=== PATIENT | male | born 1925 | race Caucasian/White ===

== ENCOUNTER 2017-01-17 20:40 | Inpatient (IN) | payer MEDICARE ==
--- NOTE | 2017-01-17 21:59 | RAD ---
indication: Laceration to posterior scalp after a fall COMPARISON: Most recent CT of the brain is dated May 09, [address] scan of the brain and and maxillofacial bones was performed without intravenous contrast enhancement. Contiguous axial sections were obtained from the lower cervical spine through the cranial vertex. BRAIN: The ventricles, cisterns and sulci exhibit age-appropriate symmetrical involutional changes similar in appearance to the previous brain CT. There is periventricular and subcortical white matter hypoattenuation consistent with chronic microvascular disease. No significant focal abnormality or mass effect is seen. The kennedy-white differentiation is adequately maintained. There is coarse atherosclerotic calcification of the vertebral arteries and bilateral petrous carotid arteries. There is no evidence for intracranial hemorrhage. No significant bony abnormality is present. The mastoid air cells are appropriately aerated. The visualized paranasal sinuses are clear. FACIAL BONES: Bones: There is no displaced fracture or dislocation. The orbital rim is intact. The zygomatic arch is intact. The pterygoid plates are intact Orbits: The globes are round. The optic nerves are symmetric. The extraocular musculature is normal. There is no post septal or intraconal inflammatory change. There is no retrobulbar hematoma. Paranasal Sinuses: The paranasal sinuses are clear. IMPRESSION: 1. No calvarial fracture or acute intracranial hemorrhage. 2. No facial bone fractures.
[2017-01-17 22:11] LABS: Hematocrit 43 % (42-52); Hemoglobin 14.3 g/dl (14.0-18.0); Mean Corpuscular HGB Conc 34 g/dl (31-36); Mean Corpuscular Hemoglobin 30 pg (27-31); Mean Corpuscular Volume 90 fL (80-94); Mean Platelet Volume 7 um3 (7.4-10.4); Red Blood Count 4.71 10^6/ul (4.0-5.4); Red Cell Distribution Width 13 % (10.5-15); White Blood Count 11.7 10^3/ul (3.5-10.8)
[2017-01-17 22:24] LABS: Albumin 3.7 g/dL (3.2-5.2); Calcium 8.9 mg/dL (8.6-10.3); EGFR Non-African American 74.6 (>60); Globulin 2.5 g/dL (2-4); Total Bilirubin 0.4 mg/dL (0.2-1.0); Total Protein 6.2 g/dL (6.4-8.9)
[2017-01-17 22:25] LABS: Potassium 3.3 mmol/L (3.5-5.0)
[2017-01-17 22:26] LABS: Troponin I 0.02 ng/mL (<0.04)
--- NOTE | 2017-01-17 23:28 | ED ---
Clarissa Ordonez SooYoung, scribed for Seth Alas MD on 01/17/17 at 2114 . 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 Pt has a bleeding cut to posterior head, and visible bruising and erythema to face across nose bridge. Family notes this is his third fall this week. Pt has recently begun ambulating with a walker. Family states pt had a recent dx: B12 deficiency. - History Of Current Complaint Chief Complaint: EDHeadInjury Stated Complaint: FALL Time Seen by Provider: 01/17/17 21:08 Hx Obtained From: Patient, Family/Lab Instructor Mechanism Of Injury: Fall From A Standing Position Onset/Duration: Started Hours Ago, Still Present Onset of Pain: Immediate Severity Currently: Moderate Severity Initially: Moderate Pain Intensity: 6 Pain Scale Used: 0-10 Numeric Location of Head Injury: Occipital Associated Signs And Symptoms: Redness, Bruising - Allergies/Home Medications Allergies/Adverse Reactions: Allergies Allergy/AdvReac Type Severity Reaction Status Date / Time No Known Allergies Allergy Verified 02/24/13 10:30 Home Medications: Home Medications Aspirin 81 MG TAB 81 mg PO DAILY 01/18/17 [History Confirmed 01/18/17] Celexa 20 mg PO DAILY 01/18/17 [History Confirmed 01/18/17] Keppra 500 500 mg PO BID 01/18/17 [History Confirmed 01/18/17] Losartan TAB* 25 mg PO DAILY 01/18/17 [History Confirmed 01/18/17] PMH/Surg Hx/FS Hx/Imm Hx Previously Healthy: No Endocrine/Hematology History: Denies: Hx Anticoagulant Therapy, Hx Blood Disorders, Hx Blood Transfusions, Hx Bone Marrow Disease, Hx Diabetes, Hx Systemic Lupus Erythematosus, Hx Sickle Cell Disease, Hx Thyroid Disease, Hx Anemia, Hx Unexplained Bleeding, Other Endocrine/Hematological Disorders Cardiovascular History: Reports: Hx Auto Implanted Cardiovert Defib, Hx Hypertension, Hx Pacemaker/ICD, Hx Valvular Heart Disease Denies: Hx Aneurysm, Hx Cardiac Arrest, Hx Cardiomegaly, Hx Congenital Heart Disease, Hx Congestive Heart Failure, Hx Coronary Artery Disease, Hx Deep Vein Thrombosis, Hx Hypercholesterolemia, Hx Hypotension, Hx Peripheral Vascular Disease, Hx Rheumatic Fever, Hx Syncope, Other Cardiovascular Problems/Disorders Respiratory History: Denies: Hx Asthma, Hx Chronic Bronchitis, Hx Chronic Obstructive Pulmonary Disease (COPD), Hx Cystic Fibrosis, Hx Lung Cancer, Hx Pleural Effusion, Hx Pneumonia, Hx Pulmonary Edema, Hx Pulmonary Embolism, Hx Seasonal Allergies, Hx Sleep Apnea, Other Respiratory Problems/Disorders GI History: Denies: Hx Cirrhosis, Hx Crohn's Disease, Hx Diverticulosis, Hx Gall Bladder Disease, Hx Gastroesophageal Reflux Disease, Hx Gastrointestinal Bleed, Hx Hiatal Hernia, Hx Irritable Bowel, Hx Jaundice, Hx Obstructive Bowel, Hx Ileostomy, Hx Pyloric Stenosis, Hx Ulcer, Other GI Disorders History: Denies: Hx Acute Renal Failure, Hx Benign Prostatic Hyperplasia, Hx Chronic Renal Failure, Hx Dialysis, Hx Kidney Infection, Hx Kidney Stones, Other Problems/Disorders Musculoskeletal History: Denies: Hx Arthritis, Hx Back Problems, Hx Bursitis, Hx Congenital Bone Abnormalities, Hx Fibromyalgia, Hx Gout, Hx Orthopedic Injury, Hx Osteoporosis, Hx Scoliosis, Hx Tendonitis, Other Musculoskeletal History Sensory History: Reports: Hx Cataracts Denies: Hx Contacts or Glasses, Hx Eye Injury, Hx Eye Prosthesis, Hx Glaucoma , Hx Macular Degeneration, Hx Vision Problem, Hx Deafness, Hx Hearing Aid, Hx Hearing Problem, Other Sensory Impairments Opthamlomology History: Reports: Hx Cataracts Denies: Hx Contacts or Glasses, Hx Eye Injury, Hx Eye Prosthesis, Hx Glaucoma , Hx Macular Degeneration, Hx Vision Problem, Other Sensory Impairments Neurological History: Reports: Hx Seizures Denies: Hx Dementia, Hx Developmental Delay, Hx Headaches, Hx Migraine, Hx Nerve Disease, Hx Spinal Cord Injury, Hx Transient Ischemic Attacks (TIA), Other Neuro Impairments/Disorders Psychiatric History: Denies: Hx Anxiety, Hx Attention Deficit Hyperactivity Disorder, Hx Eating Disorder, Hx Depression, Hx Panic Disorder, Hx Post Traumatic Stress Disorder, Hx Inpatient Treatment, Hx Community Mental Health Tx, Hx Schizophrenia, Hx Bipolar Disorder, Hx Suicide Attempt, Hx of Violent Episodes Against Others, Hx Substance Abuse, Other Psychiatric Issues/Disorders - Cancer History Hx Chemotherapy: No Hx Radiation Therapy: No - Surgical History Hx Anesthesia Reactions: No Infectious Disease History: No Infectious Disease History: Reports: Hx Shingles Denies: Hx Clostridium Difficile, Hx Hepatitis, Hx Human Immunodeficiency Virus (HIV), Hx Tuberculosis, Traveled Outside the [place] in Last 30 Days - Social History Alcohol Use: None Alcohol Amount: 1 beer daily Substance Use Type: Reports: None Smoking Status (MU): Former Smoker Review of Systems Positive: Bruising, Other - pos: erythema to face; lac to posterior of head All Other Systems Reviewed And Are Negative: Yes Physical Exam Triage Information Reviewed: Yes Vital Signs On Initial Exam: Initial Vitals Temp Pulse Resp BP Pulse Ox 97.7 F 70 16 189/93 92 01/17/17 20:41 01/17/17 20:41 01/17/17 20:41 01/17/17 20:41 01/17/17 20:41 Vital Signs Reviewed: Yes Appearance: Positive: Pain Distress - mild discomfort, Thin Skin: Positive: Warm Head/Face: Positive: Other - lac to bridge of nose occipital scalp Eyes: Positive: EOMI, MARISOL ENT: Positive: Hearing grossly normal Neck: Positive: Supple Respiratory/Lung Sounds: Positive: Clear to Auscultation, Breath Sounds Present Cardiovascular: Positive: RRR Abdomen Description: Positive: Nontender, Soft Bowel Sounds: Positive: Present Musculoskeletal: Positive: Strength/ROM Intact Psychiatric: Positive: Affect/Mood Appropriate Diagnostics - Vital Signs Vital Signs Temp Pulse Resp BP Pulse Ox 01/17/17 20:51 67 22 93 01/17/17 20:49 189/93 01/17/17 20:41 97.7 F 70 16 189/93 92 - Laboratory Lab Results: Lab Results 01/17/17 01/17/17 01/17/17 Range/Units 21:56 21:56 21:56 WBC 11.7 H (3.5-10.8) 10^3/ul RBC 4.71 (4.0-5.4) 10^6/ul Hgb 14.3 (14.0-18.0) g/dl Hct 43 (42-52) % MCV 90 (80-94) fL MCH 30 (27-31) pg MCHC 34 (31-36) g/dl RDW 13 (10.5-15) % Plt Count 221 (150-450) 10^3/ul MPV 7 L (7.4-10.4) um3 Neut % (Auto) 76.5 (38-83) % Lymph % (Auto) 12.3 L (25-47) % [place] % (Auto) 10.0 H (1-9) % Eos % (Auto) 0.6 (0-6) % Baso % (Auto) 0.6 (0-2) % Absolute Neuts (auto) 9.0 H (1.5-7.7) 10^3/ul Absolute Lymphs (auto) 1.4 (1.0-4.8) 10^3/ul Absolute Monos (auto) 1.2 H (0-0.8) 10^3/ul Absolute Eos (auto) 0.1 (0-0.6) 10^3/ul Absolute Basos (auto) 0.1 (0-0.2) 10^3/ul Absolute Nucleated RBC 0 10^3/ul Nucleated RBC % 0 INR (Anticoag Therapy) 0.96 (0.89-1.11) Sodium 130 L (133-145) mmol/L Potassium 3.3 L (3.5-5.0) mmol/L Chloride 97 L (101-111) mmol/L Carbon Dioxide 26 (22-32) mmol/L Anion Gap 7 (2-11) mmol/L BUN 19 (6-24) mg/dL Creatinine 0.95 (0.67-1.17) mg/dL Est GFR ( Amer) 96.0 (>60) Est GFR (Non-Af Amer) 74.6 (>60) BUN/Creatinine Ratio 20.0 (8-20) Glucose 105 H (70-100) mg/dL Lactic Acid (0.5-2.0) mmol/L Calcium 8.9 (8.6-10.3) mg/dL Magnesium 2.0 (1.9-2.7) mg/dL Total Bilirubin 0.40 (0.2-1.0) mg/dL AST 12 L (13-39) U/L ALT 8 (7-52) U/L Alkaline Phosphatase 92 (34-104) U/L Troponin I 0.02 (<0.04) ng/mL Total Protein 6.2 L (6.4-8.9) g/dL Albumin 3.7 (3.2-5.2) g/dL Globulin 2.5 (2-4) g/dL Albumin/Globulin Ratio 1.5 (1-3) 01/17/ Range/Units 21:56 WBC (3.5-10.8) 10^3/ul RBC (4.0-5.4) 10^6/ul Hgb (14.0-18.0) g/dl Hct (42-52) % MCV (80-94) fL MCH (27-31) pg MCHC (31-36) g/dl RDW (10.5-15) % Plt Count (150-450) 10^3/ul MPV (7.4-10.4) um3 Neut % (Auto) (38-83) % Lymph % (Auto) (25-47) % [place] % (Auto) (1-9) % Eos % (Auto) (0-6) % Baso % (Auto) (0-2) % Absolute Neuts (auto) (1.5-7.7) 10^3/ul Absolute Lymphs (auto) (1.0-4.8) 10^3/ul Absolute Monos (auto) (0-0.8) 10^3/ul Absolute Eos (auto) (0-0.6) 10^3/ul Absolute Basos (auto) (0-0.2) 10^3/ul Absolute Nucleated RBC 10^3/ul Nucleated RBC % INR (Anticoag Therapy) (0.89-1.11) Sodium (133-145) mmol/L Potassium (3.5-5.0) mmol/L Chloride (101-111) mmol/L Carbon Dioxide (22-32) mmol/L Anion Gap (2-11) mmol/L BUN (6-24) mg/dL Creatinine (0.67-1.17) mg/dL Est GFR ( Amer) (>60) Est GFR (Non-Af Amer) (>60) BUN/Creatinine Ratio (8-20) Glucose (70-100) mg/dL Lactic Acid 1.1 (0.5-2.0) mmol/L Calcium (8.6-10.3) mg/dL Magnesium (1.9-2.7) mg/dL Total Bilirubin (0.2-1.0) mg/dL AST (13-39) U/L ALT (7-52) U/L Alkaline Phosphatase (34-104) U/L Troponin I (<0.04) ng/mL Total Protein (6.4-8.9) g/dL Albumin (3.2-5.2) g/dL Globulin (2-4) g/dL Albumin/Globulin Ratio (1-3) Result Diagrams: 01/17/17 21:56 01/17/17 21:56 Lab Statement: Any lab studies that have been ordered have been reviewed, and results considered in the medical decision making process. - CT Maxillofacial CT Interpretation: No Acute Changes - IMPRESSION: 1. No calvarial fracture or acute intracranial hemorrhage. 2. No facial bone fractures. CT Interpretation Completed By: Radiologist BRAIN CT CT Interpretation: No Acute Changes - IMPRESSION: 1. No calvarial fracture or acute intracranial hemorrhage. 2. No facial bone fractures. CT Interpretation Completed By: Radiologist - EKG 1 EKG Interpretation: Paced rhythm Re-Evaluation - Re-Evaluation 1 Re-Evaluation Time: 23:49 Change: Unchanged Comment: Pt having dizziness upon ambulation. Will discuss admitting with hospitalist. 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 Pt has a bleeding cut to posterior head, and visible bruising and erythema to face across nose bridge. This is his third fall this week. Trop is 0.02. Maxillofacial CT is nml. Brain CT is nml. EKG shows pace rhythm. Lac repair performed by FILIBERTO Lizarraga, see her procedure note. - Diagnoses Provider Diagnoses: Head injury, Dizziness - Physician Notifications Discussed Care Of Patient With: Dr. Tirado, hospitalist Time Discussed With Above Provider: 23:49 Instructed by Provider To: Admit As Inpatient Discharge - Discharge Plan Condition: Fair Disposition: ADMITTED TO [facility] The documentation as recorded by the Clarissa alexander SooYoung accurately reflects the service I personally performed and the decisions made by me, Seth Alas MD.
--- NOTE | 2017-01-17 23:37 | PN ---
Progress Note - Progress Note Note: Wounds were cleaned and irrigated with normal saline. 6 lisa were placed in right posterior scalp laceration approximately 3-3.5cm in length, linear. Skin avulsion on bridge of nose was dressed with xeroform and telfa. Superficial laceration, linear, under right eye in periorbital space was glued with skin adhesive. All were completed without complication. Do not get wet for 24-48 hours. Remove in 5 days.
--- NOTE | 2017-01-18 00:17 | HP ---
H&P (Free Text) History and Physical: PCP: BRANDON Eisenberg MD Neurology: Jerardo Concepcion MD Date/Time of Evaluation: 01/17/2017 9151 CC: head injury 2nd fall HPI: Mr Jarrett is an 89YO male HX petit mal seizures started on citalopram ~3 weeks ago. ~2 weeks ago he experienced a mechanical fall and family purchased a walker. He fell a 2nd time, but was not using the walker. Since he has fallen twice more, most recently tonight. This fall he did hit his head and thinks he lost consciousness, but his & daughter are present and state he did not lose consciousness. He denies prodromal symptoms, specifically chest pain, SOB, palpitations, changes in vision/speech, focal W/N/T, or other issues. The family is confident these recent falls are not related to seizures, but not all have been witnessed. He did have a levetiracetam level last week which was therapeutic at 32. PMedHx HTN bioprosthetic AVR seizure disorder (petit mal) GERD BPH B12 deficiency w/ mild peripheral neuropathy empyema age 5 s/p decortication Ambulatory Orders Nursing to reconcile. Hydrochlorothiazide TAB* [Hydrodiuril TAB*] 12.5 mg PO DAILY 02/24/13 Lansoprazole [Prevacid] 15 mg PO DAILY 02/24/13 Metoprolol Tartrate TAB* [Lopressor TAB*] 25 mg PO DAILY 02/24/13 Ramipril CAP* [Altace CAP*] 15 mg PO DAILY 02/24/13 Tamsulosin CAP* [Flomax CAP*] 0.4 mg PO BEDTIME 05/08/14 Allergies No Known Allergies Allergy (Verified 02/24/13 10:30) PSurgHx cataract extraction AV pacer placement empyema s/p decortication age 5 bioprosthetic AVR cholecystectomy appendectomy hernia repair SocHx: former smoker quit >50years ago, minimal alcohol, no recreational drugs; lives at home with his , 2 steps; family independently purchased a walker ~ 10days ago; full code status FamHx: positive for HTN, HLD, CAD ROS: as above, otherwise reviewed and all were negative Constitutional: NAD, normally developed, well-nourished elderly white male vitals: Vital Signs Temp 36.5 C 01/17/17 20:41 Pulse 68 01/18/17 00:00 Resp 25 01/18/17 00:00 BP 198/96 01/17/17 23:56 Pulse Ox 93 01/18/17 00:00 Intake & Output 01/17/17 01/17/17 01/18/17 11:59 23:59 11:59 Weight 63.503 kg HEENM: facial ecchymosis; sclera/conjunctiva: non-icteric/mildly injected OU; blephara: ecchymotic "raccoon eyes"; hearing: clinically mild to moderately decreased; nose/nasal: ecchymosis, clean bandage in place; oropharynx: clear, mucosa tacky Neck: soft tissue: non-tender; thyroid: normal Pulmonary: clear to auscultation bilaterally, good aeration, no accessory muscle use CV: RR/RR, normal S1S2, no carotid bruit, no jugular venous distention, 2+ B DP/ PT, no edema Abdominal: soft, non-distended, non-tender, no rebound/guarding/rigidity, normoactive bowel sounds, no hepatosplenomegaly or masses, no costovertebral angle tenderness Musculoskeletal: general: grossly intact; gait: unstable w/ 2 person assist & walker Integumental: as above, otherwise normal appearance and texture of exposed skin Neurologic B feet: intact crude touch with extinction on the R, intact proprioception B & pinprick B, absent vibratory sense B Psychiatric orientation: AA&O to PPS, but mildly confused affect: calm mood: acquiescent eye contact: fair to poor content: partially reliable responses: mildly slowed insight: poor Testing: Lab Results 01/17/17 01/17/17 01/17/17 Range/Units 21:56 21:56 21:56 WBC 11.7 H (3.5-10.8) 10^3/ul RBC 4.71 (4.0-5.4) 10^6/ul Hgb 14.3 (14.0-18.0) g/dl Hct 43 (42-52) % MCV 90 (80-94) fL MCH 30 (27-31) pg MCHC 34 (31-36) g/dl RDW 13 (10.5-15) % Plt Count 221 (150-450) 10^3/ul MPV 7 L (7.4-10.4) um3 Neut % (Auto) 76.5 (38-83) % Lymph % (Auto) 12.3 L (25-47) % [place] % (Auto) 10.0 H (1-9) % Eos % (Auto) 0.6 (0-6) % Baso % (Auto) 0.6 (0-2) % Absolute Neuts (auto) 9.0 H (1.5-7.7) 10^3/ul Absolute Lymphs (auto) 1.4 (1.0-4.8) 10^3/ul Absolute Monos (auto) 1.2 H (0-0.8) 10^3/ul Absolute Eos (auto) 0.1 (0-0.6) 10^3/ul Absolute Basos (auto) 0.1 (0-0.2) 10^3/ul Absolute Nucleated RBC 0 10^3/ul Nucleated RBC % 0 INR (Anticoag Therapy) 0.96 (0.89-1.11) Sodium 130 L (133-145) mmol/L Potassium 3.3 L (3.5-5.0) mmol/L Chloride 97 L (101-111) mmol/L Carbon Dioxide 26 (22-32) mmol/L Anion Gap 7 (2-11) mmol/L BUN 19 (6-24) mg/dL Creatinine 0.95 (0.67-1.17) mg/dL Est GFR ( Amer) 96.0 (>60) Est GFR (Non-Af Amer) 74.6 (>60) BUN/Creatinine Ratio 20.0 (8-20) Glucose 105 H (70-100) mg/dL Lactic Acid (0.5-2.0) mmol/L Calcium 8.9 (8.6-10.3) mg/dL Magnesium 2.0 (1.9-2.7) mg/dL Total Bilirubin 0.40 (0.2-1.0) mg/dL AST 12 L (13-39) U/L ALT 8 (7-52) U/L Alkaline Phosphatase 92 (34-104) U/L Troponin I 0.02 (<0.04) ng/mL Total Protein 6.2 L (6.4-8.9) g/dL Albumin 3.7 (3.2-5.2) g/dL Globulin 2.5 (2-4) g/dL Albumin/Globulin Ratio 1.5 (1-3) 05// Range/Units 21:56 WBC (3.5-10.8) 10^3/ul RBC (4.0-5.4) 10^6/ul Hgb (14.0-18.0) g/dl Hct (42-52) % MCV (80-94) fL MCH (27-31) pg MCHC (31-36) g/dl RDW (10.5-15) % Plt Count (150-450) 10^3/ul MPV (7.4-10.4) um3 Neut % (Auto) (38-83) % Lymph % (Auto) (25-47) % [place] % (Auto) (1-9) % Eos % (Auto) (0-6) % Baso % (Auto) (0-2) % Absolute Neuts (auto) (1.5-7.7) 10^3/ul Absolute Lymphs (auto) (1.0-4.8) 10^3/ul Absolute Monos (auto) (0-0.8) 10^3/ul Absolute Eos (auto) (0-0.6) 10^3/ul Absolute Basos (auto) (0-0.2) 10^3/ul Absolute Nucleated RBC 10^3/ul Nucleated RBC % INR (Anticoag Therapy) (0.89-1.11) Sodium (133-145) mmol/L Potassium (3.5-5.0) mmol/L Chloride (101-111) mmol/L Carbon Dioxide (22-32) mmol/L Anion Gap (2-11) mmol/L BUN (6-24) mg/dL Creatinine (0.67-1.17) mg/dL Est GFR ( Amer) (>60) Est GFR (Non-Af Amer) (>60) BUN/Creatinine Ratio (8-20) Glucose (70-100) mg/dL Lactic Acid 1.1 (0.5-2.0) mmol/L Calcium (8.6-10.3) mg/dL Magnesium (1.9-2.7) mg/dL Total Bilirubin (0.2-1.0) mg/dL AST (13-39) U/L ALT (7-52) U/L Alkaline Phosphatase (34-104) U/L Troponin I (<0.04) ng/mL Total Protein (6.4-8.9) g/dL Albumin (3.2-5.2) g/dL Globulin (2-4) g/dL Albumin/Globulin Ratio (1-3) ECG, personally reviewed: atrially sensed ventricularly paced rhythm rate 64 CT brain & maxillofacial WO, personally reviewed: IMPRESSION: 1. No calvarial fracture or acute intracranial hemorrhage. 2. No facial bone fractures. 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 : pain control : check UA, nursing to straight cath if needed : hold citalopram as it lowers the seizure threshold (falls began after initiation) & contributes to dizziness : hold HCTZ : supportive care hypoKalemia : replace & recheck Secondary HTN : continue losartan, metoprolol : hold HCTZ seizure disorder, petit mal : continue levetiracetam bioprosthetic AVR : no acute issues : update ECHO to confirm adequate function GERD : continue lansoprazole B12 deficiency w/ mild peripheral neuropathy : outpatient f/u to initiate B12 replacement : neuropathy not severe enough to significant contribute to falls BPH : continue tamsulosin Admission Rational: DVTp: SCDs, no anticoagulation w/ recent closed head injury Code Status: full HCP:
[2017-01-18] MEDS ORDERED: Ondansetron INJ* 2 MG/ML VIAL IV PRN (01:25)
[2017-01-18] MEDS: Potassium Chlor TAB* 20 MEQ TAB.ER PO SCH ×2 (01:51→06:02)
[2017-01-18 02:27] LABS: Urine Bacteria Absent (Absent); Urine Bilirubin Negative (Negative); Urine Glucose Negative (Negative); Urine Nitrite Negative (Negative)
[2017-01-18] MEDS: Ibuprofen TAB* 400 MG PO PRN (02:45)
[2017-01-18] MEDS: NS 0.9% 1000 ML* 1,000 ML IV SCH (03:38)
[2017-01-18] MEDS: Acetaminophen TAB* 325 MG PO PRN (04:59)
[2017-01-18] MEDS ORDERED: Omeprazole CAP* 20 MG PO SCH (06:00)
[2017-01-18] MEDS: Omeprazole CAP* 20 MG PO SCH (06:01)
[2017-01-18 06:56] LABS: Hematocrit 40 % (42-52); Hemoglobin 13.8 g/dl (14.0-18.0); Mean Corpuscular HGB Conc 34 g/dl (31-36); Mean Corpuscular Hemoglobin 31 pg (27-31); Mean Corpuscular Volume 89 fL (80-94); Mean Platelet Volume 7 um3 (7.4-10.4); Red Blood Count 4.52 10^6/ul (4.0-5.4); Red Cell Distribution Width 13 % (10.5-15); White Blood Count 10.9 10^3/ul (3.5-10.8)
[2017-01-18 07:09] LABS: BUN/Creatinine Ratio 18.8 (8-20); Calcium 8.7 mg/dL (8.6-10.3); EGFR African American 94.8 (>60); EGFR Non-African American 73.8 (>60); Potassium 3.5 mmol/L (3.5-5.0)
[2017-01-18] MEDS: levETIRAcetam TAB* 500 MG PO SCH ×2 (08:52→20:51)
[2017-01-18] MEDS: Docusate CAP* 100 MG PO SCH ×2 (08:52→20:51)
[2017-01-18] MEDS: Aspirin EC Low Dose* 81 MG TAB.EC PO SCH (08:52)
[2017-01-18] MEDS: Metoprolol Tartrate TAB* 25 MG PO SCH (08:52)
[2017-01-18] MEDS ORDERED: Losartan TAB* 25 MG PO SCH (09:00)
--- NOTE | 2017-01-18 18:10 | PN ---
Subjective Date of Service: 01/18/17 Interval History: Patient had fall 2 weeks ago, Friday, 1 day after starting Celexa. Has been walking 10-20 min 2x/day in Aug-November in [place] w/o significant balance issues. In last 2 weeks has fallen 3 times, first in shower, hit head on shower door. 2nd fall was in kitchen, third was yesterday, getting up from bed to walker. He denies vertigo, feels suddenly imbalanced when upright. Does have h/o seizure, described as abscence seizures by family. On [facility], sees Dr. Concepcion Family concerned about different BP in both arms. Also concerned about concussion from 1st fall. Family History: Unchanged from Admission Social History: Unchanged from Admission Past Medical History: Unchanged from Admission Objective Active Medications: Acetaminophen (Tylenol Tab*) 650 mg PO Q6H PRN PRN Reason: FEVER/PAIN Last Admin: 01/18/17 04:59 Dose: 650 mg Albuterol (Ventolin 2.5 Mg/3 Ml Neb.Carmen*) 2.5 mg INH Q2H PRN PRN Reason: SOB/WHEEZING Aspirin (Aspirin Ec Low Dose*) 81 mg PO DAILY [facility] Last Admin: 01/18/17 08:52 Dose: 81 mg Docusate Sodium (Colace Cap*) 200 mg PO BID [facility] Last Admin: 01/18/17 08:52 Dose: 200 mg Sodium Chloride (Ns 0.9% 1000 Ml*) 1,000 mls @ 75 mls/hr IV PER RATE [facility] Last Admin: 01/18/17 03:38 Dose: 75 mls/hr Ibuprofen (Motrin Tab*) 400 mg PO Q8H PRN PRN Reason: FEVER/PAIN Last Admin: 01/18/17 02:45 Dose: 400 mg Levetiracetam (Keppra Tab*) 500 mg PO BID [facility] Last Admin: 01/18/17 08:52 Dose: 500 mg Losartan Potassium (Cozaar Tab*) 25 mg PO DAILY [facility] Last Admin: 01/18/17 08:52 Dose: 25 mg Metoprolol Tartrate (Lopressor Tab*) 25 mg PO DAILY [facility] Last Admin: 01/18/17 08:52 Dose: 25 mg Omeprazole (Prilosec Cap*) 20 mg PO DAILY@0600 [facility] PRN Reason: Protocol Last Admin: 01/18/17 06:01 Dose: 20 mg Ondansetron HCl (Zofran Inj*) 4 mg IV Q6H PRN PRN Reason: NAUSEA Tamsulosin HCl (Flomax Cap*) 0.4 mg PO BEDTIME [facility] Vital Signs 01/18/17 01/18/17 01/18/17 07:47 08:00 11:25 Temperature 36.6 C 36.4 C Pulse Rate 61 63 Respiratory 16 16 16 Rate Blood Pressure 152/92 146/85 (mmHg) O2 Sat by Pulse 96 97 Oximetry 01/18/17 15:50 Temperature 36.1 C Pulse Rate 60 Respiratory Rate Blood Pressure 184/98 (mmHg) O2 Sat by Pulse 96 Oximetry Oxygen Devices in Use Now: None Appearance: elderly, alert, bandage on nose Eyes: No Scleral Icterus Ears/Nose/Mouth/Throat: - - bandage Neck: No Thyroid Enlargement, Masses Respiratory: Clear to Auscultation Cardiovascular: NL Sounds; No Murmurs; No JVD Abdominal: NL Sounds; No Tenderness; No Distention Lymphatic: No Cervical Adenopathy Extremities: No Edema Skin: - - ecchymosis in periorbital area bilat Neurological: Alert and Oriented x 3, - - DTR 1+/symmetric UE, LE, no tremor or cogwheeling, no pronator drift. L leg clumsy in heel/ennis maneuver Lines/Tubes/Other Access: Clean, Dry and Intact Peripheral IV Result Diagrams: 01/18/17 06:23 01/18/17 06:23 Additional Lab and Data: Lab Results 01/17/17 01/17/17 01/17/17 Range/Units 21:56 21:56 21:56 WBC 11.7 H (3.5-10.8) 10^3/ul RBC 4.71 (4.0-5.4) 10^6/ul Hgb 14.3 (14.0-18.0) g/dl Hct 43 (42-52) % MCV 90 (80-94) fL MCH 30 (27-31) pg MCHC 34 (31-36) g/dl RDW 13 (10.5-15) % Plt Count 221 (150-450) 10^3/ul MPV 7 L (7.4-10.4) um3 Neut % (Auto) 76.5 (38-83) % Lymph % (Auto) 12.3 L (25-47) % [place] % (Auto) 10.0 H (1-9) % Eos % (Auto) 0.6 (0-6) % Baso % (Auto) 0.6 (0-2) % Absolute Neuts (auto) 9.0 H (1.5-7.7) 10^3/ul Absolute Lymphs (auto) 1.4 (1.0-4.8) 10^3/ul Absolute Monos (auto) 1.2 H (0-0.8) 10^3/ul Absolute Eos (auto) 0.1 (0-0.6) 10^3/ul Absolute Basos (auto) 0.1 (0-0.2) 10^3/ul Absolute Nucleated RBC 0 10^3/ul Nucleated RBC % 0 INR (Anticoag Therapy) 0.96 (0.89-1.11) Sodium 130 L (133-145) mmol/L Potassium 3.3 L (3.5-5.0) mmol/L Chloride 97 L (101-111) mmol/L Carbon Dioxide 26 (22-32) mmol/L Anion Gap 7 (2-11) mmol/L BUN 19 (6-24) mg/dL Creatinine 0.95 (0.67-1.17) mg/dL Est GFR ( Amer) 96.0 (>60) Est GFR (Non-Af Amer) 74.6 (>60) BUN/Creatinine Ratio 20.0 (8-20) Glucose 105 H (70-100) mg/dL Lactic Acid (0.5-2.0) mmol/L Calcium 8.9 (8.6-10.3) mg/dL Magnesium 2.0 (1.9-2.7) mg/dL Total Bilirubin 0.40 (0.2-1.0) mg/dL AST 12 L (13-39) U/L ALT 8 (7-52) U/L Alkaline Phosphatase 92 (34-104) U/L Troponin I 0.02 (<0.04) ng/mL Total Protein 6.2 L (6.4-8.9) g/dL Albumin 3.7 (3.2-5.2) g/dL Globulin 2.5 (2-4) g/dL Albumin/Globulin Ratio 1.5 (1-3) 05/26/17 Range/Units 21:56 WBC (3.5-10.8) 10^3/ul RBC (4.0-5.4) 10^6/ul Hgb (14.0-18.0) g/dl Hct (42-52) % MCV (80-94) fL MCH (27-31) pg MCHC (31-36) g/dl RDW (10.5-15) % Plt Count (150-450) 10^3/ul MPV (7.4-10.4) um3 Neut % (Auto) (38-83) % Lymph % (Auto) (25-47) % [place] % (Auto) (1-9) % Eos % (Auto) (0-6) % Baso % (Auto) (0-2) % Absolute Neuts (auto) (1.5-7.7) 10^3/ul Absolute Lymphs (auto) (1.0-4.8) 10^3/ul Absolute Monos (auto) (0-0.8) 10^3/ul Absolute Eos (auto) (0-0.6) 10^3/ul Absolute Basos (auto) (0-0.2) 10^3/ul Absolute Nucleated RBC 10^3/ul Nucleated RBC % INR (Anticoag Therapy) (0.89-1.11) Sodium (133-145) mmol/L Potassium (3.5-5.0) mmol/L Chloride (101-111) mmol/L Carbon Dioxide (22-32) mmol/L Anion Gap (2-11) mmol/L BUN (6-24) mg/dL Creatinine (0.67-1.17) mg/dL Est GFR ( Amer) (>60) Est GFR (Non-Af Amer) (>60) BUN/Creatinine Ratio (8-20) Glucose (70-100) mg/dL Lactic Acid 1.1 (0.5-2.0) mmol/L Calcium (8.6-10.3) mg/dL Magnesium (1.9-2.7) mg/dL Total Bilirubin (0.2-1.0) mg/dL AST (13-39) U/L ALT (7-52) U/L Alkaline Phosphatase (34-104) U/L Troponin I (<0.04) ng/mL Total Protein (6.4-8.9) g/dL Albumin (3.2-5.2) g/dL Globulin (2-4) g/dL Albumin/Globulin Ratio (1-3) Assess/Plan/Problems-Billing Assessment: 89 year old man w/ recurrent falls in last 2 weeks, possibly due to SSRI, hyponatremia, UTI, cerebellar stroke. - Patient Problems (1) Ataxia Current Visit: Yes Status: Acute Priority: High Code(s): R27.0 - ATAXIA, UNSPECIFIED SNOMED Code(s): 04411817 Comment: -Differential as above discussed with patient and family -Differential also includes parkinsons disease, spinal stenosis -Will pursue MRI brain r/o cerebellar infarct. -Consider neurology consult. PT tiago appreciated. (2) UTI (urinary tract infection) Current Visit: Yes Status: Acute Priority: Medium Comment: -UA consistent with UTI, only symptom would be recurrent falls. -starting on Ceftin PO (3) Subclavian arterial stenosis Current Visit: Yes Status: Acute Priority: Medium Code(s): I77.1 - STRICTURE OF ARTERY SNOMED Code(s): 636538769 Comment: -suspect subclavian stenosis based on differential BP in both arms -CTA chest/neck great vessels discussed -repeat BP 186/95 LT arm, 174/94 RT arm. Will not pursue CT at this time. (4) Vitamin B12 deficiency Current Visit: Yes Status: Acute Priority: Medium Code(s): E53.8 - DEFICIENCY OF OTHER SPECIFIED B GROUP VITAMINS SNOMED Code(s): 291942853 Comment: -newly diagnosed 1 week ago, not treated yet -B12 IM initiated today -may have peripheral neuropathy contributing to imbalance (5) Hyponatremia Current Visit: No Status: Acute Priority: Medium Onset Date: 05/08/14 Code(s): E87.1 - HYPO-OSMOLALITY AND HYPONATREMIA SNOMED Code(s): 86343842 Comment: -hyponatremia is mild, may be due to SSRI, or HCTZ. -Holding above, receiving IVF, reasses in AM (6) Hypertension Current Visit: Yes Status: Acute Priority: Medium Code(s): I10 - ESSENTIAL (PRIMARY) HYPERTENSION SNOMED Code(s): 80955320 Comment: -BP running high, will increase losartan -ARBs can also cause hyponatremia, may need to be held. Status and Disposition: Requires inpatient admission for further investigation of ataxia
[2017-01-18] MEDS ORDERED: Cyanocobalamin INJ * 1,000 MCG/ML VIAL 1 ML VIAL IM SCH (19:00)
[2017-01-18] MEDS: Losartan TAB* 25 MG PO SCH (20:51)
[2017-01-18] MEDS: Tamsulosin CAP* 0.4 MG PO SCH (20:51)
[2017-01-18] MEDS: ceFUROXime TAB(*) 250 MG PO SCH (20:51)
[2017-01-19 05:26] LABS: Hematocrit 42 % (42-52); Mean Corpuscular HGB Conc 33 g/dl (31-36); Mean Corpuscular Hemoglobin 30 pg (27-31); Mean Corpuscular Volume 90 fL (80-94); Mean Platelet Volume 7 um3 (7.4-10.4); Red Blood Count 4.66 10^6/ul (4.0-5.4); Red Cell Distribution Width 13 % (10.5-15); White Blood Count 11.4 10^3/ul (3.5-10.8)
[2017-01-19] MEDS: Omeprazole CAP* 20 MG PO SCH (05:26)
[2017-01-19 05:43] LABS: BUN/Creatinine Ratio 17.3 (8-20); Calcium 8.6 mg/dL (8.6-10.3); EGFR African American 126.1 (>60); EGFR Non-African American 98.1 (>60); Potassium 3.5 mmol/L (3.5-5.0)
[2017-01-19] MEDS: levETIRAcetam TAB* 500 MG PO SCH ×2 (08:47→20:57)
[2017-01-19] MEDS: Losartan TAB* 25 MG PO SCH ×2 (08:47→20:57)
[2017-01-19] MEDS: ceFUROXime TAB(*) 250 MG PO SCH ×2 (08:47→20:57)
[2017-01-19] MEDS: Docusate CAP* 100 MG PO SCH (08:48)
[2017-01-19] MEDS: Metoprolol Tartrate TAB* 25 MG PO SCH (08:48)
[2017-01-19] MEDS: Aspirin EC Low Dose* 81 MG TAB.EC PO SCH (08:48)
[2017-01-19] MEDS: NS 0.9% 1000 ML* 1,000 ML IV SCH (09:52)
--- NOTE | 2017-01-19 11:16 | PN ---
Subjective Date of Service: 01/19/17 Interval History: Pt reportedly had a very busy morning with being up to the chair twice, walking in the [place] and to and from the bathroom a couple times. When I go to see the patient he is sleeping but awakens to voice and light touch. He denies any pain at the time of my evaluation. He denies SOB. Family History: Unchanged from Admission Social History: Unchanged from Admission Past Medical History: Unchanged from Admission Objective Active Medications: Acetaminophen (Tylenol Tab*) 650 mg PO Q6H PRN PRN Reason: FEVER/PAIN Last Admin: 01/18/17 04:59 Dose: 650 mg Albuterol (Ventolin 2.5 Mg/3 Ml Neb.Carmen*) 2.5 mg INH Q2H PRN PRN Reason: SOB/WHEEZING Aspirin (Aspirin Ec Low Dose*) 81 mg PO DAILY [facility] Last Admin: 01/19/17 08:48 Dose: 81 mg Cefuroxime Axetil (Ceftin Tab(*)) 250 mg PO BID [facility] Stop: 01/23/17 20:59 Last Admin: 01/19/17 08:47 Dose: 250 mg Cyanocobalamin (Vitamin B12 Inj *) 1,000 mcg IM Q30D [facility] Last Admin: 01/18/17 20:45 Dose: 1,000 mcg Docusate Sodium (Colace Cap*) 200 mg PO BID [facility] Last Admin: 01/19/17 08:48 Dose: 200 mg Sodium Chloride (Ns 0.9% 1000 Ml*) 1,000 mls @ 75 mls/hr IV PER RATE [facility] Last Admin: 01/19/17 09:52 Dose: 75 mls/hr Ibuprofen (Motrin Tab*) 400 mg PO Q8H PRN PRN Reason: FEVER/PAIN Last Admin: 01/18/17 02:45 Dose: 400 mg Levetiracetam (Keppra Tab*) 500 mg PO BID [facility] Last Admin: 01/19/17 08:47 Dose: 500 mg Losartan Potassium (Cozaar Tab*) 25 mg PO BID [facility] Last Admin: 01/19/17 08:47 Dose: 25 mg Metoprolol Tartrate (Lopressor Tab*) 25 mg PO DAILY [facility] Last Admin: 01/19/17 08:48 Dose: 25 mg Omeprazole (Prilosec Cap*) 20 mg PO DAILY@0600 [facility] PRN Reason: Protocol Last Admin: 01/19/17 05:26 Dose: 20 mg Ondansetron HCl (Zofran Inj*) 4 mg IV Q6H PRN PRN Reason: NAUSEA Tamsulosin HCl (Flomax Cap*) 0.4 mg PO BEDTIME [facility] Last Admin: 01/18/17 20:51 Dose: 0.4 mg Vital Signs 01/18/17 01/18/17 01/18/17 11:25 15:50 19:25 Temperature 97.5 F 96.9 F Pulse Rate 63 60 Respiratory 16 Rate Blood Pressure 146/85 184/98 186/93 (mmHg) O2 Sat by Pulse 97 96 Oximetry 01/18/17 01/18/17 01/18/17 19:30 20:00 23:20 Temperature 97.4 F Pulse Rate 97 Respiratory 22 18 Rate Blood Pressure 174/94 201/100 (mmHg) O2 Sat by Pulse 93 Oximetry 01/18/17 01/19/17 01/19/17 23:56 03:15 07:40 Temperature 98.3 F Pulse Rate 75 35 Respiratory 16 16 Rate Blood Pressure 160/96 125/69 136/63 (mmHg) O2 Sat by Pulse 93 93 Oximetry 01/19/17 01/19/17 07:46 08:00 Temperature Pulse Rate 63 Respiratory 16 Rate Blood Pressure (mmHg) O2 Sat by Pulse Oximetry Oxygen Devices in Use Now: None Appearance: Elderly male lying in bed sleeping, awakens to voice, NAD Eyes: No Scleral Icterus Ears/Nose/Mouth/Throat: Mucous Membranes Moist Respiratory: Symmetrical Chest Expansion and Respiratory Effort, Clear to Auscultation Cardiovascular: NL Sounds; No Murmurs; No JVD, RRR, No Edema Abdominal: NL Sounds; No Tenderness; No Distention Extremities: No Clubbing, Cyanosis Skin: No Nodules or Sclerosis, - - cut across the bridge of the nose, scant crusted drainage noted on dressing Neurological: - - sleepy but does answer some questions Result Diagrams: 01/19/17 05:18 01/19/17 05:18 Additional Lab and Data: Lab Results 01/17/17 01/17/17 01/17/17 Range/Units 21:56 21:56 21:56 WBC 11.7 H (3.5-10.8) 10^3/ul RBC 4.71 (4.0-5.4) 10^6/ul Hgb 14.3 (14.0-18.0) g/dl Hct 43 (42-52) % MCV 90 (80-94) fL MCH 30 (27-31) pg MCHC 34 (31-36) g/dl RDW 13 (10.5-15) % Plt Count 221 (150-450) 10^3/ul MPV 7 L (7.4-10.4) um3 Neut % (Auto) 76.5 (38-83) % Lymph % (Auto) 12.3 L (25-47) % [place] % (Auto) 10.0 H (1-9) % Eos % (Auto) 0.6 (0-6) % Baso % (Auto) 0.6 (0-2) % Absolute Neuts (auto) 9.0 H (1.5-7.7) 10^3/ul Absolute Lymphs (auto) 1.4 (1.0-4.8) 10^3/ul Absolute Monos (auto) 1.2 H (0-0.8) 10^3/ul Absolute Eos (auto) 0.1 (0-0.6) 10^3/ul Absolute Basos (auto) 0.1 (0-0.2) 10^3/ul Absolute Nucleated RBC 0 10^3/ul Nucleated RBC % 0 INR (Anticoag Therapy) 0.96 (0.89-1.11) Sodium 130 L (133-145) mmol/L Potassium 3.3 L (3.5-5.0) mmol/L Chloride 97 L (101-111) mmol/L Carbon Dioxide 26 (22-32) mmol/L Anion Gap 7 (2-11) mmol/L BUN 19 (6-24) mg/dL Creatinine 0.95 (0.67-1.17) mg/dL Est GFR ( Amer) 96.0 (>60) Est GFR (Non-Af Amer) 74.6 (>60) BUN/Creatinine Ratio 20.0 (8-20) Glucose 105 H (70-100) mg/dL Lactic Acid (0.5-2.0) mmol/L Calcium 8.9 (8.6-10.3) mg/dL Magnesium 2.0 (1.9-2.7) mg/dL Total Bilirubin 0.40 (0.2-1.0) mg/dL AST 12 L (13-39) U/L ALT 8 (7-52) U/L Alkaline Phosphatase 92 (34-104) U/L Troponin I 0.02 (<0.04) ng/mL Total Protein 6.2 L (6.4-8.9) g/dL Albumin 3.7 (3.2-5.2) g/dL Globulin 2.5 (2-4) g/dL Albumin/Globulin Ratio 1.5 (1-3) 05/26/17 Range/Units 21:56 WBC (3.5-10.8) 10^3/ul RBC (4.0-5.4) 10^6/ul Hgb (14.0-18.0) g/dl Hct (42-52) % MCV (80-94) fL MCH (27-31) pg MCHC (31-36) g/dl RDW (10.5-15) % Plt Count (150-450) 10^3/ul MPV (7.4-10.4) um3 Neut % (Auto) (38-83) % Lymph % (Auto) (25-47) % [place] % (Auto) (1-9) % Eos % (Auto) (0-6) % Baso % (Auto) (0-2) % Absolute Neuts (auto) (1.5-7.7) 10^3/ul Absolute Lymphs (auto) (1.0-4.8) 10^3/ul Absolute Monos (auto) (0-0.8) 10^3/ul Absolute Eos (auto) (0-0.6) 10^3/ul Absolute Basos (auto) (0-0.2) 10^3/ul Absolute Nucleated RBC 10^3/ul Nucleated RBC % INR (Anticoag Therapy) (0.89-1.11) Sodium (133-145) mmol/L Potassium (3.5-5.0) mmol/L Chloride (101-111) mmol/L Carbon Dioxide (22-32) mmol/L Anion Gap (2-11) mmol/L BUN (6-24) mg/dL Creatinine (0.67-1.17) mg/dL Est GFR ( Amer) (>60) Est GFR (Non-Af Amer) (>60) BUN/Creatinine Ratio (8-20) Glucose (70-100) mg/dL Lactic Acid 1.1 (0.5-2.0) mmol/L Calcium (8.6-10.3) mg/dL Magnesium (1.9-2.7) mg/dL Total Bilirubin (0.2-1.0) mg/dL AST (13-39) U/L ALT (7-52) U/L Alkaline Phosphatase (34-104) U/L Troponin I (<0.04) ng/mL Total Protein (6.4-8.9) g/dL Albumin (3.2-5.2) g/dL Globulin (2-4) g/dL Albumin/Globulin Ratio (1-3) Assess/Plan/Problems-Billing Mr Jarrett is an 89 year old man with a h/o HTN, seizure disorder, B12 deficiency and bioprosthetic AVR who presented to the ER with c/o recurrent falls in last 2 weeks. - Patient Problems (1) Ataxia Current Visit: Yes Status: Acute Priority: High Code(s): R27.0 - ATAXIA, UNSPECIFIED SNOMED Code(s): 19180525 Comment: Etiology is not clear at this time. ? cerebellar CVA given sudden onset. He was diagnosed as being B12 deficient but I doubt that would present as suddent weakness/falls. Ventricles are not markedly enlarged but ? NPH. By report the patient is seeming better today than yesterday. He was started on cefuroxime yesterday for possible UTI despite the urine culture being negative. Will continue to follow his ability to ambulate safely. Follow up PT recommendations. May need STR. (2) UTI (urinary tract infection) Current Visit: Yes Status: Acute Comment: UA is abnormal though culture is negative. Given visible improvement in his symptoms after starting the Abx will continue a course. (3) Hypertension Current Visit: Yes Status: Acute Code(s): I10 - ESSENTIAL (PRIMARY) HYPERTENSION SNOMED Code(s): 42464786 Comment: BP improved today. Continue increased dose of losartan and home dose of metoprolol. HCTZ discontinued due to hyponatremia. (4) Vitamin B12 deficiency Current Visit: Yes Status: Acute Code(s): E53.8 - DEFICIENCY OF OTHER SPECIFIED B GROUP VITAMINS SNOMED Code(s): 425386961 Comment: Pt recieved IM B12 01/18/17. ? if B12 deficiency has contributed to his falling. (5) Seizure disorder Current Visit: Yes Status: Acute Code(s): G40.909 - EPILEPSY, UNSP, NOT INTRACTABLE, WITHOUT STATUS EPILEPTICUS SNOMED Code(s): 192954510 Comment: Luis Lr. (6) DVT prophylaxis Current Visit: Yes Status: Acute Code(s): JLD4047 - SNOMED Code(s): 064465025 Comment: start SQ heparin as repeat CT negative for bleed (7) DNR (do not resuscitate) Current Visit: Yes Status: Acute Status and Disposition: .
[2017-01-19] MEDS ORDERED: Docusate CAP* 100 MG PO PRN (11:24)
--- NOTE | 2017-01-19 12:19 | ECHO ---
Patient: MINNA HINES [facility] Rec#: [id number] : 1925 Date: 01/19/2017 Age: 89y Height: 172.72 cm / 68.0 in Weight: 79.38 kg / 175.0 lbs Sex: M BSA: 1.93 Room#: 405 Admit Date#: 01/18/2017 Type: Inpatient Referring: William Tirado MD Reading: Tristen Wilson MD [employer] Machine Operator: Ira Flynn [facility] Transthoracic Echocardiogram Indication: Aortic valve disorder HR: 60 Rhythm: Paced Findings History: HTN, s/p AVR with bioprosthetic valve,GERD,seizures, recent fall. Technical Comments: The study is technically difficult. Pt was only minimally cooperative. Completed at 1212. Left Ventricle: The left ventricular chamber size is decreased. Moderate concentric left ventricular hypertrophy is observed. Global left ventricular wall motion and contractility are within normal limits. There is normal left ventricular systolic function. The estimated ejection fraction is 55-60%. Abnormal left ventricular diastolic function is observed. The patient was unable to perform a Valsalva maneuver. Left Atrium: The left atrium is moderately dilated. Right Ventricle: The right ventricular cavity size is normal. The right ventricular global systolic function is normal. Right Atrium: The right atrium is not well visualized.but appears at least mildly dilated. Aortic Valve: There is a trace of aortic regurgitation. There is no evidence of aortic stenosis. The highest aortic valve velocity was obtained with the standard probe from the A5C view. A bio-prosthetic aortic valve is present. The bio-prosthetic aortic valve appears to be functioning normally. Mitral Valve: There is mitral annular calcification. There is no evidence of mitral regurgitation. Tricuspid Valve: The tricuspid valve leaflets are normal. There is trace tricuspid regurgitation. Unable to estimate the right ventricular systolic pressure. Pulmonic Valve: The pulmonic valve appears normal. There is trace to mild pulmonic regurgitation. There is no pulmonic stenosis. Pericardium: There is no significant pericardial effusion. Aorta: There is mild dilatation of the ascending aorta. There is no dilatation of the aortic arch. There is moderate dilatation of the aortic root. Pulmonary Artery: The main pulmonary artery appears normal. Venous: The venous system is not well visualized. Conclusions There is normal left ventricular systolic function. The estimated ejection fraction is 55-60%. Global left ventricular wall motion and contractility are within normal limits. The left ventricular chamber size is decreased. Moderate concentric left ventricular hypertrophy is observed. Abnormal left ventricular diastolic function is observed. The left atrium is moderately dilated. The right atrium is not well visualized but appears at least mildly dilated. The bio-prosthetic aortic valve appears to be functioning normally. There is moderate dilatation of the aortic root. There is mild dilatation of the ascending aorta. Since the prior echocardiogram completed 02/25/13, there appears to be little change. Measurements Name Value Normal Range RVIDd (AP) 2D 3.4 cm (0.9 - 2.6) RVDdMajor (2D) 2.8 cm (2.2 - 4.4) IVSd (2D) 1.8 cm (0.6 - 1) LVPWd (2D) 1.6 cm (0.6 - 1) LVIDd (2D) 3.5 cm (3.6 - 5.4) LVIDs (2D) 2.9 cm - LV FS (2D) 18 % (25 - 45) Aortic Annulus 2.3 cm (1.4 - 2.6) Ao root diameter (2D) 4.3 cm (2.1 - 3.5) Ascending Ao 3.8 cm (2.1 - 3.4) Aortic arch 2.8 cm (1.8 - 3.4) LA dimension (AP) 2D 4.6 cm (2.3 - 3.8) Name Value Normal Range LA ESV SP 4CH (A/L) 50 ml - LA ESV SP 2CH (A/L) 45 ml - LA ESV BP (A/L) 49 ml - LA ESV BP (A/L) index 25.55 ml/m2 - LA ESV SP 4CH (MOD) 47 ml - LA ESV SP 2CH (MOD) 42 ml - Name Value Normal Range MV E-wave Vmax 0.6 m/sec - MV deceleration time 270 msec - MV A-wave Vmax 1.1 m/sec - MV E:A ratio 0.57 ratio - LV septal e' Vmax 0.03 m/sec - LV lateral e' Vmax 0.06 m/sec - LV E:e' septal ratio 20 ratio - LV E:e' lateral ratio 10 ratio - Name Value Normal Range AV Vmax 2 m/sec - AV VTI 31.3 cm - AV peak gradient 7.67 mmHg - AV mean gradient 5.21 mmHg - LVOT diameter 2.1 cm - LVOT Vmax 1.1 m/sec - LVOT VTI 20.2 cm - LVOT peak gradient 4.92 mmHg - LVOT mean gradient 2.31 mmHg - MARCUS (continuity Vmax) 1.8 cm2 - MARCUS (continuity VTI) 2.3 cm2 - AR PHT 599 msec - AR peak gradient 60 mmHg - Name Value Normal Range TR peak gradient 26 mmHg - RAP 8 mmHg - Name Value Normal Range PV Vmax 0.4 m/sec - PV peak gradient 0.71 mmHg -
[2017-01-19 13:44] LABS: Hematocrit 43 % (42-52); Hemoglobin 14.4 g/dl (14.0-18.0); Mean Corpuscular HGB Conc 34 g/dl (31-36); Mean Corpuscular Hemoglobin 30 pg (27-31); Mean Corpuscular Volume 90 fL (80-94); Mean Platelet Volume 7 um3 (7.4-10.4); Red Blood Count 4.73 10^6/ul (4.0-5.4); Red Cell Distribution Width 13 % (10.5-15); White Blood Count 11.6 10^3/ul (3.5-10.8)
[2017-01-19] MEDS: Heparin VIAL(*) 5000 UNITS/ML VIAL (FIVE THOUSAND) SUBCUT SCH ×2 (15:23→20:57)
[2017-01-19] MEDS: Tamsulosin CAP* 0.4 MG PO SCH (20:57)
[2017-01-20] MEDS: Heparin VIAL(*) 5000 UNITS/ML VIAL (FIVE THOUSAND) SUBCUT SCH ×3 (06:29→20:58)
[2017-01-20] MEDS: Omeprazole CAP* 20 MG PO SCH (06:29)
[2017-01-20] MEDS: Metoprolol Tartrate TAB* 25 MG PO SCH (08:30)
[2017-01-20] MEDS: Losartan TAB* 25 MG PO SCH ×2 (08:30→20:58)
[2017-01-20] MEDS: Aspirin EC Low Dose* 81 MG TAB.EC PO SCH (08:30)
[2017-01-20] MEDS: ceFUROXime TAB(*) 250 MG PO SCH ×2 (08:30→20:58)
[2017-01-20] MEDS: levETIRAcetam TAB* 500 MG PO SCH ×2 (08:30→20:57)
--- NOTE | 2017-01-20 10:28 | PN ---
Subjective Date of Service: 01/20/17 Interval History: Pt is feeling poorly. He states he feels like he is going to pass out despite lying in bed. He does not tell me if he is in pain. He says he has issues all over. Family History: Unchanged from Admission Social History: Unchanged from Admission Past Medical History: Unchanged from Admission Objective Active Medications: Acetaminophen (Tylenol Tab*) 650 mg PO Q6H PRN PRN Reason: FEVER/PAIN Last Admin: 01/18/17 04:59 Dose: 650 mg Albuterol (Ventolin 2.5 Mg/3 Ml Neb.Carmen*) 2.5 mg INH Q2H PRN PRN Reason: SOB/WHEEZING Aspirin (Aspirin Ec Low Dose*) 81 mg PO DAILY [facility] Last Admin: 01/20/17 08:30 Dose: 81 mg Cefuroxime Axetil (Ceftin Tab(*)) 250 mg PO BID [facility] Stop: 01/23/17 20:59 Last Admin: 01/20/17 08:30 Dose: 250 mg Cyanocobalamin (Vitamin B12 Inj *) 1,000 mcg IM Q30D [facility] Last Admin: 01/18/17 20:45 Dose: 1,000 mcg Docusate Sodium (Colace Cap*) 200 mg PO BID PRN PRN Reason: CONSTIPATION Heparin Sodium (Porcine) (Heparin Vial(*)) 5,000 units SUBCUT Q8HR [facility] Last Admin: 01/20/17 06:29 Dose: 5,000 units Ibuprofen (Motrin Tab*) 400 mg PO Q8H PRN PRN Reason: FEVER/PAIN Last Admin: 01/18/17 02:45 Dose: 400 mg Levetiracetam (Keppra Tab*) 500 mg PO BID [facility] Last Admin: 01/20/17 08:30 Dose: 500 mg Losartan Potassium (Cozaar Tab*) 25 mg PO BID [facility] Last Admin: 01/20/17 08:30 Dose: 25 mg Metoprolol Tartrate (Lopressor Tab*) 25 mg PO DAILY [facility] Last Admin: 01/20/17 08:30 Dose: 25 mg Omeprazole (Prilosec Cap*) 20 mg PO DAILY@0600 [facility] PRN Reason: Protocol Last Admin: 01/20/17 06:29 Dose: 20 mg Ondansetron HCl (Zofran Inj*) 4 mg IV Q6H PRN PRN Reason: NAUSEA Tamsulosin HCl (Flomax Cap*) 0.4 mg PO BEDTIME [facility] Last Admin: 01/19/17 20:57 Dose: 0.4 mg Vital Signs 01/19/17 01/19/17 01/19/17 15:25 21:06 23:29 Temperature 98.2 F 97.6 F Pulse Rate 61 67 Respiratory 15 16 16 Rate Blood Pressure 169/81 177/77 (mmHg) O2 Sat by Pulse 96 95 Oximetry 01/20/17 01/20/17 01/20/17 02:00 03:59 07:22 Temperature 97.5 F Pulse Rate 60 70 64 Respiratory 16 16 Rate Blood Pressure 173/90 148/87 (mmHg) O2 Sat by Pulse 96 95 95 Oximetry 01/20/17 07:47 Temperature Pulse Rate 64 Respiratory 16 Rate Blood Pressure (mmHg) O2 Sat by Pulse 95 Oximetry Oxygen Devices in Use Now: None Appearance: Elderly male lying in bed, awake, NAD Eyes: No Scleral Icterus Ears/Nose/Mouth/Throat: Mucous Membranes Moist Respiratory: Symmetrical Chest Expansion and Respiratory Effort, Clear to Auscultation Cardiovascular: NL Sounds; No Murmurs; No JVD, RRR Abdominal: NL Sounds; No Tenderness; No Distention Extremities: No Clubbing, Cyanosis Skin: No Nodules or Sclerosis, - - + bilateraly black eyes, laceration across bridge of nose Neurological: - - alert, seeming somewhat confused Result Diagrams: 01/19/17 13:25 01/19/17 05:18 Additional Lab and Data: Lab Results 01/17/17 01/17/17 01/17/17 Range/Units 21:56 21:56 21:56 WBC 11.7 H (3.5-10.8) 10^3/ul RBC 4.71 (4.0-5.4) 10^6/ul Hgb 14.3 (14.0-18.0) g/dl Hct 43 (42-52) % MCV 90 (80-94) fL MCH 30 (27-31) pg MCHC 34 (31-36) g/dl RDW 13 (10.5-15) % Plt Count 221 (150-450) 10^3/ul MPV 7 L (7.4-10.4) um3 Neut % (Auto) 76.5 (38-83) % Lymph % (Auto) 12.3 L (25-47) % [place] % (Auto) 10.0 H (1-9) % Eos % (Auto) 0.6 (0-6) % Baso % (Auto) 0.6 (0-2) % Absolute Neuts (auto) 9.0 H (1.5-7.7) 10^3/ul Absolute Lymphs (auto) 1.4 (1.0-4.8) 10^3/ul Absolute Monos (auto) 1.2 H (0-0.8) 10^3/ul Absolute Eos (auto) 0.1 (0-0.6) 10^3/ul Absolute Basos (auto) 0.1 (0-0.2) 10^3/ul Absolute Nucleated RBC 0 10^3/ul Nucleated RBC % 0 INR (Anticoag Therapy) 0.96 (0.89-1.11) Sodium 130 L (133-145) mmol/L Potassium 3.3 L (3.5-5.0) mmol/L Chloride 97 L (101-111) mmol/L Carbon Dioxide 26 (22-32) mmol/L Anion Gap 7 (2-11) mmol/L BUN 19 (6-24) mg/dL Creatinine 0.95 (0.67-1.17) mg/dL Est GFR ( Amer) 96.0 (>60) Est GFR (Non-Af Amer) 74.6 (>60) BUN/Creatinine Ratio 20.0 (8-20) Glucose 105 H (70-100) mg/dL Lactic Acid (0.5-2.0) mmol/L Calcium 8.9 (8.6-10.3) mg/dL Magnesium 2.0 (1.9-2.7) mg/dL Total Bilirubin 0.40 (0.2-1.0) mg/dL AST 12 L (13-39) U/L ALT 8 (7-52) U/L Alkaline Phosphatase 92 (34-104) U/L Troponin I 0.02 (<0.04) ng/mL Total Protein 6.2 L (6.4-8.9) g/dL Albumin 3.7 (3.2-5.2) g/dL Globulin 2.5 (2-4) g/dL Albumin/Globulin Ratio 1.5 (1-3) 05/26/17 Range/Units 21:56 WBC (3.5-10.8) 10^3/ul RBC (4.0-5.4) 10^6/ul Hgb (14.0-18.0) g/dl Hct (42-52) % MCV (80-94) fL MCH (27-31) pg MCHC (31-36) g/dl RDW (10.5-15) % Plt Count (150-450) 10^3/ul MPV (7.4-10.4) um3 Neut % (Auto) (38-83) % Lymph % (Auto) (25-47) % [place] % (Auto) (1-9) % Eos % (Auto) (0-6) % Baso % (Auto) (0-2) % Absolute Neuts (auto) (1.5-7.7) 10^3/ul Absolute Lymphs (auto) (1.0-4.8) 10^3/ul Absolute Monos (auto) (0-0.8) 10^3/ul Absolute Eos (auto) (0-0.6) 10^3/ul Absolute Basos (auto) (0-0.2) 10^3/ul Absolute Nucleated RBC 10^3/ul Nucleated RBC % INR (Anticoag Therapy) (0.89-1.11) Sodium (133-145) mmol/L Potassium (3.5-5.0) mmol/L Chloride (101-111) mmol/L Carbon Dioxide (22-32) mmol/L Anion Gap (2-11) mmol/L BUN (6-24) mg/dL Creatinine (0.67-1.17) mg/dL Est GFR ( Amer) (>60) Est GFR (Non-Af Amer) (>60) BUN/Creatinine Ratio (8-20) Glucose (70-100) mg/dL Lactic Acid 1.1 (0.5-2.0) mmol/L Calcium (8.6-10.3) mg/dL Magnesium (1.9-2.7) mg/dL Total Bilirubin (0.2-1.0) mg/dL AST (13-39) U/L ALT (7-52) U/L Alkaline Phosphatase (34-104) U/L Troponin I (<0.04) ng/mL Total Protein (6.4-8.9) g/dL Albumin (3.2-5.2) g/dL Globulin (2-4) g/dL Albumin/Globulin Ratio (1-3) Assess/Plan/Problems-Billing Mr Jarrett is an 89 year old man with a h/o HTN, seizure disorder, B12 deficiency and bioprosthetic AVR who presented to the ER with c/o recurrent falls in last 2 weeks. - Patient Problems (1) Ataxia Current Visit: Yes Status: Acute Priority: High Code(s): R27.0 - ATAXIA, UNSPECIFIED SNOMED Code(s): 68031748 Comment: The patient has a pacemaker. His generator appears to be MRI compatible. But will need to determine if the pacer leads are compatible. If not compatible he can not get an MRI. Given the holiday MRI is not here today so will try to figure this out tomorrow. Today he is c/o feeling lightheaded. Will check orthostatic VS. Continue treating for UTI though his WBC count has not improved at all. Continue PT-yesterday he was reportedly doing better but he will likely need STR. (2) UTI (urinary tract infection) Current Visit: Yes Status: Acute Comment: UA is abnormal though culture is negative. Given visible improvement in his symptoms after starting the Abx will continue a full course of therapy. (3) Hypertension Current Visit: Yes Status: Acute Code(s): I10 - ESSENTIAL (PRIMARY) HYPERTENSION SNOMED Code(s): 34919441 Comment: BP has fluctuated quite a bit. Continue current regimen and monitor the BP. I do not want to lower his pressure to far in the setting of him c/o lightheadedness. (4) Vitamin B12 deficiency Current Visit: Yes Status: Acute Code(s): E53.8 - DEFICIENCY OF OTHER SPECIFIED B GROUP VITAMINS SNOMED Code(s): 251951500 Comment: Pt recieved IM B12 01/18/17. ? if B12 deficiency has contributed to his falling. (5) Seizure disorder Current Visit: Yes Status: Acute Code(s): G40.909 - EPILEPSY, UNSP, NOT INTRACTABLE, WITHOUT STATUS EPILEPTICUS SNOMED Code(s): 225972441 Comment: Luis Lr. (6) DVT prophylaxis Current Visit: Yes Status: Acute Code(s): MJJ1708 - SNOMED Code(s): 792972622 Comment: SQ heparin (7) DNR (do not resuscitate) Current Visit: Yes Status: Acute Status and Disposition: .
--- NOTE | 2017-01-20 15:35 | CONS ---
NEUROLOGY CONSULTATION: DATE OF CONSULT: 01/20/17 REFERRING PHYSICIAN: Dr. Shields. PRIMARY CARE PROVIDER: Dr. Eisenberg. LOCATION: He is an inpatient, room 405. CHIEF COMPLAINT: Repetitive falls. HISTORY OF PRESENT ILLNESS: Brendon Jarrett is an 89-year-old man who was admitted on 01/17/17 with repetitive falls. He had been declining in terms of gait for at least several weeks and probably longer. I read Dr. Ira Concepcion' s followup note from last fall and he was down to taking walks in the driveway. He had been pretty vigorous in his younger years. Because of decreased walking, repetitive falls, his family got a walker. Tried to get out of bed just prior to admission and fell over the walker and smashed his face as well as the back of his head requiring lisa. According to his son, Hilary Nevarez is present, he has been walking less and less and sleeping more and more. He will lie down 10 times a day. They get him up to walk for about 8 minutes at a time several times a day, but he has been walking less and less. I am not sure of the details, but he had a B12 level and TSH checked several weeks ago and the B12 level was low. I presume this is because of progressive cognitive decline. He was started on citalopram about 3 weeks ago, also I presume because of loss of interest in doing things and more time in bed. His appetite has been poor according to his son. When I asked that if he is depressed, the patient replies "I am 89." He tends to looks straight ahead and does not otherwise interact much. As part of this evaluation this admission, he has had some laboratory studies notable for probable urinary tract infection with 1+ blood, 2+ leukocyte esterase, 2+ white blood cells, 3+ red blood cells. Urine culture was no growth , however. He had a CT of the brain, which I reviewed and which reveals subcortical hypodensities consistent with chronic ischemic disease, but no acute changes or evidence of major infarction. Other laboratory data is notable for his vitamin B12 level of 157 on 01/04/17 and modest hyponatremia at this admission with sodium of 130 when he came in on 01/17/17, still 130 as of yesterday morning. The rest of his electrolytes were unremarkable and TSH was normal as well. PAST MEDICAL HISTORY: Notable for a seizure disorder going back several years. He was on Dilantin for a while and then Keppra. There was an attempt to taper off the Keppra I believe a couple of years ago, but then he had a recurrent seizure and so remains on it. He has a history of a pacemaker. He has a bioprosthetic aortic valve, gastroesophageal reflux. MEDICATIONS: At time of admission consist of: 1. Ramipril 15 mg p.o. daily. 2. Flomax 0.4 mg p.o. at bedtime. 3. Metoprolol 25 mg p.o. daily. 4. Prevacid 15 mg p.o. daily. 5. Hydrochlorothiazide 12.5 mg p.o. daily. 6. He was on Celexa, but that was stopped, I believe right prior to admission. SOCIAL HISTORY: He has quit smoking many decades ago, does not drink alcohol. Lives at home with his . He has had a poor appetite and he has probably been loosing weight, although we they have not weighed him. REVIEW OF SYMPTOMS: He denies chest pain or shortness of breath. He denies headache or double vision. He denies numbness or pain in his legs. No neck pain either. PHYSICAL EXAMINATION: He is a thin elderly gentleman lying in his bed looking mainly straight ahead. He has raccoon eyes from his recent head trauma and still has sutures in place in the occiput midline. He has been afebrile throughout his hospital stay, blood pressure fluctuates, but most recently 137/ 84. Heart rate is in 60s and sounds regular. He has a grade 2/6 early systolic murmur second right interspace. Neck is supple. There are no cervical bruits. Lungs are clear anterolaterally. Neurologically, pupils are small and reacting from 2.5 to 2 mm. Fundi reveals several wiring and sharp disks bilaterally. Eye movements are full without nystagmus and visual wiley are full to confrontation. There is no ptosis. Facial musculature is symmetric. Facial sensation to light touch is symmetric. Hearing is a little bit depressed bilaterally. Palate and tongue appear normal and speech is clear. There is no dysarthria. Motor exam reveals some paratonia, but actually pretty good strength proximally and distally in upper and lower extremities. Sensory exam is notable for loss of vibration and proprioception in the feet. Reflexes are hypoactive, but present to the knees, absent at the ankles. Plantar responses are flexor bilaterally. I did not attempt to ambulate him. He is alert and a poor historian. He fills in historical details, but does not clearly have good recollection of recent history. He has a flat affect. He is pleasant and cooperative; however. Language is fluent. He is oriented to person and place, but not time. DIAGNOSTIC STUDIES/LAB DATA: Laboratory data was reviewed as above. 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 In addition, he may have had a urinary tract infection that has been addressed. He also appears depressed to me and his primary care provider apparently raises the possibility as well as he was treated with Celexa. Recommend getting a CT angiogram of his head and neck to look for evidence of vertebral basilar insufficiency. I should note he had a study couple of years ago and that was negative at that point in time. If he is going to have an MRI scan to look for an acute cerebrovascular and that is fine, but I do not think it is that urgent as his history does not really suggest a cerebrovascular event to me. I would recommend consideration of a psychiatry consultation as well. He may be depressed, he may benefit from pharmacotherapy, but I think it would be a good idea to have a Psychiatry weigh in on that. I will discuss my impression with Dr. Shields. CC: Dr. Concepcion* [id number]/[facility] #: [id number] VISHAL
[2017-01-20] MEDS: Ibuprofen TAB* 400 MG PO PRN (20:57)
[2017-01-20] MEDS: Tamsulosin CAP* 0.4 MG PO SCH (20:58)
[2017-01-21] MEDS: Omeprazole CAP* 20 MG PO SCH (05:43)
[2017-01-21] MEDS: Heparin VIAL(*) 5000 UNITS/ML VIAL (FIVE THOUSAND) SUBCUT SCH ×3 (05:43→23:49)
[2017-01-21] MEDS: ceFUROXime TAB(*) 250 MG PO SCH ×2 (09:01→23:49)
[2017-01-21] MEDS: Metoprolol Tartrate TAB* 25 MG PO SCH (09:01)
[2017-01-21] MEDS: levETIRAcetam TAB* 500 MG PO SCH ×2 (09:01→23:49)
[2017-01-21] MEDS: Aspirin EC Low Dose* 81 MG TAB.EC PO SCH (09:01)
--- NOTE | 2017-01-21 09:21 | PN ---
Subjective Date of Service: 01/21/17 Interval History: CC: falls Pt is feeling well. He denies any pain. He denies SOB or CP. He denies any dizziness/lightheadedness. He states he has been having normal BMs. He states he does not remember how he did going from bed to chair this AM. When asked if he needs anything else he states "yes, five minutes" and points to his food. Family History: Unchanged from Admission Social History: Unchanged from Admission Past Medical History: Unchanged from Admission Objective Active Medications: Acetaminophen (Tylenol Tab*) 650 mg PO Q6H PRN PRN Reason: FEVER/PAIN Last Admin: 01/18/17 04:59 Dose: 650 mg Albuterol (Ventolin 2.5 Mg/3 Ml Neb.Carmen*) 2.5 mg INH Q2H PRN PRN Reason: SOB/WHEEZING Aspirin (Aspirin Ec Low Dose*) 81 mg PO DAILY [facility] Last Admin: 01/21/17 09:01 Dose: 81 mg Cefuroxime Axetil (Ceftin Tab(*)) 250 mg PO BID [facility] Stop: 01/23/17 20:59 Last Admin: 01/21/17 09:01 Dose: 250 mg Cyanocobalamin (Vitamin B12 Inj *) 1,000 mcg IM Q30D [facility] Last Admin: 01/18/17 20:45 Dose: 1,000 mcg Docusate Sodium (Colace Cap*) 200 mg PO BID PRN PRN Reason: CONSTIPATION Heparin Sodium (Porcine) (Heparin Vial(*)) 5,000 units SUBCUT Q8HR [facility] Last Admin: 01/21/17 05:43 Dose: 5,000 units Ibuprofen (Motrin Tab*) 400 mg PO Q8H PRN PRN Reason: FEVER/PAIN Last Admin: 01/20/17 20:57 Dose: 400 mg Levetiracetam (Keppra Tab*) 500 mg PO BID [facility] Last Admin: 01/21/17 09:01 Dose: 500 mg Losartan Potassium (Cozaar Tab*) 25 mg PO BEDTIME [facility] Losartan Potassium (Cozaar Tab*) 50 mg PO DAILY [facility] Metoprolol Tartrate (Lopressor Tab*) 25 mg PO DAILY [facility] Last Admin: 01/21/17 09:01 Dose: 25 mg Omeprazole (Prilosec Cap*) 20 mg PO DAILY@0600 [facility] PRN Reason: Protocol Last Admin: 01/21/17 05:43 Dose: 20 mg Ondansetron HCl (Zofran Inj*) 4 mg IV Q6H PRN PRN Reason: NAUSEA Tamsulosin HCl (Flomax Cap*) 0.4 mg PO BEDTIME [facility] Last Admin: 01/20/17 20:58 Dose: 0.4 mg Vital Signs 01/20/17 01/20/17 01/20/17 09:39 14:09 14:11 Temperature 97.5 F Pulse Rate 66 72 87 Respiratory 18 Rate Blood Pressure 137/84 153/107 140/108 (mmHg) O2 Sat by Pulse 96 95 95 Oximetry 01/20/17 01/20/17 01/21/17 20:00 23:28 03:11 Temperature 98.3 F Pulse Rate 63 74 Respiratory 20 16 16 Rate Blood Pressure 158/114 (mmHg) O2 Sat by Pulse 97 92 Oximetry 01/21/17 01/21/17 07:20 09:07 Temperature 96.3 F Pulse Rate 77 77 Respiratory 15 16 Rate Blood Pressure 138/94 (mmHg) O2 Sat by Pulse 94 93 Oximetry Oxygen Devices in Use Now: None Appearance: Elderly male sitting up in a chair in the [place] eating, NAD Eyes: No Scleral Icterus Ears/Nose/Mouth/Throat: Mucous Membranes Moist Respiratory: Symmetrical Chest Expansion and Respiratory Effort, Clear to Auscultation Cardiovascular: NL Sounds; No Murmurs; No JVD, - - irregular though paced on EKG Abdominal: NL Sounds; No Tenderness; No Distention Extremities: No Clubbing, Cyanosis Skin: No Rash or Ulcers, No Nodules or Sclerosis, - - + bruising around both eyes Neurological: - - alert, oriented to place, more conversant today Result Diagrams: 01/19/17 13:25 01/19/17 05:18 Additional Lab and Data: Lab Results 01/17/17 01/17/17 01/17/17 Range/Units 21:56 21:56 21:56 WBC 11.7 H (3.5-10.8) 10^3/ul RBC 4.71 (4.0-5.4) 10^6/ul Hgb 14.3 (14.0-18.0) g/dl Hct 43 (42-52) % MCV 90 (80-94) fL MCH 30 (27-31) pg MCHC 34 (31-36) g/dl RDW 13 (10.5-15) % Plt Count 221 (150-450) 10^3/ul MPV 7 L (7.4-10.4) um3 Neut % (Auto) 76.5 (38-83) % Lymph % (Auto) 12.3 L (25-47) % [place] % (Auto) 10.0 H (1-9) % Eos % (Auto) 0.6 (0-6) % Baso % (Auto) 0.6 (0-2) % Absolute Neuts (auto) 9.0 H (1.5-7.7) 10^3/ul Absolute Lymphs (auto) 1.4 (1.0-4.8) 10^3/ul Absolute Monos (auto) 1.2 H (0-0.8) 10^3/ul Absolute Eos (auto) 0.1 (0-0.6) 10^3/ul Absolute Basos (auto) 0.1 (0-0.2) 10^3/ul Absolute Nucleated RBC 0 10^3/ul Nucleated RBC % 0 INR (Anticoag Therapy) 0.96 (0.89-1.11) Sodium 130 L (133-145) mmol/L Potassium 3.3 L (3.5-5.0) mmol/L Chloride 97 L (101-111) mmol/L Carbon Dioxide 26 (22-32) mmol/L Anion Gap 7 (2-11) mmol/L BUN 19 (6-24) mg/dL Creatinine 0.95 (0.67-1.17) mg/dL Est GFR ( Amer) 96.0 (>60) Est GFR (Non-Af Amer) 74.6 (>60) BUN/Creatinine Ratio 20.0 (8-20) Glucose 105 H (70-100) mg/dL Lactic Acid (0.5-2.0) mmol/L Calcium 8.9 (8.6-10.3) mg/dL Magnesium 2.0 (1.9-2.7) mg/dL Total Bilirubin 0.40 (0.2-1.0) mg/dL AST 12 L (13-39) U/L ALT 8 (7-52) U/L Alkaline Phosphatase 92 (34-104) U/L Troponin I 0.02 (<0.04) ng/mL Total Protein 6.2 L (6.4-8.9) g/dL Albumin 3.7 (3.2-5.2) g/dL Globulin 2.5 (2-4) g/dL Albumin/Globulin Ratio 1.5 (1-3) // Range/Units 21:56 WBC (3.5-10.8) 10^3/ul RBC (4.0-5.4) 10^6/ul Hgb (14.0-18.0) g/dl Hct (42-52) % MCV (80-94) fL MCH (27-31) pg MCHC (31-36) g/dl RDW (10.5-15) % Plt Count (150-450) 10^3/ul MPV (7.4-10.4) um3 Neut % (Auto) (38-83) % Lymph % (Auto) (25-47) % [place] % (Auto) (1-9) % Eos % (Auto) (0-6) % Baso % (Auto) (0-2) % Absolute Neuts (auto) (1.5-7.7) 10^3/ul Absolute Lymphs (auto) (1.0-4.8) 10^3/ul Absolute Monos (auto) (0-0.8) 10^3/ul Absolute Eos (auto) (0-0.6) 10^3/ul Absolute Basos (auto) (0-0.2) 10^3/ul Absolute Nucleated RBC 10^3/ul Nucleated RBC % INR (Anticoag Therapy) (0.89-1.11) Sodium (133-145) mmol/L Potassium (3.5-5.0) mmol/L Chloride (101-111) mmol/L Carbon Dioxide (22-32) mmol/L Anion Gap (2-11) mmol/L BUN (6-24) mg/dL Creatinine (0.67-1.17) mg/dL Est GFR ( Amer) (>60) Est GFR (Non-Af Amer) (>60) BUN/Creatinine Ratio (8-20) Glucose (70-100) mg/dL Lactic Acid 1.1 (0.5-2.0) mmol/L Calcium (8.6-10.3) mg/dL Magnesium (1.9-2.7) mg/dL Total Bilirubin (0.2-1.0) mg/dL AST (13-39) U/L ALT (7-52) U/L Alkaline Phosphatase (34-104) U/L Troponin I (<0.04) ng/mL Total Protein (6.4-8.9) g/dL Albumin (3.2-5.2) g/dL Globulin (2-4) g/dL Albumin/Globulin Ratio (1-3) Assess/Plan/Problems-Billing Mr Jarrett is an 89 year old man with a h/o HTN, seizure disorder, B12 deficiency and bioprosthetic AVR who presented to the ER with c/o recurrent falls in last 2 weeks. - Patient Problems (1) Ataxia Current Visit: Yes Status: Acute Priority: High Code(s): R27.0 - ATAXIA, UNSPECIFIED SNOMED Code(s): 03439777 Comment: The patient was seen by Dr. Melgar yesterday who felt that likely his issues are secondary to chronic gradual decline from vascular cognitive impairment and vascular gait instability with superimposed B12 deficiency and possible UTI. It was recommended to get a CTA of the head/neck to eval for vertebral basilar insufficency. MRI I do not think can be obtained in the hospital due to the process required to find out if his pacer/leads are MRI compatible and additionally it appears his leads were placed in 1999 so I doubt they are MRI compatible. He appears brighter today. Will have PT reassess. I believe he should have STR to help work on strength, balance and endurance. (2) UTI (urinary tract infection) Current Visit: Yes Status: Acute Comment: Continue ceftin to complete 5 days of therapy. (3) Hypertension Current Visit: Yes Status: Acute Code(s): I10 - ESSENTIAL (PRIMARY) HYPERTENSION SNOMED Code(s): 73524652 Comment: BP remains elevated today. His lightheadedness is gone. Will increase AM losartan to 50mg and keep PM dose 25mg. Monitor the BP. (4) Vitamin B12 deficiency Current Visit: Yes Status: Acute Code(s): E53.8 - DEFICIENCY OF OTHER SPECIFIED B GROUP VITAMINS SNOMED Code(s): 046275065 Comment: Pt recieved IM B12 01/18/17. ? if B12 deficiency has contributed to his falling. (5) Seizure disorder Current Visit: Yes Status: Acute Code(s): G40.909 - EPILEPSY, UNSP, NOT INTRACTABLE, WITHOUT STATUS EPILEPTICUS SNOMED Code(s): 496070170 Comment: Luis Lr. (6) DVT prophylaxis Current Visit: Yes Status: Acute Code(s): FPY2147 - SNOMED Code(s): 057737895 Comment: SQ heparin (7) DNR (do not resuscitate) Current Visit: Yes Status: Acute Status and Disposition: .
[2017-01-21] MEDS: Losartan TAB* 25 MG PO SCH ×2 (09:53→23:49)
--- NOTE | 2017-01-21 10:35 | PN ---
Progress Note - Progress Note Note: I just got a return call from MRI and the patient's pacer leads are not MRI compatible.
[2017-01-21] MEDS ORDERED: Iohexol 350* (CONTRAST) 500 ML MDV IV ONE (13:37)
--- NOTE | 2017-01-21 14:06 | RAD ---
HISTORY: Vertebrobasilar insufficiency COMPARISONS: February 24, 2013 TECHNIQUE: Multiple contiguous axial CT scans were obtained of the head and neck After the administration of nonionic intravenous contrast timed to the systemic arterial phase of contrast enhancement. Coronal and sagittal multiplanar reformations are submitted for review. Multiple 3-D maximum intensity projection reconstructions are also submitted for review. FINDINGS: CTA NECK: AORTIC ARCH: There is calcific atherosclerotic disease of the aortic arch, without ostial or proximal stenosis of the cephalic great vessels. There is a bovine configuration to the aortic arch with the left common carotid artery originating from the brachiocephalic trunk. The vessels are tortuous. RIGHT VERTEBRAL ARTERY: The right vertebral artery terminates in the right posterior inferior cerebellar artery LEFT VERTEBRAL ARTERY: The left vertebral artery is patent along its course, without stenosis. DOMINANCE: The left vertebral artery is dominant. RIGHT COMMON CAROTID ARTERY: The right common carotid artery is patent. The right carotid bifurcation occurs at C5 RIGHT INTERNAL CAROTID ARTERY: There is minimal atheromatous disease of the right carotid bifurcation, without right internal carotid artery stenosis by NASCET criteria. The right internal carotid artery is tortuous. RIGHT EXTERNAL CAROTID ARTERY: The right external carotid artery is unremarkable. LEFT COMMON CAROTID ARTERY: The left common carotid artery is patent. The left carotid bifurcation occurs at C4 LEFT INTERNAL CAROTID ARTERY: There is atheromatous disease of the left carotid bifurcation, without left internal carotid artery stenosis by NASCET criteria. Left internal carotid artery structures LEFT EXTERNAL CAROTID ARTERY: The left external carotid artery is unremarkable. VENOUS CIRCULATION: The venous system is unremarkable. SALIVARY GLANDS: The parotid glands, submandibular glands, sublingual glands are normal. NASAL CAVITY/NASOPHARYNX: The nasal cavity and nasopharynx are normal. ORAL CAVITY/OROPHARYNX: The oral cavity is obscured by streak artifact from dental amalgam. The visualized oral cavity and oropharynx are unremarkable. LARYNGEAL APPARATUS/HYPOPHARYNX: The laryngeal apparatus and hypopharynx are normal. UPPER AIRWAY/UPPER ESOPHAGUS: The visualized upper airway and esophagus are normal. LUNG APICES: The lung apices are clear. THYROID GLAND: The thyroid gland is normal. LYMPH NODES: There is no lymphadenopathy by size criteria. BONES AND SOFT TISSUES: No bone or soft tissue abnormalities are noted. CTA HEAD: INTRACRANIAL CIRCULATION: There is no aneurysm, vascular malformation, occlusion, or stenosis of the visualized intracranial circulation. The anterior communicating artery complex is clear. The posterior communicating arteries are diminutive, if present. As noted above, the right vertebral artery terminates in the right posterior inferior cerebellar artery VENOUS CIRCULATION: The venous system is unremarkable. PERFUSION: There is no obvious parenchymal perfusion deficit. HEMORRHAGE/INFARCT: There is no hemorrhage or acute infarct. MASSES/SHIFT: There is no mass or shift. EXTRA-AXIAL SPACES: There are no extra-axial fluid collections. SULCI AND VENTRICLES: The sulci and ventricles are normal in size and position for the patient's stated age. CEREBRUM: There are no focal parenchymal abnormalities. BRAINSTEM: There are no focal parenchymal abnormalities. CEREBELLUM: There are no focal parenchymal abnormalities. PARANASAL SINUSES: The paranasal sinuses are clear. ORBITS: The orbits are unremarkable. BONES AND SOFT TISSUE: No bone or soft tissue abnormalities are noted. OTHER: There is no abnormal enhancement. IMPRESSION: 1. ATHEROSCLEROSIS. 2. NO INTERNAL CAROTID ARTERY STENOSIS BY NASCET CRITERIA. 3. NO ANEURYSM, VASCULAR MALFORMATION, OCCLUSION, OR STENOSIS OF THE VISUALIZED INTRACRANIAL CIRCULATION. THE RIGHT VERTEBRAL ARTERY TERMINATES IN THE RIGHT POSTERIOR INFERIOR CEREBELLAR ARTERY CPT II Codes: 3100F
[2017-01-21] MEDS: Tamsulosin CAP* 0.4 MG PO SCH (23:49)
[2017-01-21] MEDS: Acetaminophen TAB* 325 MG PO PRN (23:49)
[2017-01-22] MEDS: Heparin VIAL(*) 5000 UNITS/ML VIAL (FIVE THOUSAND) SUBCUT SCH ×3 (05:27→21:43)
[2017-01-22] MEDS: Omeprazole CAP* 20 MG PO SCH (05:28)
[2017-01-22 06:10] LABS: Hematocrit 41 % (42-52); Hemoglobin 14.3 g/dl (14.0-18.0); Mean Corpuscular HGB Conc 35 g/dl (31-36); Mean Corpuscular Hemoglobin 31 pg (27-31); Mean Corpuscular Volume 89 fL (80-94); Mean Platelet Volume 7 um3 (7.4-10.4); Red Cell Distribution Width 13 % (10.5-15); White Blood Count 9.9 10^3/ul (3.5-10.8)
[2017-01-22 06:23] LABS: BUN/Creatinine Ratio 22.6 (8-20); EGFR African American 110.6 (>60); Potassium 3.4 mmol/L (3.5-5.0)
[2017-01-22] MEDS: Albuterol 2.5 MG/3 ML NEB.SOL* (0.083%) INH PRN (08:19)
[2017-01-22] MEDS: Losartan TAB* 25 MG PO SCH ×2 (08:25→21:33)
[2017-01-22] MEDS: Ibuprofen TAB* 400 MG PO PRN ×2 (08:25→20:30)
[2017-01-22] MEDS: ceFUROXime TAB(*) 250 MG PO SCH ×2 (08:25→21:32)
[2017-01-22] MEDS: Metoprolol Tartrate TAB* 25 MG PO SCH (08:28)
[2017-01-22] MEDS: Aspirin EC Low Dose* 81 MG TAB.EC PO SCH (08:28)
[2017-01-22] MEDS: levETIRAcetam TAB* 500 MG PO SCH ×2 (08:28→21:33)
[2017-01-22] MEDS ORDERED: Potassium Chloride LIQUID* 20 MEQ PACKET PO ONE (10:46)
--- NOTE | 2017-01-22 14:21 | PN ---
Subjective Date of Service: 01/22/17 Interval History: CC: falls When asked how the patient feels he states "89." He denies any pain at this time. He denies SOB that was present earlier this AM. No dizziness at this time. His son is in the room and states that he will frequently have complaints of dizziness or SOB. Family History: Unchanged from Admission Social History: Unchanged from Admission Past Medical History: Unchanged from Admission Objective Active Medications: Acetaminophen (Tylenol Tab*) 650 mg PO Q6H PRN PRN Reason: FEVER/PAIN Last Admin: 01/21/17 23:49 Dose: 650 mg Albuterol (Ventolin 2.5 Mg/3 Ml Neb.Carmen*) 2.5 mg INH Q2H PRN PRN Reason: SOB/WHEEZING Last Admin: 01/22/17 08:19 Dose: 2.5 mg Aspirin (Aspirin Ec Low Dose*) 81 mg PO DAILY [facility] Last Admin: 01/22/17 08:28 Dose: 81 mg Cefuroxime Axetil (Ceftin Tab(*)) 250 mg PO BID [facility] Stop: 01/23/17 20:59 Last Admin: 01/22/17 08:25 Dose: 250 mg Cyanocobalamin (Vitamin B12 Inj *) 1,000 mcg IM Q30D [facility] Last Admin: 01/18/17 20:45 Dose: 1,000 mcg Docusate Sodium (Colace Cap*) 200 mg PO BID PRN PRN Reason: CONSTIPATION Heparin Sodium (Porcine) (Heparin Vial(*)) 5,000 units SUBCUT Q8HR [facility] Last Admin: 01/22/17 13:18 Dose: 5,000 units Ibuprofen (Motrin Tab*) 400 mg PO Q8H PRN PRN Reason: FEVER/PAIN Last Admin: 01/22/17 08:25 Dose: 400 mg Levetiracetam (Keppra Tab*) 500 mg PO BID [facility] Last Admin: 01/22/17 08:28 Dose: 500 mg Losartan Potassium (Cozaar Tab*) 25 mg PO BEDTIME [facility] Last Admin: 01/21/17 23:49 Dose: 25 mg Losartan Potassium (Cozaar Tab*) 50 mg PO DAILY [facility] Last Admin: 01/22/17 08:25 Dose: 50 mg Metoprolol Tartrate (Lopressor Tab*) 25 mg PO DAILY [facility] Last Admin: 01/22/17 08:28 Dose: 25 mg Omeprazole (Prilosec Cap*) 20 mg PO DAILY@0600 [facility] PRN Reason: Protocol Last Admin: 01/22/17 05:28 Dose: 20 mg Ondansetron HCl (Zofran Inj*) 4 mg IV Q6H PRN PRN Reason: NAUSEA Tamsulosin HCl (Flomax Cap*) 0.4 mg PO BEDTIME [facility] Last Admin: 01/21/17 23:49 Dose: 0.4 mg Vital Signs 01/21/17 01/21/17 01/21/17 15:53 19:32 23:50 Temperature 97.4 F 97.4 F Pulse Rate 94 98 Respiratory 24 28 24 Rate Blood Pressure 143/85 138/97 (mmHg) O2 Sat by Pulse 96 93 Oximetry 01/21/17 01/22/17 01/22/17 23:52 01:41 07:36 Temperature 97.5 F 97.4 F Pulse Rate 66 180 Respiratory 24 17 18 Rate Blood Pressure 189/82 139/72 (mmHg) O2 Sat by Pulse 94 92 Oximetry 01/22/17 01/22/17 01/22/17 07:47 08:00 08:16 Temperature Pulse Rate 80 72 Respiratory 32 32 Rate Blood Pressure (mmHg) O2 Sat by Pulse 94 Oximetry Oxygen Devices in Use Now: None Appearance: Elderly male sitting up in a chair eating lunch, NAD Eyes: No Scleral Icterus Ears/Nose/Mouth/Throat: Mucous Membranes Moist Respiratory: Symmetrical Chest Expansion and Respiratory Effort, Clear to Auscultation Cardiovascular: NL Sounds; No Murmurs; No JVD, RRR, No Edema Abdominal: NL Sounds; No Tenderness; No Distention Extremities: No Clubbing, Cyanosis Skin: No Nodules or Sclerosis, - - less bruising around eyes Neurological: - - A&O to situation and place Result Diagrams: 01/22/17 05:49 01/22/17 05:49 Additional Lab and Data: Lab Results 01/17/17 01/17/17 01/17/17 Range/Units 21:56 21:56 21:56 WBC 11.7 H (3.5-10.8) 10^3/ul RBC 4.71 (4.0-5.4) 10^6/ul Hgb 14.3 (14.0-18.0) g/dl Hct 43 (42-52) % MCV 90 (80-94) fL MCH 30 (27-31) pg MCHC 34 (31-36) g/dl RDW 13 (10.5-15) % Plt Count 221 (150-450) 10^3/ul MPV 7 L (7.4-10.4) um3 Neut % (Auto) 76.5 (38-83) % Lymph % (Auto) 12.3 L (25-47) % Hale % (Auto) 10.0 H (1-9) % Eos % (Auto) 0.6 (0-6) % Baso % (Auto) 0.6 (0-2) % Absolute Neuts (auto) 9.0 H (1.5-7.7) 10^3/ul Absolute Lymphs (auto) 1.4 (1.0-4.8) 10^3/ul Absolute Monos (auto) 1.2 H (0-0.8) 10^3/ul Absolute Eos (auto) 0.1 (0-0.6) 10^3/ul Absolute Basos (auto) 0.1 (0-0.2) 10^3/ul Absolute Nucleated RBC 0 10^3/ul Nucleated RBC % 0 INR (Anticoag Therapy) 0.96 (0.89-1.11) Sodium 130 L (133-145) mmol/L Potassium 3.3 L (3.5-5.0) mmol/L Chloride 97 L (101-111) mmol/L Carbon Dioxide 26 (22-32) mmol/L Anion Gap 7 (2-11) mmol/L BUN 19 (6-24) mg/dL Creatinine 0.95 (0.67-1.17) mg/dL Est GFR ( Amer) 96.0 (>60) Est GFR (Non-Af Amer) 74.6 (>60) BUN/Creatinine Ratio 20.0 (8-20) Glucose 105 H (70-100) mg/dL Lactic Acid (0.5-2.0) mmol/L Calcium 8.9 (8.6-10.3) mg/dL Magnesium 2.0 (1.9-2.7) mg/dL Total Bilirubin 0.40 (0.2-1.0) mg/dL AST 12 L (13-39) U/L ALT 8 (7-52) U/L Alkaline Phosphatase 92 (34-104) U/L Troponin I 0.02 (<0.04) ng/mL Total Protein 6.2 L (6.4-8.9) g/dL Albumin 3.7 (3.2-5.2) g/dL Globulin 2.5 (2-4) g/dL Albumin/Globulin Ratio 1.5 (1-3) 05//17 Range/Units 21:56 WBC (3.5-10.8) 10^3/ul RBC (4.0-5.4) 10^6/ul Hgb (14.0-18.0) g/dl Hct (42-52) % MCV (80-94) fL MCH (27-31) pg MCHC (31-36) g/dl RDW (10.5-15) % Plt Count (150-450) 10^3/ul MPV (7.4-10.4) um3 Neut % (Auto) (38-83) % Lymph % (Auto) (25-47) % Hale % (Auto) (1-9) % Eos % (Auto) (0-6) % Baso % (Auto) (0-2) % Absolute Neuts (auto) (1.5-7.7) 10^3/ul Absolute Lymphs (auto) (1.0-4.8) 10^3/ul Absolute Monos (auto) (0-0.8) 10^3/ul Absolute Eos (auto) (0-0.6) 10^3/ul Absolute Basos (auto) (0-0.2) 10^3/ul Absolute Nucleated RBC 10^3/ul Nucleated RBC % INR (Anticoag Therapy) (0.89-1.11) Sodium (133-145) mmol/L Potassium (3.5-5.0) mmol/L Chloride (101-111) mmol/L Carbon Dioxide (22-32) mmol/L Anion Gap (2-11) mmol/L BUN (6-24) mg/dL Creatinine (0.67-1.17) mg/dL Est GFR ( Amer) (>60) Est GFR (Non-Af Amer) (>60) BUN/Creatinine Ratio (8-20) Glucose (70-100) mg/dL Lactic Acid 1.1 (0.5-2.0) mmol/L Calcium (8.6-10.3) mg/dL Magnesium (1.9-2.7) mg/dL Total Bilirubin (0.2-1.0) mg/dL AST (13-39) U/L ALT (7-52) U/L Alkaline Phosphatase (34-104) U/L Troponin I (<0.04) ng/mL Total Protein (6.4-8.9) g/dL Albumin (3.2-5.2) g/dL Globulin (2-4) g/dL Albumin/Globulin Ratio (1-3) Assess/Plan/Problems-Billing Mr Jarrett is an 89 year old man with a h/o HTN, seizure disorder, B12 deficiency and bioprosthetic AVR who presented to the ER with c/o recurrent falls in last 2 weeks. - Patient Problems (1) Ataxia Current Visit: Yes Status: Acute Code(s): R27.0 - ATAXIA, UNSPECIFIED SNOMED Code(s): 87717591 Comment: The patient has been walking better with PT over the last couple days but still needs to likley go to [facility]. Continue B12 injections monthly. Complete treatment for possible UTI as cause of more sudden decompensation a couple weeks ago. RU is looking at the patient for admission. (2) UTI (urinary tract infection) Current Visit: Yes Status: Acute Comment: Continue ceftin to complete 5 days of therapy. Done 01/23/17 at 2100. (3) Hypertension Current Visit: Yes Status: Acute Code(s): I10 - ESSENTIAL (PRIMARY) HYPERTENSION SNOMED Code(s): 54751269 Comment: BP in general is better today. Continue to monitor. (4) Vitamin B12 deficiency Current Visit: Yes Status: Acute Code(s): E53.8 - DEFICIENCY OF OTHER SPECIFIED B GROUP VITAMINS SNOMED Code(s): 920673946 Comment: Pt recieved IM B12 01/18/17. (5) Seizure disorder Current Visit: Yes Status: Acute Code(s): G40.909 - EPILEPSY, UNSP, NOT INTRACTABLE, WITHOUT STATUS EPILEPTICUS SNOMED Code(s): 505597603 Comment: Luis Lr. (6) DVT prophylaxis Current Visit: Yes Status: Acute Code(s): GRB4217 - SNOMED Code(s): 549787991 Comment: SQ heparin (7) DNR (do not resuscitate) Current Visit: Yes Status: Acute Status and Disposition: .
[2017-01-22] MEDS: Tamsulosin CAP* 0.4 MG PO SCH (21:33)
[2017-01-22] MEDS: Mirtazapine TAB* 15 MG PO SCH (21:33)
[2017-01-23] MEDS ORDERED: hydrALAZINE IV* 20 MG/ML VIAL IV PRN (03:24)
[2017-01-23] MEDS: Albuterol 2.5 MG/3 ML NEB.SOL* (0.083%) INH PRN (04:55)
[2017-01-23] MEDS: Omeprazole CAP* 20 MG PO SCH (05:56)
[2017-01-23] MEDS: Heparin VIAL(*) 5000 UNITS/ML VIAL (FIVE THOUSAND) SUBCUT SCH ×3 (06:00→20:15)
[2017-01-23] MEDS: Ibuprofen TAB* 400 MG PO PRN (06:29)
[2017-01-23] MEDS ORDERED: Acetaminophen ADULT LIQ* 650 MG/20.3 ML UDC PO PRN (09:07)
--- NOTE | 2017-01-23 09:37 | PN ---
Subjective Date of Service: 01/23/17 Interval History: Pt is feeling lousy. He states he has an odd sensation in his throat. He states when he swallows it hurts and there is a funny taste. Last night the patient was saying that he wanted to and that he wanted to poison brought to him. This am when I asked if he needed anything he asked me to bring him poison. Family History: Unchanged from Admission Social History: Unchanged from Admission Past Medical History: Unchanged from Admission Objective Active Medications: Acetaminophen (Tylenol Adult Liq*) 650 mg PO Q6H PRN PRN Reason: FEVER/PAIN Albuterol (Ventolin 2.5 Mg/3 Ml Neb.Carmen*) 2.5 mg INH Q2H PRN PRN Reason: SOB/WHEEZING Last Admin: 01/23/17 04:55 Dose: 2.5 mg Aspirin (Aspirin Ec Low Dose*) 81 mg PO DAILY [facility] Last Admin: 01/22/17 08:28 Dose: 81 mg Cefuroxime Axetil (Ceftin Tab(*)) 250 mg PO BID [facility] Stop: 01/23/17 20:59 Last Admin: 01/22/17 21:32 Dose: 250 mg Cyanocobalamin (Vitamin B12 Inj *) 1,000 mcg IM Q30D [facility] Last Admin: 01/18/17 20:45 Dose: 1,000 mcg Docusate Sodium (Colace Cap*) 200 mg PO BID PRN PRN Reason: CONSTIPATION Heparin Sodium (Porcine) (Heparin Vial(*)) 5,000 units SUBCUT Q8HR [facility] Last Admin: 01/23/17 06:00 Dose: 5,000 units Hydralazine HCl (Apresoline Iv*) 10 mg IV Q4H PRN PRN Reason: Systolic >170 Last Admin: 01/23/17 03:49 Dose: 10 mg Ibuprofen (Motrin Tab*) 400 mg PO Q8H PRN PRN Reason: FEVER/PAIN Last Admin: 01/23/17 06:29 Dose: 400 mg Levetiracetam (Keppra Liq*) 500 mg PO BID [facility] Losartan Potassium (Cozaar Tab*) 25 mg PO BEDTIME [facility] Last Admin: 01/22/17 21:33 Dose: 25 mg Losartan Potassium (Cozaar Tab*) 50 mg PO DAILY [facility] Last Admin: 01/22/17 08:25 Dose: 50 mg Metoprolol Tartrate (Lopressor Tab*) 25 mg PO DAILY [facility] Last Admin: 01/22/17 08:28 Dose: 25 mg Mirtazapine (Remeron Tab*) 7.5 mg PO BEDTIME [facility] Last Admin: 01/22/17 21:33 Dose: 7.5 mg Omeprazole (Prilosec Cap*) 20 mg PO DAILY@0600 [facility] PRN Reason: Protocol Last Admin: 01/23/17 05:56 Dose: 20 mg Ondansetron HCl (Zofran Inj*) 4 mg IV Q6H PRN PRN Reason: NAUSEA Tamsulosin HCl (Flomax Cap*) 0.4 mg PO BEDTIME [facility] Last Admin: 01/22/17 21:33 Dose: 0.4 mg Vital Signs 01/22/17 01/22/17 01/22/17 15:30 19:33 23:38 Temperature 97.5 F 97.5 F 97.4 F Pulse Rate 73 79 77 Respiratory 17 17 20 Rate Blood Pressure 134/77 145/75 155/64 (mmHg) O2 Sat by Pulse 97 96 97 Oximetry 01/23/17 01/23/17 01/23/17 02:17 03:22 04:24 Temperature 97.8 F Pulse Rate 72 36 Respiratory 20 20 18 Rate Blood Pressure 187/79 (mmHg) O2 Sat by Pulse 94 97 Oximetry 01/23/17 01/23/17 04:56 07:43 Temperature 97.3 F Pulse Rate 70 63 Respiratory 20 16 Rate Blood Pressure 148/54 (mmHg) O2 Sat by Pulse 96 94 Oximetry Oxygen Devices in Use Now: None Appearance: Elderly male sitting up in bed, sleeping, awakens to voice, but remains sleepy, NAD Eyes: No Scleral Icterus Ears/Nose/Mouth/Throat: Mucous Membranes Moist Respiratory: Symmetrical Chest Expansion and Respiratory Effort, Clear to Auscultation Cardiovascular: NL Sounds; No Murmurs; No JVD, RRR, No Edema Abdominal: NL Sounds; No Tenderness; No Distention Extremities: No Clubbing, Cyanosis Skin: No Rash or Ulcers, No Nodules or Sclerosis Neurological: - - sleepy, stating he wants to Result Diagrams: 01/22/17 05:49 01/22/17 05:49 Additional Lab and Data: Lab Results 01/17/17 01/17/1717 Range/Units 21:56 21:56 21:56 WBC 11.7 H (3.5-10.8) 10^3/ul RBC 4.71 (4.0-5.4) 10^6/ul Hgb 14.3 (14.0-18.0) g/dl Hct 43 (42-52) % MCV 90 (80-94) fL MCH 30 (27-31) pg MCHC 34 (31-36) g/dl RDW 13 (10.5-15) % Plt Count 221 (150-450) 10^3/ul MPV 7 L (7.4-10.4) um3 Neut % (Auto) 76.5 (38-83) % Lymph % (Auto) 12.3 L (25-47) % [place] % (Auto) 10.0 H (1-9) % Eos % (Auto) 0.6 (0-6) % Baso % (Auto) 0.6 (0-2) % Absolute Neuts (auto) 9.0 H (1.5-7.7) 10^3/ul Absolute Lymphs (auto) 1.4 (1.0-4.8) 10^3/ul Absolute Monos (auto) 1.2 H (0-0.8) 10^3/ul Absolute Eos (auto) 0.1 (0-0.6) 10^3/ul Absolute Basos (auto) 0.1 (0-0.2) 10^3/ul Absolute Nucleated RBC 0 10^3/ul Nucleated RBC % 0 INR (Anticoag Therapy) 0.96 (0.89-1.11) Sodium 130 L (133-145) mmol/L Potassium 3.3 L (3.5-5.0) mmol/L Chloride 97 L (101-111) mmol/L Carbon Dioxide 26 (22-32) mmol/L Anion Gap 7 (2-11) mmol/L BUN 19 (6-24) mg/dL Creatinine 0.95 (0.67-1.17) mg/dL Est GFR ( Amer) 96.0 (>60) Est GFR (Non-Af Amer) 74.6 (>60) BUN/Creatinine Ratio 20.0 (8-20) Glucose 105 H (70-100) mg/dL Lactic Acid (0.5-2.0) mmol/L Calcium 8.9 (8.6-10.3) mg/dL Magnesium 2.0 (1.9-2.7) mg/dL Total Bilirubin 0.40 (0.2-1.0) mg/dL AST 12 L (13-39) U/L ALT 8 (7-52) U/L Alkaline Phosphatase 92 (34-104) U/L Troponin I 0.02 (<0.04) ng/mL Total Protein 6.2 L (6.4-8.9) g/dL Albumin 3.7 (3.2-5.2) g/dL Globulin 2.5 (2-4) g/dL Albumin/Globulin Ratio 1.5 (1-3) // Range/Units 21:56 WBC (3.5-10.8) 10^3/ul RBC (4.0-5.4) 10^6/ul Hgb (14.0-18.0) g/dl Hct (42-52) % MCV (80-94) fL MCH (27-31) pg MCHC (31-36) g/dl RDW (10.5-15) % Plt Count (150-450) 10^3/ul MPV (7.4-10.4) um3 Neut % (Auto) (38-83) % Lymph % (Auto) (25-47) % [place] % (Auto) (1-9) % Eos % (Auto) (0-6) % Baso % (Auto) (0-2) % Absolute Neuts (auto) (1.5-7.7) 10^3/ul Absolute Lymphs (auto) (1.0-4.8) 10^3/ul Absolute Monos (auto) (0-0.8) 10^3/ul Absolute Eos (auto) (0-0.6) 10^3/ul Absolute Basos (auto) (0-0.2) 10^3/ul Absolute Nucleated RBC 10^3/ul Nucleated RBC % INR (Anticoag Therapy) (0.89-1.11) Sodium (133-145) mmol/L Potassium (3.5-5.0) mmol/L Chloride (101-111) mmol/L Carbon Dioxide (22-32) mmol/L Anion Gap (2-11) mmol/L BUN (6-24) mg/dL Creatinine (0.67-1.17) mg/dL Est GFR ( Amer) (>60) Est GFR (Non-Af Amer) (>60) BUN/Creatinine Ratio (8-20) Glucose (70-100) mg/dL Lactic Acid 1.1 (0.5-2.0) mmol/L Calcium (8.6-10.3) mg/dL Magnesium (1.9-2.7) mg/dL Total Bilirubin (0.2-1.0) mg/dL AST (13-39) U/L ALT (7-52) U/L Alkaline Phosphatase (34-104) U/L Troponin I (<0.04) ng/mL Total Protein (6.4-8.9) g/dL Albumin (3.2-5.2) g/dL Globulin (2-4) g/dL Albumin/Globulin Ratio (1-3) Assess/Plan/Problems-Billing Mr Jarrett is an 89 year old man with a h/o HTN, seizure disorder, B12 deficiency and bioprosthetic AVR who presented to the ER with c/o recurrent falls in last 2 weeks. - Patient Problems (1) Depression Current Visit: Yes Status: Acute Code(s): F32.9 - MAJOR DEPRESSIVE DISORDER , SINGLE EPISODE, UNSPECIFIED SNOMED Code(s): 79104373 Comment: The patient has appeared depressed from time to time in the hospital though his family states that he had been depressed at home. Starting last night the patient has stated he wants to . Additionally he was found trying to reach for atul-spray to drink. This AM he asked me to bring him poison. Yesterday I spoke with Dr. Orona about recommendations for antidepressants and he recommended remeron 7.5mg at bedtime which was started yesterday. Will ask that the patient be formally seen today. (2) Ataxia Current Visit: Yes Status: Acute Code(s): R27.0 - ATAXIA, UNSPECIFIED SNOMED Code(s): 12705950 Comment: Plan is for STR. PMRU is looking into the patient. Continue with PT while in the hospital. (3) UTI (urinary tract infection) Current Visit: Yes Status: Acute Comment: Continue ceftin to complete 5 days of therapy. Done 01/23/17 at 2100. (4) Hypertension Current Visit: Yes Status: Acute Code(s): I10 - ESSENTIAL (PRIMARY) HYPERTENSION SNOMED Code(s): 17370943 Comment: BP is under fair control. Continue current regimen. (5) Vitamin B12 deficiency Current Visit: Yes Status: Acute Code(s): E53.8 - DEFICIENCY OF OTHER SPECIFIED B GROUP VITAMINS SNOMED Code(s): 777267567 Comment: Pt recieved IM B12 01/18/17. (6) Seizure disorder Current Visit: Yes Status: Acute Code(s): G40.909 - EPILEPSY, UNSP, NOT INTRACTABLE, WITHOUT STATUS EPILEPTICUS SNOMED Code(s): 782178243 Comment: Luis Lr. (7) DVT prophylaxis Current Visit: Yes Status: Acute Code(s): JRS4351 - SNOMED Code(s): 146513105 Comment: SQ heparin (8) DNR (do not resuscitate) Current Visit: Yes Status: Acute Status and Disposition: .
[2017-01-23] MEDS: levETIRAcetam LIQ* 500 MG/5 ML UDC PO SCH ×2 (09:58→20:15)
[2017-01-23] MEDS: ceFUROXime TAB(*) 250 MG PO SCH (11:09)
[2017-01-23] MEDS: Losartan TAB* 25 MG PO SCH ×2 (13:00→20:15)
[2017-01-23] MEDS: Aspirin EC Low Dose* 81 MG TAB.EC PO SCH (13:00)
[2017-01-23] MEDS: Metoprolol Tartrate TAB* 25 MG PO SCH (13:00)
[2017-01-23] MEDS: Tamsulosin CAP* 0.4 MG PO SCH (20:15)
[2017-01-23] MEDS: Mirtazapine TAB* 15 MG PO SCH (20:16)
--- NOTE | 2017-01-23 22:10 | CONS ---
CONSULTATION REPORT: DATE OF CONSULT/DICTATION: 01/23/17 ATTENDING PHYSICIAN: Dr. Etelvina Shields. CONSULTING PHYSICIAN: Dr. Min Orona. REASON FOR CONSULT: Suicidal ideation with reported plan to take poison or overdose on medications. PSYCHIATRIC HISTORY: Psychiatry is asked to see this 89-year-old white male with a recent history of suspected depression who was admitted to the medical service on 01/18/17 following several recent falls. According to the patient's family, he has been increasingly unsteady and more lethargic, sleeping most of the day, and not being as physically active as he used to be. It was suspected by his outpatient provider that he might have depression and he was therefore started on a trial of low-dose citalopram approximately 3 weeks ago. There was perhaps some association between citalopram and worsening of the patient's unsteadiness and therefore, this medication was stopped. At any rate, he was admitted to the hospital following another fall and Psychiatry was asked to render an opinion about his medications. We recommended that the patient have a trial of mirtazapine 7.5 mg p.o. q.h.s. which he received a first dose of at 2100 hours last evening. At this point, however, the patient seems to have undergone a worsening of his mood even prior to receiving the dose of mirtazapine. He was allegedly making suicidal statements to the effect that he would either ask of poison or reach for a spray bottle of cleaning solution in an attempt to harm himself. It was also a concern of staff that it was discovered that he was trying to hide pills presumably to overdose himself. Psychiatry is aware that the patient has a history of seizure disorder and that he was seen for this reason by the Neurology consult service on 01/20/17. When I arrived at the patient's room, he is resting comfortably. The patient has no recollection of making suicidal statements or threats and he denies any thought of harming himself. He does appear to remember much of his behavior either the morning of consultation or the night prior, which is when he is alleged to have made these statements. His son, Brendon Jarrett Junior, is present and provides a great deal of this history. My understanding is that there is some uncertainty regarding where the patient will go following medical stabilization. There has been some talk of putting him in a subacute rehab versus sending him to our physical medicine unit versus perhaps initiating palliative care. On examination, the patient does endorse neurovegetative symptoms of depression such as hypersomnolence, anhedonia, lack of energy, lack of concentration, but he denies guilt or psychomotor retardation and he continues to deny suicidal thoughts despite being asked several times about this. He denies homicidality towards others. PAST PSYCHIATRIC HISTORY: The patient had no formal history of mental health treatment until approximately 3 weeks ago when his primary care provider placed him on citalopram. He has never had any history of suicidal behavior, never been psychiatrically hospitalized, and has no history of trauma, abuse, or neglect. SUBSTANCE ABUSE HISTORY: Noncontributory. He tends to drink 1 beer per day. He used to smoke back in his early 20s, but quit this a long time ago. MEDICAL HISTORY: Significant for: 1. Seizure disorder. 2. Aortic valve replacement. 3. Gastroesophageal reflux disease. 4. Benign prostatic hypertrophy. 5. Hypertension. MEDICATIONS: At the time of admission included: 1. HCTZ 12.5 mg daily. 2. Prevacid 15 mg daily. 3. Metoprolol 25 mg daily. 4. Altace 15 mg daily. 5. Flomax 0.4 mg at night. FAMILY HISTORY: There is no history of mental illness. SOCIAL HISTORY: The patient was born and raised in [place], [place]. He served in the [employer] at the tail end of World War II and was actually [place]. 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 He has a primary residence here in [place], but also a secondary residence in [place] and tends to travel back and forth depending on the weather. He remains to his , who is 85 years old. They have 3 children, 2 boys and 1 girl, all of whom live in the [place] area. He has a total of 4 grandchildren. The patient has always been physically active, running and jogging. More recently, he has been a walker, but more recently, he is unable to walk past his own driveway. He has never had any significant legal issues. MENTAL STATUS EXAMINATION: The patient is an aging white male who is notable for large contusion on the bridge of his nose and around his right eye which appears to be a result of having fallen. He is calm and cooperative, but sleepy and not very spontaneous. Speech is slow with soft tone and not a great deal of detail. Mood would appear to be depressed with a constricted affect. Thought process is linear. Thought content is significant for his desire to be discharged from the hospital. He denies suicidal or homicidal ideations. He denies auditory or visual hallucinations. Insight and judgment seem to be poor given his recent self-harming behaviors. Cognitively, he is somnolent, but oriented to place. DIAGNOSES: Schulter I: Major depressive disorder, single episode, severe without psychotic features. Schulter II: Deferred. ASSESSMENT: The patient is an 89-year-old white male with a recent history of depression who was admitted to the hospitalist service on 01/18/17 following several falls in the community who now presents with depressed mood and suicidal ideations. Upon examination, he is now denying suicidality; however, his son is present and does indicate that there has been a great deal of evidence that points to a depressive illness even prior to this admission. He appears to have had a negative response to citalopram recently and so, this was discontinued and he has already been placed on mirtazapine 7.5 mg p.o. q. nightly on the recommendation of the psychiatric consult service; however, he has only received 1 dose of this so far. My sense is that he is not an acute danger to himself; however, to be on the safe side, it would be important to keep him under supervision and he will certainly need close psychiatric followup while hospitalized. RECOMMENDATIONS: Psychiatry will return to evaluate the patient tomorrow and will evaluate his suicidality at that time as well. We will recommend that he is maintained on one-to-one observations to make sure he is not danger to himself for the time being. He has already started a trial of mirtazapine 7.5 mg p.o. q. nightly which is typically well tolerated in the elderly population. I am hoping that it will stimulate his appetite and improve his neurovegetative symptoms as well. I do not see rationale for psychiatric hospitalization at this time, but we can certainly reevaluate this moving forward as we see him again. Psychiatry will continue to follow the patient. Thank you for allowing us to participate in the care of this very interesting gentleman. [id number]/[facility] #: [id number] VISHAL
[2017-01-24] MEDS: Omeprazole CAP* 20 MG PO SCH (07:13)
[2017-01-24] MEDS: Heparin VIAL(*) 5000 UNITS/ML VIAL (FIVE THOUSAND) SUBCUT SCH (07:13)
[2017-01-24 07:40] VITALS: BP 151/64
--- NOTE | 2017-01-24 08:02 | PN ---
Subjective Date of Service: 01/24/17 Interval History: Pt is feeling well. The aide states that the patient had a good night and morning so far. He has not talked about or suicide this AM. He states he vaguely remembers saying he wanted individuals to bring him poison. He denies any pain. He denies SOB. Family History: Unchanged from Admission Social History: Unchanged from Admission Past Medical History: Unchanged from Admission Objective Active Medications: Acetaminophen (Tylenol Adult Liq*) 650 mg PO Q6H PRN PRN Reason: FEVER/PAIN Last Admin: 01/23/17 09:58 Dose: 650 mg Albuterol (Ventolin 2.5 Mg/3 Ml Neb.Carmen*) 2.5 mg INH Q2H PRN PRN Reason: SOB/WHEEZING Last Admin: 01/23/17 04:55 Dose: 2.5 mg Aspirin (Aspirin Ec Low Dose*) 81 mg PO DAILY [facility] Last Admin: 01/23/17 13:00 Dose: Not Given Cyanocobalamin (Vitamin B12 Inj *) 1,000 mcg IM Q30D [facility] Last Admin: 01/18/17 20:45 Dose: 1,000 mcg Docusate Sodium (Colace Cap*) 200 mg PO BID PRN PRN Reason: CONSTIPATION Heparin Sodium (Porcine) (Heparin Vial(*)) 5,000 units SUBCUT Q8HR [facility] Last Admin: 01/24/17 07:13 Dose: 5,000 units Hydralazine HCl (Apresoline Iv*) 10 mg IV Q4H PRN PRN Reason: Systolic >170 Last Admin: 01/23/17 03:49 Dose: 10 mg Ibuprofen (Motrin Tab*) 400 mg PO Q8H PRN PRN Reason: FEVER/PAIN Last Admin: 01/23/17 06:29 Dose: 400 mg Levetiracetam (Keppra Liq*) 500 mg PO BID [facility] Last Admin: 01/23/17 20:15 Dose: 500 mg Losartan Potassium (Cozaar Tab*) 25 mg PO BEDTIME [facility] Last Admin: 01/23/17 20:15 Dose: 25 mg Losartan Potassium (Cozaar Tab*) 50 mg PO DAILY [facility] Last Admin: 01/23/17 13:00 Dose: Not Given Metoprolol Tartrate (Lopressor Tab*) 25 mg PO DAILY [facility] Last Admin: 01/23/17 13:00 Dose: Not Given Mirtazapine (Remeron Tab*) 7.5 mg PO BEDTIME [facility] Last Admin: 01/23/17 20:16 Dose: 7.5 mg Omeprazole (Prilosec Cap*) 20 mg PO DAILY@0600 [facility] PRN Reason: Protocol Last Admin: 01/24/17 07:13 Dose: 20 mg Ondansetron HCl (Zofran Inj*) 4 mg IV Q6H PRN PRN Reason: NAUSEA Tamsulosin HCl (Flomax Cap*) 0.4 mg PO BEDTIME [facility] Last Admin: 01/23/17 20:15 Dose: 0.4 mg Vital Signs 01/23/17 01/23/17 01/23/17 08:00 11:34 15:10 Temperature Pulse Rate 68 66 Respiratory 16 15 14 Rate Blood Pressure 96/61 142/80 (mmHg) O2 Sat by Pulse 94 96 Oximetry 01/23/17 01/23/17 01/23/17 20:00 20:29 23:08 Temperature 97.6 F 97.5 F Pulse Rate 96 86 Respiratory 16 20 19 Rate Blood Pressure 145/87 130/79 (mmHg) O2 Sat by Pulse 98 97 Oximetry 01/23/17 01/24/17 01/24/17 23:09 02:20 04:37 Temperature 97.5 F Pulse Rate 86 86 85 Respiratory 19 20 16 Rate Blood Pressure 130/79 163/85 (mmHg) O2 Sat by Pulse 97 97 97 Oximetry 01/24/17 07:38 Temperature 97.5 F Pulse Rate 68 Respiratory 17 Rate Blood Pressure 151/64 (mmHg) O2 Sat by Pulse 96 Oximetry Oxygen Devices in Use Now: None Appearance: Elderly male sitting up in bed, NAD Eyes: No Scleral Icterus Ears/Nose/Mouth/Throat: Mucous Membranes Moist Respiratory: Symmetrical Chest Expansion and Respiratory Effort, Clear to Auscultation Cardiovascular: NL Sounds; No Murmurs; No JVD, RRR, No Edema Abdominal: NL Sounds; No Tenderness; No Distention Extremities: No Clubbing, Cyanosis Skin: No Rash or Ulcers, No Nodules or Sclerosis Neurological: - - oriented to place, situation Result Diagrams: 01/22/17 05:49 01/22/17 05:49 Additional Lab and Data: Lab Results 01/17/17 01/17/17 01/17/17 Range/Units 21:56 21:56 21:56 WBC 11.7 H (3.5-10.8) 10^3/ul RBC 4.71 (4.0-5.4) 10^6/ul Hgb 14.3 (14.0-18.0) g/dl Hct 43 (42-52) % MCV 90 (80-94) fL MCH 30 (27-31) pg MCHC 34 (31-36) g/dl RDW 13 (10.5-15) % Plt Count 221 (150-450) 10^3/ul MPV 7 L (7.4-10.4) um3 Neut % (Auto) 76.5 (38-83) % Lymph % (Auto) 12.3 L (25-47) % [place] % (Auto) 10.0 H (1-9) % Eos % (Auto) 0.6 (0-6) % Baso % (Auto) 0.6 (0-2) % Absolute Neuts (auto) 9.0 H (1.5-7.7) 10^3/ul Absolute Lymphs (auto) 1.4 (1.0-4.8) 10^3/ul Absolute Monos (auto) 1.2 H (0-0.8) 10^3/ul Absolute Eos (auto) 0.1 (0-0.6) 10^3/ul Absolute Basos (auto) 0.1 (0-0.2) 10^3/ul Absolute Nucleated RBC 0 10^3/ul Nucleated RBC % 0 INR (Anticoag Therapy) 0.96 (0.89-1.11) Sodium 130 L (133-145) mmol/L Potassium 3.3 L (3.5-5.0) mmol/L Chloride 97 L (101-111) mmol/L Carbon Dioxide 26 (22-32) mmol/L Anion Gap 7 (2-11) mmol/L BUN 19 (6-24) mg/dL Creatinine 0.95 (0.67-1.17) mg/dL Est GFR ( Amer) 96.0 (>60) Est GFR (Non-Af Amer) 74.6 (>60) BUN/Creatinine Ratio 20.0 (8-20) Glucose 105 H (70-100) mg/dL Lactic Acid (0.5-2.0) mmol/L Calcium 8.9 (8.6-10.3) mg/dL Magnesium 2.0 (1.9-2.7) mg/dL Total Bilirubin 0.40 (0.2-1.0) mg/dL AST 12 L (13-39) U/L ALT 8 (7-52) U/L Alkaline Phosphatase 92 (34-104) U/L Troponin I 0.02 (<0.04) ng/mL Total Protein 6.2 L (6.4-8.9) g/dL Albumin 3.7 (3.2-5.2) g/dL Globulin 2.5 (2-4) g/dL Albumin/Globulin Ratio 1.5 (1-3) // Range/Units 21:56 WBC (3.5-10.8) 10^3/ul RBC (4.0-5.4) 10^6/ul Hgb (14.0-18.0) g/dl Hct (42-52) % MCV (80-94) fL MCH (27-31) pg MCHC (31-36) g/dl RDW (10.5-15) % Plt Count (150-450) 10^3/ul MPV (7.4-10.4) um3 Neut % (Auto) (38-83) % Lymph % (Auto) (25-47) % [place] % (Auto) (1-9) % Eos % (Auto) (0-6) % Baso % (Auto) (0-2) % Absolute Neuts (auto) (1.5-7.7) 10^3/ul Absolute Lymphs (auto) (1.0-4.8) 10^3/ul Absolute Monos (auto) (0-0.8) 10^3/ul Absolute Eos (auto) (0-0.6) 10^3/ul Absolute Basos (auto) (0-0.2) 10^3/ul Absolute Nucleated RBC 10^3/ul Nucleated RBC % INR (Anticoag Therapy) (0.89-1.11) Sodium (133-145) mmol/L Potassium (3.5-5.0) mmol/L Chloride (101-111) mmol/L Carbon Dioxide (22-32) mmol/L Anion Gap (2-11) mmol/L BUN (6-24) mg/dL Creatinine (0.67-1.17) mg/dL Est GFR ( Amer) (>60) Est GFR (Non-Af Amer) (>60) BUN/Creatinine Ratio (8-20) Glucose (70-100) mg/dL Lactic Acid 1.1 (0.5-2.0) mmol/L Calcium (8.6-10.3) mg/dL Magnesium (1.9-2.7) mg/dL Total Bilirubin (0.2-1.0) mg/dL AST (13-39) U/L ALT (7-52) U/L Alkaline Phosphatase (34-104) U/L Troponin I (<0.04) ng/mL Total Protein (6.4-8.9) g/dL Albumin (3.2-5.2) g/dL Globulin (2-4) g/dL Albumin/Globulin Ratio (1-3) Assess/Plan/Problems-Billing Mr Jarrett is an 89 year old man with a h/o HTN, seizure disorder, B12 deficiency and bioprosthetic AVR who presented to the ER with c/o recurrent falls in last 2 weeks. - Patient Problems (1) Depression Current Visit: Yes Status: Acute Code(s): F32.9 - MAJOR DEPRESSIVE DISORDER , SINGLE EPISODE, UNSPECIFIED SNOMED Code(s): 79140432 Comment: Dr. Orona saw the patient yesterday and recommended continuing the remeron. Today the patient is feeling better than yesterday AM. He also does not appear as sleepy. Continue remeron at current dose. Dr. Orona will follow up today. He is likely ready to go rehab. (2) Ataxia Current Visit: Yes Status: Acute Code(s): R27.0 - ATAXIA, UNSPECIFIED SNOMED Code(s): 13781484 Comment: Plan is for STR. PMRU is looking into the patient. Continue with PT while in the hospital. (3) UTI (urinary tract infection) Current Visit: Yes Status: Acute Comment: Completed treatment. (4) Hypertension Current Visit: Yes Status: Acute Code(s): I10 - ESSENTIAL (PRIMARY) HYPERTENSION SNOMED Code(s): 13629411 Comment: BP is under fair control. Continue current regimen. (5) Vitamin B12 deficiency Current Visit: Yes Status: Acute Code(s): E53.8 - DEFICIENCY OF OTHER SPECIFIED B GROUP VITAMINS SNOMED Code(s): 796503822 Comment: Pt recieved IM B12 01/18/17. (6) Seizure disorder Current Visit: Yes Status: Acute Code(s): G40.909 - EPILEPSY, UNSP, NOT INTRACTABLE, WITHOUT STATUS EPILEPTICUS SNOMED Code(s): 476595325 Comment: Luis Lr. (7) DVT prophylaxis Current Visit: Yes Status: Acute Code(s): WMJ0607 - SNOMED Code(s): 171474475 Comment: SQ heparin (8) DNR (do not resuscitate) Current Visit: Yes Status: Acute Status and Disposition: .
[2017-01-24] MEDS: levETIRAcetam LIQ* 500 MG/5 ML UDC PO SCH (08:06)
[2017-01-24] MEDS: Metoprolol Tartrate TAB* 25 MG PO SCH (08:07)
[2017-01-24] MEDS: Losartan TAB* 25 MG PO SCH (08:07)
[2017-01-24] MEDS: Aspirin EC Low Dose* 81 MG TAB.EC PO SCH (08:09)
--- NOTE | 2017-01-24 12:33 | PN ---
Progress Note - Progress Note Note: Pt has been offered a bed in [facility] today. [place] removed from the posterior scalp laceration. He is ready for d/c to [facility].
--- NOTE | 2017-01-24 12:37 | CONSULT ---
Identification - Patient Identification Reason for Psychiatric Consultation: Suicidal Ideation -: Patient is a 89 year old, M admitted on 01/18/17. - MHU Identification Employment Status: Disabled Hx Psychiatric Hospitalization: No History - Objective HPI: Brendon is reassessed by psychiatry and several of his family members, including his , son and daughter, are present. The patient continues to deny SI and had a good night of sleep last night. He appears to be tolerating mirtazapine well and voices no acute complaints this morning. Apparently, he has been accepted for transfer to the PMR unit here at [facility] for acute rehab and is pending movement to that location. Lab Results: Laboratory Tests 01/18/17 01/18/17 01/19/17 06:23 06:23 05:18 WBC 10.9 H 11.4 H RBC 4.52 4.66 Hgb 13.8 L 14.0 Hct 40 L 42 MCV 89 90 MCH 31 30 MCHC 34 33 RDW 13 13 Plt Count 226 212 MPV 7 L 7 L Neut % (Auto) 80.1 Lymph % (Auto) 9.3 L [place] % (Auto) 10.2 H Eos % (Auto) 0.2 Baso % (Auto) 0.2 Absolute Neuts (auto) 9.1 H Absolute Lymphs (auto) 1.1 Absolute Monos (auto) 1.2 H Absolute Eos (auto) 0 Absolute Basos (auto) 0 Absolute Nucleated RBC 0 Nucleated RBC % 0 Sodium 128 L Potassium 3.5 Chloride 98 L Carbon Dioxide 26 Anion Gap 4 BUN 18 Creatinine 0.96 Est GFR ( Amer) 94.8 Est GFR (Non-Af Amer) 73.8 BUN/Creatinine Ratio 18.8 Glucose 113 H Calcium 8.7 01/19/17 01/19/17 01/22/17 05:18 13:25 05:49 WBC 11.6 H 9.9 RBC 4.73 4.60 Hgb 14.4 14.3 Hct 43 41 L MCV 90 89 MCH 30 31 MCHC 34 35 RDW 13 13 Plt Count 234 230 MPV 7 L 7 L Neut % (Auto) 75.8 Lymph % (Auto) 13.0 L [place] % (Auto) 10.2 H Eos % (Auto) 0.7 Baso % (Auto) 0.3 Absolute Neuts (auto) 8.8 H Absolute Lymphs (auto) 1.5 Absolute Monos (auto) 1.2 H Absolute Eos (auto) 0.1 Absolute Basos (auto) 0 Absolute Nucleated RBC 0 Nucleated RBC % 0 Sodium 130 L Potassium 3.5 Chloride 100 L Carbon Dioxide 22 Anion Gap 8 BUN 13 Creatinine 0.75 Est GFR ( Amer) 126.1 Est GFR (Non-Af Amer) 98.1 BUN/Creatinine Ratio 17.3 Glucose 118 H Calcium 8.6 01/22/17 05:49 WBC RBC Hgb Hct MCV MCH MCHC RDW Plt Count MPV Neut % (Auto) Lymph % (Auto) [place] % (Auto) Eos % (Auto) Baso % (Auto) Absolute Neuts (auto) Absolute Lymphs (auto) Absolute Monos (auto) Absolute Eos (auto) Absolute Basos (auto) Absolute Nucleated RBC Nucleated RBC % Sodium 128 L Potassium 3.4 L Chloride 98 L Carbon Dioxide 22 Anion Gap 8 BUN 19 Creatinine 0.84 Est GFR ( Amer) 110.6 Est GFR (Non-Af Amer) 86.0 BUN/Creatinine Ratio 22.6 H Glucose 101 H Calcium 9.0 Exam Appearance: Thin Framed Psychomotor Activities: Abnormal-Decreased Exhibits Abnormal Movement: No Attitude and Relatedness: Cooperative Eye Contact: Fair - Speech Quality: Unpressured Latencies: Normal Quantity: Terse Patient's Decription of Mood: "Okay" Observed Affect: Constricted Affect Consistent with: Euthymia Patient's Thought Process: Coherent, Circumstantial Thought Content: No Passive Wish, No Suicidal Planning, No Homicidal Ideation, No Paranoid Ideation Experiencing Hallucinations: No, Sensorium is Clear Type of Hallucinations: Visual: No, Auditory: No, Command: No Level of Consciousness: Alert Orientation: Yes Intact, Yes Orientated to Time, Yes Orientated to Place, Yes Orientated to Person Impulse Control: Tenuous Insight and Judgement: Fair Impression - Impression Clinical Impression: 89 y.o. , white male with a recent diagnosis of depression admitted to the Medical service secondary to several recent falls, possibly related to recent trial of low dose citalopram, who is being evaluated by psychiatry for SI and threats on the unit to "take poison." Inpatient DSM-IV Dx: MDD, single episode, moderate Merits Inpatient Hospitalization: No Problem List - MHU Problems Type of Problem: Mood Status of Problem: Active Plan - Treatment Plan Treatment Plan: The patient is psychiatrically cleared and can be taken off 1:1 observations. He is set to be transferred to the [address] [place] [address] and psychiatry is happy to re- evaluate him there is the need arises. He has been switched to a trial of mirtazapine 7.5mg PO qhs and appears to be tolerating this well. Thanks for the interesting referral and we wish Mr. Jarrett the best in his recovery. Continued Medication Management: Different Medication Medications: Current Medications Acetaminophen (Tylenol Adult Liq*) 650 mg PO Q6H PRN PRN Reason: FEVER/PAIN Last Admin: 01/23/17 09:58 Dose: 650 mg Albuterol (Ventolin 2.5 Mg/3 Ml Neb.Carmen*) 2.5 mg INH Q2H PRN PRN Reason: SOB/WHEEZING Last Admin: 01/23/17 04:55 Dose: 2.5 mg Aspirin (Aspirin Ec Low Dose*) 81 mg PO DAILY [facility] Last Admin: 01/24/17 08:09 Dose: 81 mg Cyanocobalamin (Vitamin B12 Inj *) 1,000 mcg IM Q30D [facility] Last Admin: 01/18/17 20:45 Dose: 1,000 mcg Docusate Sodium (Colace Cap*) 200 mg PO BID PRN PRN Reason: CONSTIPATION Heparin Sodium (Porcine) (Heparin Vial(*)) 5,000 units SUBCUT Q8HR [facility] Last Admin: 01/24/17 07:13 Dose: 5,000 units Hydralazine HCl (Apresoline Iv*) 10 mg IV Q4H PRN PRN Reason: Systolic >170 Last Admin: 01/23/17 03:49 Dose: 10 mg Ibuprofen (Motrin Tab*) 400 mg PO Q8H PRN PRN Reason: FEVER/PAIN Last Admin: 01/23/17 06:29 Dose: 400 mg Levetiracetam (Keppra Liq*) 500 mg PO BID [facility] Last Admin: 01/24/17 08:06 Dose: 500 mg Losartan Potassium (Cozaar Tab*) 25 mg PO BEDTIME [facility] Last Admin: 01/23/17 20:15 Dose: 25 mg Losartan Potassium (Cozaar Tab*) 50 mg PO DAILY [facility] Last Admin: 01/24/17 08:07 Dose: 50 mg Metoprolol Tartrate (Lopressor Tab*) 25 mg PO DAILY [facility] Last Admin: 01/24/17 08:07 Dose: 25 mg Mirtazapine (Remeron Tab*) 7.5 mg PO BEDTIME [facility] Last Admin: 01/23/17 20:16 Dose: 7.5 mg Omeprazole (Prilosec Cap*) 20 mg PO DAILY@0600 [facility] PRN Reason: Protocol Last Admin: 01/24/17 07:13 Dose: 20 mg Ondansetron HCl (Zofran Inj*) 4 mg IV Q6H PRN PRN Reason: NAUSEA Tamsulosin HCl (Flomax Cap*) 0.4 mg PO BEDTIME [facility] Last Admin: 01/23/17 20:15 Dose: 0.4 mg
--- NOTE | 2017-01-26 07:18 | DS ---
DISCHARGE SUMMARY: DATE OF ADMISSION: 01/17/17 DATE OF DISCHARGE: 01/24/17 PRIMARY CARE PROVIDER: Karthik May MD PRINCIPAL DIAGNOSES: 1. Increased falls secondary to progressive gait instability and progressive cognitive decline. 2. Suicidal ideation - resolved. SECONDARY DIAGNOSES: 1. Seizure disorder. 2. Benign prostatic hypertrophy. 3. Gastroesophageal reflux disease. 4. Hypertension. 5. Depression. DISCHARGE MEDICATIONS: 1. Aspirin 81 mg p.o. daily. 2. Keppra 500 mg p.o. b.i.d. 3. Prevacid 15 mg p.o. daily. 4. Flomax 0.4 mg p.o. q.h.s. 5. Metoprolol tartrate 25 mg p.o. daily. 6. Remeron 7.5 mg p.o. q.h.s. 7. Losartan 25 mg p.o. q.h.s. 8. Tylenol 650 mg p.o. q.6 hours p.r.n. pain. HOSPITAL COURSE: Mr. Jarrett is an 89-year-old male who has a history of cognitive impairment and gait instability, who was brought to the emergency room on 01/17/17 after sustaining yet another fall. The patient was started on Celexa approximately 3 weeks prior to admission and approximately 2 weeks prior to admission, the patient's family noted that he has had increased falls. A workup was undertaken to try to determine the cause of this. A transthoracic echocardiogram was obtained, which revealed an EF of 55% to 60% with global left ventricular wall motion and contractility being within normal limits. Diastolic dysfunction was noted. The plan was going to be to get an MRI; however, it was determined the patient's pacemaker leads were not MRI- compatible. The patient was seen in consultation by Dr. Melgar, who ultimately felt after speaking with multiple family members that the patient's increase in falls were likely related to progressive gait instability and cognitive impairment. The patient did undergo a CTA of the head and neck to evaluate for vertebrobasilar insufficiency, which does not appear to be the case. While awaiting disposition for rehab, the patient began to express suicidal ideations stating that he wanted to and that he wanted people to bring him poison. A Psychiatry consultation was requested. Dr. Orona saw the patient and recommended continuing Remeron, which was started the day prior. By the day of discharge, however, the patient only vaguely remembered making these statements. The patient was cleared from a mental health standpoint. Of note, the patient did have 6 lisa placed at the time of his ER visit due to a posterior scalp laceration. These were removed on the day of discharge. FOLLOWUP CONCERNS: The patient is being discharged to [facility] today, 01/24/17. ACTIVITY LEVEL: As tolerated. DIET: Regular. CONDITION ON DISCHARGE: Stable. TIME SPENT: Thiry-five minutes were spent discharging this patient. CC: Karthik May MD* [id number] #: [id number] MTDD
== END 2017-01-24 13:50 | DRG 92 ==
LOC: ED 20:40 → MED 01-18 01:52
PROVIDERS: ADMIT Hospitalist; ATTEND Hospitalist
PROC: 0HQ0XZZ Repair Scalp Skin, External Approach (ICD-10-PCS; principal; 2017-01-17)
PROC: 0HQ1XZZ Repair Face Skin, External Approach (ICD-10-PCS; 2017-01-17)
DX: R26.0 Ataxic gait (principal); F32.2 Major depressive disorder, single episode, severe without psychotic features; R45.851 Suicidal ideations; N39.0 Urinary tract infection, site not specified; E87.1 Hypo-osmolality and hyponatremia; I10 Essential (primary) hypertension; S01.21XA Laceration without foreign body of nose, initial encounter; S01.111A Laceration without foreign body of right eyelid and periocular area, initial encounter; R41.81 Age-related cognitive decline; G40.409 Other generalized epilepsy and epileptic syndromes, not intractable, without status epilepticus; N40.0 Benign prostatic hyperplasia without lower urinary tract symptoms; K21.9 Gastro-esophageal reflux disease without esophagitis; E53.8 Deficiency of other specified B group vitamins; I77.1 Stricture of artery; Z66 Do not resuscitate; E87.6 Hypokalemia; F32.9 Major depressive disorder, single episode, unspecified; S01.01XA Laceration without foreign body of scalp, initial encounter; G62.9 Polyneuropathy, unspecified; W06.XXXA Fall from bed, initial encounter; Z91.81 History of falling; Z95.3 Presence of xenogenic heart valve; Z95.810 Presence of automatic (implantable) cardiac defibrillator; Z87.891 Personal history of nicotine dependence; Z79.82 Long term (current) use of aspirin; Z98.49 Cataract extraction status, unspecified eye; Z82.49 Family history of ischemic heart disease and other diseases of the circulatory system
CPT/HCPCS: 36415; 70450; 70486; 70496; 70498; 80048; 80053; 81003; 81015; 83605; 83735; 84484; 85025; 85027; 85610; 87086; 93005; 93306; 94640; 94760; A9270-GY; J0360; J1644; J3420; Q9967

== ENCOUNTER 2017-01-24 12:28 | Inpatient (IN) | payer MEDICARE ==
[2017-01-24] MEDS ORDERED: Bisacodyl SUPP* 10 MG SUPP PR PRN (14:22)
[2017-01-24] MEDS ORDERED: Al Hydrox/Mg Hydrox/Simet LIQ* 30 ML UDC PO PRN (14:22)
[2017-01-24] MEDS ORDERED: Senna TAB PO PRN (14:22)
[2017-01-24] MEDS ORDERED: Albuterol (2.5 MG) 0.5 % CONC 2.5 MG/0.5 ML NEB.SOLN (ICU and ED only) INH PRN (14:32)
[2017-01-24] MEDS ORDERED: hydrALAZINE TAB* 10 MG PO PRN (14:38)
--- NOTE | 2017-01-24 15:38 | RAD ---
INDICATION: Hypoxia COMPARISON: May 08, 2014 TECHNIQUE: AP seated and lateral views were obtained. FINDINGS: Bones/Soft Tissues: There are no acute bony findings. There is sternotomy. There is left-sided cardiac pacemaker. Cardiomediastinal: The cardiomediastinal silhouette is normal. There is mild valvular surgery. There is mild interstitial congestion. Lungs: There are bibasilar infiltrates or atelectasis with small bilateral pleural effusions.. Pleura: There are no pleural effusions. Other: None IMPRESSION: MILD VASCULAR CONGESTION WITH BASILAR INFILTRATES OR ATELECTASIS AND SMALL BILATERAL PLEURAL EFFUSIONS.
[2017-01-24] MEDS: levETIRAcetam TAB* 500 MG PO SCH (20:39)
[2017-01-24] MEDS: CEFUROXIME 250 MG PO SCH (20:41)
[2017-01-24] MEDS: Tamsulosin CAP* 0.4 MG PO SCH (20:42)
[2017-01-24] MEDS: Losartan TAB* 25 MG PO SCH (20:42)
[2017-01-24] MEDS: Docusate CAP* 100 MG PO SCH (20:43)
[2017-01-24] MEDS: Mirtazapine TAB* 15 MG PO SCH (20:43)
--- NOTE | 2017-01-24 22:09 | HP ---
CC: Dr. May; Dr. Concepcion REHABILITATION ADMISSION REPORT: DATE OF ADMISSION: 01/24/17 PRIMARY CARE PROVIDER: Dr. May. NEUROLOGIST: Dr. Concepcion. REASON FOR ADMISSION: Ataxia with vitamin B12 peripheral neuropathy. HISTORY OF PRESENT ILLNESS: This is an 89-year-old man with a history of seizure disorder, followed by Dr. Concepcion, who about 3 weeks ago started taking Celexa. It was noted that he was having more issues with falling and imbalance over the last few weeks and this led to his obtaining a walker. He was admitted on January 17 after particularly bad fall when he fell forward, hit his head, and sustained a laceration on his occiput. This required sutures. It was witnessed and it did not appear that he lost consciousness, although he is not sure himself. He and his family all agreed that it did not appear to be seizure related. CT of his head was negative for acute changes. He was evaluated by Dr. Melgar in Neurology and it was felt that he has likely had a gradual decline due to cerebrovascular issues for the cognition and his gait with some contribution from vitamin B12 deficiency. Vitamin B12 was replaced with IM injection, which he is to continue every 30 days. He was also felt to have a UTI, although culture was negative. He got 5 days of antibiotics to treat that. He has had some hypokalemia and hyponatremia. The potassium was replaced. Transthoracic echocardiogram showed ejection fraction of 55% to 60% and moderate left ventricular hypertrophy. He has had hypertensive episodes and medications have been added and adjusted. He has hydralazine on an as needed basis. CTA of the head and neck on 01/21/17 showed atherosclerosis, but no specific lesion that needed intervention. He was then quite depressed and had some suicidal ideation. Psychiatry was consulted. For a period of about 24 hours, he was on one-to-one observation. The following day, he could not remember making any suicidal comments. His Celexa was discontinued and he was started on Remeron, which he seems to tolerate and seems in a better mood. He has been noted with mobilization to have hypoxia and has required oxygen supplementation. Prior to admission and this acute illness, he was independent with ambulation and activities of daily living. With physical therapy here, he has required moderate amount of assistance x2 for transferring and a minimum amount of assistance for ambulation using a rolling walker. With occupational therapy, he required moderate amount of assistance for lower body dressing and bathing. He required total assistance for toileting. He has not been evaluated by Speech Therapy. He acknowledges some choking and coughing when he is eating. PAST MEDICAL HISTORY: 1. Hypertension. 2. Aortic valve replacement, bioprosthetic. 3. AV pacemaker. 4. Petit mal seizure disorder. 5. GERD. 6. Benign prostatic hypertrophy. 7. B12 deficiency with mild peripheral neuropathy. 8. History of empyema as a 5-year-old. 9. Multi-infarct dementia and gait disorder 10. Depression PAST SURGICAL HISTORY: Status post cataract surgery, status post cholecystectomy, status post appendectomy, status post hernia repair. MEDICATIONS: 1. Tylenol 650 mg q.6 hours p.r.n. 2. Albuterol nebulizer p.r.n. 3. Aspirin 81 mg q. day. 4. Vitamin B12 1000 mg injected IM q.30 days. 5. Colace 200 mg b.i.d. p.r.n. 6. Heparin 5000 units q.8 hours for DVT prophylaxis. 7. Motrin 400 mg q.8 hours p.r.n. pain. 8. Keppra 500 mg p.o. b.i.d. 9. Cozaar 50 mg in the morning and 25 mg q.h.s. 10. Metoprolol 25 mg q. day. 11. Remeron 7.5 mg q.h.s. 12. Omeprazole 20 mg q. day. 13. Tamsulosin 0.4 mg q.h.s. 14. Hydralazine 10 mg, he has been receiving IV q.6 hours p.r.n., but this will be changed to p.o. ALLERGIES: No known drug allergies. FAMILY HISTORY: Significant for hypertension, hyperlipidemia, and coronary artery disease. SOCIAL HISTORY: He lives with his . His home is 1 level, but there is a flight of stairs down to the basement. There are 3 to 5 steps to enter depending on the entry way. 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 He quit smoking approximately 50 years ago. Rare alcohol use. His is his healthcare proxy if he cannot make decisions for himself. Her name is Kelley Jarrett, phone number at home is [phone], cell phone is [phone]. REVIEW OF SYSTEMS: See history of present illness and past medical history. Remainder of the review was completed, no other significant findings. PHYSICAL EXAMINATION GENERAL: Well-developed, well-nourished, appearing stated age. VITAL SIGNS: Temperature 98.1, pulse 81, blood pressure 132/82, respirations 16 , oxygenation 97% on 2 L. HEENT: Normocephalic. He has ecchymosis around both of his eyes and small eschars spotted on his face. There is a well-healed laceration on the right occiput, but is clean, dry, and intact. Oropharynx is clear. Moist mucous membranes. NECK: Supple. No lymphadenopathy. No tenderness to palpation. LUNGS: Clear to auscultation bilaterally. HEART: Regular rate and rhythm. ABDOMEN: Active bowel sounds. Soft, nontender, nondistended. EXTREMITIES: No clubbing, cyanosis, or edema. 2+ peripheral pulses. NEUROLOGIC: Cranial nerves II through XII are intact. Motor testing is 5/5 bilateral upper and lower extremities. Sensation appears intact. He seems to have intact proprioception of his great toes. He is able to slowly to do finger to nose with a little bit of disorganization bilaterally equally. MENTAL STATUS: No acute distress. Alert and appropriate, but he is only oriented to the year. He is aware of falling and this is the reason for his hospitalization. He thought the month was December instead of January. LABORATORY DATA: Recent labs on 01/22/17, his white blood cell count was 9.9, hemoglobin 14.3, hematocrit 41, and platelets 230. Sodium 128, potassium 3.4, BUN 19, creatinine 0.84. IMPRESSION: An 89-year-old man with multi-infarct dementia and gait disorder and mild peripheral neuropathy secondary to vitamin B12 deficiency. He will be admitted to [facility] so he can return to living with his . PLAN/RECOMMENDATIONS: 1. Multi-infarct dementia and gait disorder - he is on baby aspirin. He is remaining off Celexa. Continue with vitamin B12 supplementation. Neurology followup as appropriate. 2. Impaired cognition. We will have Speech Therapy evaluate this more closely. Since he did have a closed head injury, he may have suffered some traumatic brain injury. 3. Dysphagia. He complains of some difficulty swallowing. We will have Speech Therapy evaluate this. 4. Seizure disorder. Continue with his current Keppra and seizure precautions. 5. Hypoxia. I will get a chest x-ray. Continue oxygenation as needed and nebulizers as needed. 6. Depression. Continue Remeron and follow up with Psychiatry as needed. 7. Hypertension. Continue with current medication and p.o. hydralazine as needed. 8. Hypokalemia and hyponatremia. Follow up labs tomorrow and supplement as necessary. He may be at risk of SIADH given the fall and hit to his head. 9. DVT prophylaxis. Continue with heparin subcutaneously q.8 hours. 10. Impaired mobility. He will be seen by Physical Therapy for bed mobility, transfer, gait, and stair training using a rolling walker. 11. Impaired self-care. He will be seen by Occupational Therapy for ADL training and equipment evaluation. 12. Advance directives. He would like to be DNR, which he currently is. His is healthcare proxy if he cannot make decisions from himself. ESTIMATED LENGTH OF STAY: Two weeks, then return to home with his . He will be discussed with interdisciplinary plan of care meeting tomorrow. [id number]/CPS #: [id number] VISHAL
[2017-01-24] MEDS: Heparin VIAL(*) 5000 UNITS/ML VIAL (FIVE THOUSAND) SUBCUT SCH (22:25)
[2017-01-25] MEDS: levETIRAcetam TAB* 500 MG PO SCH ×2 (08:50→19:50)
[2017-01-25] MEDS: Omeprazole CAP* 20 MG PO SCH (08:54)
[2017-01-25] MEDS: Aspirin EC Low Dose* 81 MG TAB.EC PO SCH (08:54)
[2017-01-25] MEDS: Metoprolol Tartrate TAB* 25 MG PO SCH (08:54)
[2017-01-25] MEDS: Losartan TAB* 25 MG PO SCH ×2 (08:54→19:51)
[2017-01-25] MEDS: Heparin VIAL(*) 5000 UNITS/ML VIAL (FIVE THOUSAND) SUBCUT SCH ×3 (08:55→21:44)
[2017-01-25 09:20] LABS: Hematocrit 44 % (42-52); Hemoglobin 14.7 g/dl (14.0-18.0); Mean Corpuscular HGB Conc 34 g/dl (31-36); Mean Corpuscular Hemoglobin 31 pg (27-31); Mean Corpuscular Volume 91 fL (80-94); Mean Platelet Volume 7 um3 (7.4-10.4); Red Cell Distribution Width 13 % (10.5-15); White Blood Count 8.6 10^3/ul (3.5-10.8)
[2017-01-25 09:37] LABS: Albumin 3.7 g/dL (3.2-5.2); BUN/Creatinine Ratio 17.4 (8-20); Calcium 9.3 mg/dL (8.6-10.3); EGFR African American 99.6 (>60); EGFR Non-African American 77.5 (>60); Globulin 2.5 g/dL (2-4); Total Bilirubin 0.9 mg/dL (0.2-1.0); Total Protein 6.2 g/dL (6.4-8.9)
--- NOTE | 2017-01-25 11:35 | PMRUTEAM ---
PMRU: Goals Current Status: Nursing: Current Status Skin Deviations [head] Bruise,Incision Skin Deviation Description [ multiple bruises on his face and incision on his head] posterior head Physical Therapy: Current Status Bed Mobility Assistance max assist Transfer Moblility Assistance max assist Ambulation Assistance max assist x2 Ambulation Assistive Devices Rolling Walker Stairs Assistance Not Tested Stairs Recommended Devices One Rail Number of Stairs 3-4 OCCUPATIONAL THERAPY: CURRENT STATUS - maximum assistance for functional transfer, bathing, toileting, dressing. Eats with supervision. SPEECH THERAPY: CURRENT STATUS - Impaired moderately in cognitive linguistic tasks including memory, impulsivity, sequencing. Requires soft diet and nectar thick liquids. Social Work: Current Status Discharge Plan return home with home care svs and family support Potential for Family Training pt's family is involved and attentive Anticipated Discharge Home Destination Discharge With VNS and family support Goals: Nutrition: Goals Intervention Goals 1. Adequate PO intake to maintain current wt 2. Bowel regularity without difficulty chewing/ swallowing 3. Vitamin B-12 will increase at next lab draw 4. Pt will tolerate least restrictive consistency of PO intake without difficulty chewing or swallowing PHYSICAL THERAPY: INITIAL GOALS - supervision bed mobility, transfers and ambulation 150 ft with rolling walker. 5 stairs with 2 rails and supervision. OCCUPATIONAL THERAPY: INITIAL GOALS - independent eating. supervision bathing, dressing, toileting. Speech: Goals Speech Goal 1 Patient will safely tolerate least restrictive diet. Speech Evaluation Status Goal Soft solids and nectar-thick liquids 1 Speech Current Status Goal 1 Soft solids and nectar-thick liquids Goal 1 Comments LTO: Patient will safely tolerate least restrictive diet. ST) Patient will complete swallowing exercises with minimal cues. 2) Patient will safely tolerate 10/10 PO trials of thin liquids without clinical s/s of aspiration/ penetration. Speech Goal 2 See below Speech Goal 2 Evaluation 0% for delayed memory; 50% sequencing Status Speech Goal 2 Current Status 0% for delayed memory; 50% sequencing Speech Goal 2 Comments LTO: Patient will complete cognitive-linguistic tasks with at least 90% accuracy, given minimal cues or use of compensatory strategies. ST) Patient will recall 4/4 memory strategies 2) Patient will complete delayed memory task with at least 90% accuracy 3) Patient will accurately sequence functional tasks with at least 90% accuracy, given minimal cues. 4) Patient will state viable solutions to functional problem solving tasks with at leat 90% accuracy, given minimal cues. Social Work: Goals Discharge Plan return home with home care svs and family support Potential for Family Training pt's family is involved and attentive Anticipated Discharge Home Destination Discharge With VNS and family support Care Plan: Care Plan Communication-Improve/Maintain Start: 01/25/17 04:46 Freq: QSHIFT Status: Active Target: Activity Type Activity Date Activity User E-Sign Co-Sign Detail Recorded Client Recorded Date Recorded By Document 01/25/17 04:48 [id number] [email or web address] 01/25/17 04:51 [id number] 01/25/17 04:48 PMRU Outcome: Communication/Cognitive Status Outcome/Goals Use Comm Tools/ Devices Makes Needs Known Effectively Coping/Psych-Improve/Maintain Start: 01/25/17 04:46 Freq: QSHIFT Status: Active Target: Activity Type Activity Date Activity User E-Sign Co-Sign Detail Recorded Client Recorded Date Recorded By Document 01/25/17 04:48 [id number] [email or web address] 01/25/17 04:51 [id number] 01/25/17 04:48 PMRU Outcome: Coping/Psychosocial Coping Outcome/Goals Verbalization of Acceptance of Rehab Admit Verbalization of Sense of Control Over Health Status Utilization of Appropriate Problem Solving Techniques Willingness to Participate in Treatment Plan and Basic Needs Utilization of Available Support Systems Absence of Destructive Behavior to Self/Others Psychosocial Outcome/Goals Maintain/ Improve Emotional Health Demonstrates Knowledge of Healthy Coping Mechanisms Available Cooperate/ Participate in Plan DVT Prophylaxis- Improve/Maintain Start: 01/25/17 04:46 Freq: QSHIFT Status: Active Target: Activity Type Activity Date Activity User E-Sign Co-Sign Detail Recorded Client Recorded Date Recorded By Document 01/25/17 04:48 [id number] [email or web address] 01/25/17 04:51 [id number] 01/25/17 04:48 PMRU Outcome: DVT Prophylaxis Outcome/Goals Remains Free of DVT Free of complications from current DVT TEDS Stockings on Every AM, Off at HS Discharge Planning - Improve/Maintain Start: 01/25/17 04:46 Freq: QSHIFT Status: Active Target: Activity Type Activity Date Activity User E-Sign Co-Sign Detail Recorded Client Recorded Date Recorded By Document 01/25/17 04:48 [id number] [email or web address] 01/25/17 04:51 [id number] 01/25/17 04:48 PMRU Outcome: Discharge Planning Update Patient Family No Outcome/Goals Demonstrates Understanding of Discharge Plan Education-Improve/Maintain Start: 01/25/17 04:46 Freq: QSHIFT Status: Active Target: Activity Type Activity Date Activity User E-Sign Co-Sign Detail Recorded Client Recorded Date Recorded By Document 01/25/17 04:48 [id number] [email or web address] 01/25/17 04:51 [id number] 01/25/17 04:48 PMRU Outcome: Education Outcome/Goals Demonstrate/ Verbalize Understanding of Written Discharge Instructions Encourage Questions Medication Administration Start: 01/25/17 04:46 Freq: QSHIFT Status: Active Target: Activity Type Activity Date Activity User E-Sign Co-Sign Detail Recorded Client Recorded Date Recorded By Document 01/25/17 04:48 [id number] [email or web address] 01/25/17 04:51 [id number] 01/25/17 04:48 PMRU Outcome: Medication Administration Assess Patient Knowledge/Teach Med No Education for all Meds Is Patient Going Home on Lovenox? No Neurological- Improve/Maintain Start: 01/25/17 04:46 Freq: QSHIFT Status: Active Target: Activity Type Activity Date Activity User E-Sign Co-Sign Detail Recorded Client Recorded Date Recorded By Document 01/25/17 04:48 [id number] 01/25/17 04:51 [id number] 01/25/17 04:48 PMRU Outcome: Neurological Weakness/Aphasia Weakness Outcome/Goals Maintain/ Achieve Baseline Neurological Status Improve Neurological Status Maintain/ Improve Strength/ROM Pain/Comfort- Improve/Maintain Start: 01/25/17 04:46 Freq: QSHIFT Status: Active Target: Activity Type Activity Date Activity User E-Sign Co-Sign Detail Recorded Client Recorded Date Recorded By Document 01/25/17 04:48 [id number] [email or web address] 01/25/17 04:51 [id number] 01/25/17 04:48 PMRU Outcome: Pain/Comfort Outcome/Goals Demonstrates Knowledge and Use of Available Comfort Measures Maintain Comfort Level Allowing Patient to Fully Participate in Rehab Safety- Improve/Maintain Start: 01/25/17 04:46 Freq: QSHIFT Status: Active Target: Activity Type Activity Date Activity User E-Sign Co-Sign Detail Recorded Client Recorded Date Recorded By Document 01/25/17 04:48 [id number] [email or web address] 01/25/17 04:51 [id number] 01/25/17 04:48 PMRU Outcome: Safety Outcome/Goals Remain Free of Injury or Harm Cooperates with Safety Measures for Least Restrictive Environment Prevent Falls/ Injury Equipment Needed Medicine Note: Length of Stay: [3 weeks] Anticipated Discharge Destination: Home Tentative Discharge Date: [02/14/17] Discharged to: [home with family support]
[2017-01-25] MEDS: Azithromycin TAB* 250 MG PO SCH (12:34)
[2017-01-25] MEDS: CEFUROXIME 250 MG PO SCH ×2 (12:34→19:50)
[2017-01-25] MEDS: Docusate CAP* 100 MG PO SCH ×2 (12:34→19:47)
[2017-01-25] MEDS: Mirtazapine TAB* 15 MG PO SCH (19:47)
[2017-01-25] MEDS: Tamsulosin CAP* 0.4 MG PO SCH (19:49)
[2017-01-26] MEDS: Ibuprofen TAB* 200 MG PO PRN ×2 (00:09→11:38)
[2017-01-26] MEDS: Heparin VIAL(*) 5000 UNITS/ML VIAL (FIVE THOUSAND) SUBCUT SCH ×3 (06:34→20:56)
[2017-01-26] MEDS: Omeprazole CAP* 20 MG PO SCH (06:35)
[2017-01-26] MEDS: Azithromycin TAB* 250 MG PO SCH (08:51)
[2017-01-26] MEDS: levETIRAcetam TAB* 500 MG PO SCH ×2 (08:51→20:40)
[2017-01-26] MEDS: Losartan TAB* 25 MG PO SCH ×2 (08:52→20:40)
[2017-01-26] MEDS: Metoprolol Tartrate TAB* 25 MG PO SCH (08:52)
[2017-01-26] MEDS: Aspirin EC Low Dose* 81 MG TAB.EC PO SCH (08:52)
[2017-01-26] MEDS: Docusate CAP* 100 MG PO SCH ×2 (08:52→20:40)
[2017-01-26] MEDS: CEFUROXIME 250 MG PO SCH ×2 (08:52→20:40)
[2017-01-26] MEDS: Magnesium Hydroxide LIQ* 30 ML UDC PO PRN (11:38)
[2017-01-26] MEDS: Mirtazapine TAB* 15 MG PO SCH (20:40)
[2017-01-26] MEDS: Tamsulosin CAP* 0.4 MG PO SCH (20:40)
[2017-01-27] MEDS: Heparin VIAL(*) 5000 UNITS/ML VIAL (FIVE THOUSAND) SUBCUT SCH ×3 (05:36→22:20)
[2017-01-27] MEDS: Omeprazole CAP* 20 MG PO SCH (05:36)
[2017-01-27] MEDS: Azithromycin TAB* 250 MG PO SCH (09:04)
[2017-01-27] MEDS: Aspirin EC Low Dose* 81 MG TAB.EC PO SCH (09:05)
[2017-01-27] MEDS: levETIRAcetam TAB* 500 MG PO SCH ×2 (09:06→22:19)
[2017-01-27] MEDS: Losartan TAB* 25 MG PO SCH ×2 (09:06→22:19)
[2017-01-27] MEDS: Metoprolol Tartrate TAB* 25 MG PO SCH (09:06)
[2017-01-27] MEDS: Docusate CAP* 100 MG PO SCH ×2 (09:18→22:19)
[2017-01-27] MEDS: CEFUROXIME 250 MG PO SCH ×2 (09:18→22:27)
[2017-01-27] MEDS ORDERED: Albuterol 2.5 MG/3 ML NEB.SOL* (0.083%) INH PRN (10:42)
[2017-01-27] MEDS: Tamsulosin CAP* 0.4 MG PO SCH (22:20)
[2017-01-27] MEDS: Mirtazapine TAB* 15 MG PO SCH (22:20)
[2017-01-28] MEDS: Omeprazole CAP* 20 MG PO SCH (06:46)
[2017-01-28] MEDS: Heparin VIAL(*) 5000 UNITS/ML VIAL (FIVE THOUSAND) SUBCUT SCH ×3 (06:46→22:08)
[2017-01-28] MEDS: Docusate CAP* 100 MG PO SCH ×3 (07:59→20:20)
[2017-01-28] MEDS: Azithromycin TAB* 250 MG PO SCH (07:59)
[2017-01-28] MEDS: Metoprolol Tartrate TAB* 25 MG PO SCH (07:59)
[2017-01-28] MEDS: CEFUROXIME 250 MG PO SCH ×2 (07:59→20:19)
[2017-01-28] MEDS: Losartan TAB* 25 MG PO SCH ×2 (07:59→20:20)
[2017-01-28] MEDS: Aspirin EC Low Dose* 81 MG TAB.EC PO SCH (08:00)
[2017-01-28] MEDS: levETIRAcetam TAB* 500 MG PO SCH ×2 (08:13→20:19)
--- NOTE | 2017-01-28 12:41 | PMRUTEAM ---
PMRU: Goals Current Status: Nursing: Current Status Skin Deviations [head] Other Skin Deviation Description [ incision closed clean and intact head] Nutrition Current Status adequate Physical Therapy: Current Status Bed Mobility Assistance Min Assist,Mod Assist Transfer Moblility Assistance Contact Guard Assist,Min Assist Transfer/Bed Mobility Rolling Walker Recommended Devices Ambulation Assistance Contact Guard Assist Ambulation Assistive Devices Rolling Walker Number of Feet Patient 70' Ambulated Stairs Assistance Not Tested Stairs Recommended Devices Two Rails Number of Stairs 3-4 Manual Wheelchair Control/ Bilateral UE/Bilateral LE Technique Wheelchair Propulsion Ability Minimum Assistance Wheelchair Distance (ft) 70 Objective Comments Pt tends to move too fast with exercises and hamilton snot attain full ROM. With further instruction and demo this was better. Walking distance earlier was 70 but painstakingly slow due to shuffle of feet. Focus in // bars was to increase stride length. Occupational Therapy: Current Status Upper Body Dressing Mod Assist,Max Asst Lower Body Dressing Total Assist Bathing Mod Assist Toileting Total Assist Toilet Transfer Mod Assist Shower Transfer Progress TBA Eating Supervision Eating Progress setup, needs encouragement Rec Therapy: Current Status Summary of Assessment and Met with patient to introduce self and leisure Clinical Impression interests. This ticket writer asked patient questions about his interests. Patient stated he watches TV at home and enjoys spending time with friends but declined to answer other questions about his leisure lifestyle stating "it's personal." Treatment Goals Patient will engage in leisure activities while on the unit. Treatment Plan Provide and encourage involvement in RT services. Social Work: Current Status Discharge Plan return home with home care svs and family support Potential for Family Training pt's family is involved and supportive Anticipated Discharge Home Destination Discharge With home care svs and family support Speech: Current Status Assessment Patient demonstrated clinical s/s of aspiration/ penetration on 3/5 PO trials of thin water. Patient reported coughing while eating scrambled eggs this morning. Recommend continued diet of nectar-thick liquids with soft solids and puree scrambled eggs. Patient completed delayed recall task with 66% accuracy; he has difficulty with distractions present in time lapse. Recommend continued skilled IMAGING TECHNICIAN services targeting swallowing dysfunction and cognitive-linguistic training for improved safety, function and independence for daily living tasks. Goals: Physical Therapy: Initial Goals Bed Mobility Assistance Supervision Transfer Mobility Assistance Supervision Transfer/Bed Mobility Rolling Walker Recommended Devices Ambulation Supervision Ambulation Recommended Devices Rolling Walker Ambulation Distance 150 Stairs Assistance Contact Guard Assist Stair Recommended Devices Two Rails Physical Therapy: Updated Goals Transfer/Bed Mobility Rolling Walker Recommended Devices Occupational Therapy: Initial Goals Goals to be Completed in (Days 21 ) Upper Body Bathing Routine Supervision/Set Up Lower Body Bathing Routine Supervision/Set Up Upper Body Dressing Routine Supervision/Set Up Lower Body Dressing Routine Supervision/Set Up Toilet Hygeine and Clothing Modified Independent with Management Routine Toilet Transfer Routine Modified Independent with Step-In Shower Transfer Supervision/Set Up Routine Tub Transfer Routine Supervision/Set Up Functional Transfers for ADL Modified Independent with Grooming Routine Independent Feeding Routine Independent Light Housekeeping Tasks Supervision/Set Up Nursing: Goals Nutrition Goal excellent Nutrition: Goals Intervention Goals 1. Adequate PO intake to maintain current wt 2. Bowel regularity without difficulty chewing/ swallowing 3. Vitamin B-12 will increase at next lab draw 4. Pt will tolerate least restrictive consistency of PO intake without difficulty chewing or swallowing Speech: Goals Speech Goal 1 Patient will safely tolerate least restrictive diet. Speech Evaluation Status Goal Soft solids and nectar-thick liquids 1 Speech Current Status Goal 1 Soft solids and nectar-thick liquids Goal 1 Comments LTO: Patient will safely tolerate least restrictive diet. ST) Patient will complete swallowing exercises with minimal cues. Status: *Patient stated he did not remember doing swallowing exercises the preivous day. Re-taught and educated patient on Oliva, Fariha, and Super-supraglottic swallowing targeting base of tongue strengthening, laryngeal excursion, and timing of swallow, respectively. IMAGING TECHNICIAN provided model and HEP handout. Patient completed Oliva exercise x10, Fariha x10, and Supre- supraglottic exercise x5 with moderate verbal cues from IMAGING TECHNICIAN. 2) Patient will safely tolerate 10/10 PO trials of thin liquids without clinical s/s of aspiration/ penetration. *When asked if patient coughed while eating scrambled eggs during breakfast, the patient replied "maybe a little". Discussed with patient having eggs pureed. * Patient safely tolerated 2 trials of nectar- thick liquid without s/s of aspiration/penetration . * Patient given 5 trials of thin water via sip by cup. No clinical s/s of aspiration/pentration were noted for 2/5 trials, however a throat clear and a wet vocal quality were noted for 3/5 trials. Recommend continued nectar-thick liquids. Speech Goal 2 See below Speech Goal 2 Evaluation 0% for delayed memory; 50% sequencing Status Speech Goal 2 Current Status 0% for delayed memory; 50% sequencing independently Speech Goal 2 Comments LTO: Patient will complete cognitive-linguistic tasks with at least 90% accuracy, given minimal cues or use of compensatory strategies. ST) Patient will recall 4/4 memory strategies Status: *Patient educated on memory strategies; he requires handout to recall more than 2 strategies. 2) Patient will complete delayed memory task with at least 90% accuracy Status: *Attempted to use memory strategy of writing information down, however patient had difficulty with writing legibly and reading his handwriting. *Patient recalled 3 words, given a minute delay, with 66% accuracy, when using repetition memory strategy. Patient has difficulty with distractions are present during the time lapse. 3) Patient will accurately sequence functional tasks with at least 90% accuracy, given minimal cues. Status: *Patient sequenced 4 pictures of a functional task (i.e. brushing teeth), with 50% accuracy independently. He required moderate verbal cues to accurately sequence pictures. When provided with pictures that he completed last session, accuracy increased to 100% independently. 4) Patient will state viable solutions to functional problem solving tasks with at leat 90% accuracy, given minimal cues. Status: Goal not directly targeted this date; goal ongoing. Social Work: Goals Discharge Plan return home with home care svs and family support Potential for Family Training pt's family is involved and supportive Anticipated Discharge Home Destination Discharge With home care svs and family support Care Plan: Care Plan ADL's - Improve/Maintain Start: 01/25/17 04:46 Freq: DAILY Status: Active Target: Activity Type Activity Date Activity User E-Sign Co-Sign Detail Recorded Client Recorded Date Recorded By Document 01/27/17 11:52 [id number] [id number] 01/27/17 11:52 [id number] 01/27/17 11:52 PMRU Outcome: ADL's/ADL Transfers Orders/Interventions Occupational Therapy Evaluation & Treatment Device RW and gait belt, BSC Patient to receive OT 5x/wk for 60-120 Therex min/day Self Care Management Group Therapy Neuromuscular ReEducation UE/LE ADL's with Assist Yes ADL Transfers with Assist Yes Toileting: Transfers,Clothing Management Yes ,Hygeine w/Assist Light Kitchen/Laundry w/Assist Yes Progression Toward Outcome/Goals Progressing Outcome/Goals Met Pt participated well in ADL tx session. Increased independence with sit to stand, pleasant throughout, required increased time and v/c's, simple command follow. Communication-Improve/Maintain Start: 01/25/17 04:46 Freq: DAILY Status: Active Target: Activity Type Activity Date Activity User E-Sign Co-Sign Detail Recorded Client Recorded Date Recorded By Document 01/28/17 11:33 [id number] 01/28/17 11:33 [id number] 01/28/17 11:33 PMRU Outcome: Communication/Cognitive Status Outcome/Goals Use Comm Tools/ Devices Makes Needs Known Effectively Other Outcomes/Goals 1) Safely tolerate least restrictive diet 2) Improve cognitive- linguistic skills for increased funciton, independence, and safety. Progression Toward Outcomes/Goals Progressing Outcome/Goals Met Comment Pt demonstrated clinical s/s of aspiration/ penetration on 3/5 PO trials of thin water. Pt demonstrated 66 % accuracy for delayed recall task. Coping/Psych-Improve/Maintain Start: 01/25/17 04:46 Freq: DAILY Status: Active Target: Activity Type Activity Date Activity User E-Sign Co-Sign Detail Recorded Client Recorded Date Recorded By Document 01/28/17 10:48 [id number] [id number] 01/28/17 10:48 [id number] 01/28/17 10:48 PMRU Outcome: Coping/Psychosocial Coping Outcome/Goals Verbalization of Acceptance of Rehab Admit Verbalization of Sense of Control Over Health Status Utilization of Appropriate Problem Solving Techniques Willingness to Participate in Treatment Plan and Basic Needs Utilization of Available Support Systems Absence of Destructive Behavior to Self/Others Psychosocial Outcome/Goals Maintain/ Improve Emotional Health Demonstrates Knowledge of Healthy Coping Mechanisms Available Cooperate/ Participate in Plan Progression Toward Outcome/Goals - Progressing Coping Progression Toward Outcome/Goals - Progressing Psychosocial Coping Outcome/Goals Met Demonstrates Understanding of Rehab Admit and Goal Setting Process Performs Actions to Reduce Fear and Anxiety Performs Actions to Reduce Pain and Prevent Complications Psychosocial Outcome/Goals Met Maintain/ Improved Emotional Health DVT Prophylaxis- Improve/Maintain Start: 01/25/17 04:46 Freq: DAILY Status: Active Target: Activity Type Activity Date Activity User E-Sign Co-Sign Detail Recorded Client Recorded Date Recorded By Document 01/28/17 10:48 [id number] 01/28/17 10:48 [id number] 01/28/17 10:48 PMRU Outcome: DVT Prophylaxis Outcome/Goals Remains Free of DVT Free of complications from current DVT TEDS Stockings on Every AM, Off at HS Progression Toward Outcome/Goals Progressing Outcome/Goals Met Remains Free of DVT Free of complications from current DVT TEDS Stockings on Every AM, Off at HS Discharge Planning - Improve/Maintain Start: 01/25/17 04:46 Freq: DAILY Status: Active Target: Activity Type Activity Date Activity User E-Sign Co-Sign Detail Recorded Client Recorded Date Recorded By Document 01/28/17 02:08 [id number] [id number] 01/28/17 02:08 [id number] 01/28/17 02:08 PMRU Outcome: Discharge Planning Update Patient Family No Outcome/Goals Demonstrates Understanding of Discharge Plan Progression Toward Outcome/Goals Not Progressing Education-Improve/Maintain Start: 01/25/17 04:46 Freq: DAILY Status: Active Target: Activity Type Activity Date Activity User E-Sign Co-Sign Detail Recorded Client Recorded Date Recorded By Document 01/28/17 10:48 [id number] [id number] 01/28/17 10:48 [id number] 01/28/17 10:48 PMRU Outcome: Education Outcome/Goals Demonstrate/ Verbalize Understanding of Written Discharge Instructions Encourage Questions Progression Toward Outcome/Goals Progressing Outcome/Goals Met Comment sleeping Medication Administration Start: 01/25/17 04:46 Freq: DAILY Status: Active Target: Activity Type Activity Date Activity User E-Sign Co-Sign Detail Recorded Client Recorded Date Recorded By Document 01/28/17 10:48 [id number] 01/28/17 10:48 [id number] 01/28/17 10:48 PMRU Outcome: Medication Administration Assess Patient Knowledge/Teach Med No Education for all Meds Is Patient Going Home on Lovenox? No Mobility- Improve/Maintain Start: 01/25/17 04:46 Freq: DAILY Status: Active Target: Activity Type Activity Date Activity User E-Sign Co-Sign Detail Recorded Client Recorded Date Recorded By Document 01/27/17 12:38 [id number] [id number] 01/27/17 12:38 [id number] 01/27/17 12:38 PMRU Outcome: Mobility Physical Therapy Evaluation and Yes Treatment Activity OOB with Assistance Yes WBAT Yes Assistance Yes Patient to be seen 5x/wk for 60-120 min/ Therex day for: Mobility Training Gait Training W/C Mobility Balance Outcome/Goals Maintain/ Achieve Baseline Mobility Status Improve Mobility Status Demonstrates Proper Use of Assistive Devices Free from Complications of Immobility Progression Toward Outcome/Goals Progressing Bed Mobility Yes: independent Transfers Yes: supervision with RW Gait x ft Yes: supervison with RW to 150 ' Up/Down Stairs Yes: CGA+1 with 2 rails. Neurological- Improve/Maintain Start: 01/25/17 04:46 Freq: DAILY Status: Active Target: Activity Type Activity Date Activity User E-Sign Co-Sign Detail Recorded Client Recorded Date Recorded By Document 01/28/17 10:48 [id number] [id number] 01/28/17 10:48 [id number] 01/28/17 10:48 PMRU Outcome: Neurological Weakness/Aphasia Weakness Outcome/Goals Maintain/ Achieve Baseline Neurological Status Improve Neurological Status Maintain/ Improve Strength/ROM Progression Toward Outcome/Goals Progressing Outcome/Goals Met Maintain/ Achieve Baseline Neurological Status Improve Neurological Status Pain/Comfort- Improve/Maintain Start: 01/25/17 04:46 Freq: DAILY Status: Active Target: Activity Type Activity Date Activity User E-Sign Co-Sign Detail Recorded Client Recorded Date Recorded By Document 01/28/17 10:48 [id number] 01/28/17 10:48 [id number] 01/28/17 10:48 PMRU Outcome: Pain/Comfort Outcome/Goals Demonstrates Knowledge and Use of Available Comfort Measures Maintain Comfort Level Allowing Patient to Fully Participate in Rehab Progression Toward Outcome/Goals Progressing Outcome/Goals Met Demonstrates Knowledge and Use of Available Comfort Measures Maintain Comfort Level Allowing Patient to Fully Participate in Rehab Outcome/Goals Met Comment pt declined pain Safety- Improve/Maintain Start: 01/25/17 04:46 Freq: DAILY Status: Active Target: Activity Type Activity Date Activity User E-Sign Co-Sign Detail Recorded Client Recorded Date Recorded By Document 01/28/17 10:48 [id number] [id number] 01/28/17 10:48 [id number] 01/28/17 10:48 PMRU Outcome: Safety Outcome/Goals Remain Free of Injury or Harm Cooperates with Safety Measures for Least Restrictive Environment Prevent Falls/ Injury Equipment Needed Progression Toward Outcome/Goals Progressing Outcome/Goals Met Remain Free of Injury or Harm Cooperates with Safety Measures for Least Restrictive Environment Prevent Falls/ Injury Equipment Needed Outcome/Goals Met Comment [address] Medicine Note: Length of Stay: 2 1/2 weeks Anticipated Discharge Destination: Home Tentative Discharge Date: 02/14/17 Discharged to: Home
[2017-01-28] MEDS: Mirtazapine TAB* 15 MG PO SCH (20:19)
[2017-01-28] MEDS: Tamsulosin CAP* 0.4 MG PO SCH (20:19)
[2017-01-28] MEDS: Acetaminophen TAB* 325 MG PO PRN (23:48)
[2017-01-29] MEDS: Heparin VIAL(*) 5000 UNITS/ML VIAL (FIVE THOUSAND) SUBCUT SCH ×3 (04:54→21:26)
[2017-01-29] MEDS: Omeprazole CAP* 20 MG PO SCH (04:55)
[2017-01-29 06:18] LABS: Hematocrit 40 % (42-52); Hemoglobin 13.3 g/dl (14.0-18.0); Mean Corpuscular HGB Conc 33 g/dl (31-36); Mean Corpuscular Hemoglobin 30 pg (27-31); Mean Corpuscular Volume 91 fL (80-94); Mean Platelet Volume 7 um3 (7.4-10.4); Red Blood Count 4.39 10^6/ul (4.0-5.4); Red Cell Distribution Width 13 % (10.5-15); White Blood Count 5.8 10^3/ul (3.5-10.8)
[2017-01-29 06:43] LABS: Albumin 3.2 g/dL (3.2-5.2); BUN/Creatinine Ratio 22.9 (8-20); Calcium 8.9 mg/dL (8.6-10.3); EGFR African American 85.5 (>60); EGFR Non-African American 66.5 (>60); Globulin 2.3 g/dL (2-4); Total Bilirubin 0.4 mg/dL (0.2-1.0); Total Protein 5.5 g/dL (6.4-8.9)
[2017-01-29] MEDS: levETIRAcetam TAB* 500 MG PO SCH ×2 (08:45→21:20)
[2017-01-29] MEDS: Metoprolol Tartrate TAB* 25 MG PO SCH (08:45)
[2017-01-29] MEDS: Aspirin EC Low Dose* 81 MG TAB.EC PO SCH (08:45)
[2017-01-29] MEDS: Docusate CAP* 100 MG PO SCH ×2 (08:45→20:06)
[2017-01-29] MEDS: CEFUROXIME 250 MG PO SCH ×2 (08:46→21:21)
[2017-01-29] MEDS: Losartan TAB* 25 MG PO SCH ×2 (08:46→21:21)
[2017-01-29] MEDS: Azithromycin TAB* 250 MG PO SCH (08:46)
[2017-01-29] MEDS: Tamsulosin CAP* 0.4 MG PO SCH (21:20)
[2017-01-29] MEDS: Mirtazapine TAB* 15 MG PO SCH (21:21)
[2017-01-30] MEDS: Heparin VIAL(*) 5000 UNITS/ML VIAL (FIVE THOUSAND) SUBCUT SCH ×3 (05:12→21:11)
[2017-01-30] MEDS: Omeprazole CAP* 20 MG PO SCH (05:13)
[2017-01-30] MEDS: Metoprolol Tartrate TAB* 25 MG PO SCH (09:27)
[2017-01-30] MEDS: Losartan TAB* 25 MG PO SCH ×2 (09:27→21:09)
[2017-01-30] MEDS: levETIRAcetam TAB* 500 MG PO SCH ×2 (09:27→21:09)
[2017-01-30] MEDS: Docusate CAP* 100 MG PO SCH ×2 (09:28→21:09)
[2017-01-30] MEDS: Aspirin EC Low Dose* 81 MG TAB.EC PO SCH (09:28)
[2017-01-30] MEDS: Mirtazapine TAB* 15 MG PO SCH (21:09)
[2017-01-30] MEDS: Tamsulosin CAP* 0.4 MG PO SCH (21:09)
[2017-01-31] MEDS: Omeprazole CAP* 20 MG PO SCH (05:53)
[2017-01-31] MEDS: Heparin VIAL(*) 5000 UNITS/ML VIAL (FIVE THOUSAND) SUBCUT SCH ×3 (05:53→21:02)
[2017-01-31] MEDS: Metoprolol Tartrate TAB* 25 MG PO SCH (07:35)
[2017-01-31] MEDS: Aspirin EC Low Dose* 81 MG TAB.EC PO SCH (07:36)
[2017-01-31] MEDS: Docusate CAP* 100 MG PO SCH ×2 (07:36→20:57)
[2017-01-31] MEDS: Losartan TAB* 25 MG PO SCH ×2 (07:36→20:58)
[2017-01-31] MEDS: levETIRAcetam TAB* 500 MG PO SCH ×2 (07:36→20:57)
[2017-01-31] MEDS: Mirtazapine TAB* 15 MG PO SCH (20:57)
[2017-01-31] MEDS: Tamsulosin CAP* 0.4 MG PO SCH (20:57)
[2017-02-01] MEDS: Ibuprofen TAB* 200 MG PO PRN (01:13)
[2017-02-01] MEDS: Heparin VIAL(*) 5000 UNITS/ML VIAL (FIVE THOUSAND) SUBCUT SCH ×3 (05:29→21:32)
[2017-02-01] MEDS: Omeprazole CAP* 20 MG PO SCH (06:50)
[2017-02-01] MEDS: Aspirin EC Low Dose* 81 MG TAB.EC PO SCH (08:32)
[2017-02-01] MEDS: Docusate CAP* 100 MG PO SCH ×2 (08:32→21:32)
[2017-02-01] MEDS: Metoprolol Tartrate TAB* 25 MG PO SCH (08:32)
[2017-02-01] MEDS: levETIRAcetam TAB* 500 MG PO SCH ×2 (08:32→21:32)
[2017-02-01] MEDS: Losartan TAB* 25 MG PO SCH ×2 (08:32→21:32)
[2017-02-01] MEDS: Tamsulosin CAP* 0.4 MG PO SCH (21:32)
[2017-02-01] MEDS: Mirtazapine TAB* 15 MG PO SCH (21:32)
[2017-02-02] MEDS: Omeprazole CAP* 20 MG PO SCH (05:01)
[2017-02-02] MEDS: Heparin VIAL(*) 5000 UNITS/ML VIAL (FIVE THOUSAND) SUBCUT SCH ×3 (05:02→20:55)
[2017-02-02] MEDS: Acetaminophen TAB* 325 MG PO PRN ×2 (07:17→23:29)
[2017-02-02] MEDS: Losartan TAB* 25 MG PO SCH ×2 (09:06→20:55)
[2017-02-02] MEDS: Docusate CAP* 100 MG PO SCH ×2 (09:06→20:55)
[2017-02-02] MEDS: levETIRAcetam TAB* 500 MG PO SCH ×2 (09:06→20:55)
[2017-02-02] MEDS: Aspirin EC Low Dose* 81 MG TAB.EC PO SCH (09:06)
[2017-02-02] MEDS: Metoprolol Tartrate TAB* 25 MG PO SCH (09:06)
[2017-02-02] MEDS: Tamsulosin CAP* 0.4 MG PO SCH (20:55)
[2017-02-02] MEDS: Mirtazapine TAB* 15 MG PO SCH (20:55)
[2017-02-03] MEDS: Heparin VIAL(*) 5000 UNITS/ML VIAL (FIVE THOUSAND) SUBCUT SCH ×3 (06:22→21:07)
[2017-02-03] MEDS: Omeprazole CAP* 20 MG PO SCH (06:22)
[2017-02-03] MEDS: levETIRAcetam TAB* 500 MG PO SCH ×2 (08:06→20:23)
[2017-02-03] MEDS: Metoprolol Tartrate TAB* 25 MG PO SCH (08:06)
[2017-02-03] MEDS: Aspirin EC Low Dose* 81 MG TAB.EC PO SCH (08:06)
[2017-02-03] MEDS: Docusate CAP* 100 MG PO SCH ×2 (08:06→20:23)
[2017-02-03] MEDS: Losartan TAB* 25 MG PO SCH ×2 (08:06→20:23)
[2017-02-03] MEDS: Tamsulosin CAP* 0.4 MG PO SCH (20:23)
[2017-02-03] MEDS: Mirtazapine TAB* 15 MG PO SCH (20:23)
[2017-02-04] MEDS: Omeprazole CAP* 20 MG PO SCH (05:36)
[2017-02-04] MEDS: Heparin VIAL(*) 5000 UNITS/ML VIAL (FIVE THOUSAND) SUBCUT SCH ×3 (05:36→21:12)
[2017-02-04] MEDS: Losartan TAB* 25 MG PO SCH ×2 (08:18→20:28)
[2017-02-04] MEDS: levETIRAcetam TAB* 500 MG PO SCH ×2 (08:18→20:27)
[2017-02-04] MEDS: Docusate CAP* 100 MG PO SCH ×2 (08:18→20:27)
[2017-02-04] MEDS: Aspirin EC Low Dose* 81 MG TAB.EC PO SCH (08:18)
[2017-02-04] MEDS: Metoprolol Tartrate TAB* 25 MG PO SCH (08:18)
--- NOTE | 2017-02-04 12:39 | PMRUTEAM ---
PMRU: Goals Current Status: Nursing: Current Status Skin Deviations [head] Incision Skin Deviations [Face] Abrasion Skin Deviation Description [ incision closed clean and intact head] Skin Deviation Description [ scabbed, healing Face] Bladder Current Status incontinent, continent at times Bowel Current Status rings for br Nutrition Current Status adequate Physical Therapy: Current Status Bed Mobility Assistance Supervision Transfer Moblility Assistance Supervision Transfer/Bed Mobility Rolling Walker Recommended Devices Ambulation Assistance Supervision Ambulation Assistive Devices Rolling Walker Number of Feet Patient 150' Ambulated Stairs Assistance Contact Guard Assist Stairs Recommended Devices Two Rails Number of Stairs 5 Manual Wheelchair Control/ Bilateral UE/Bilateral LE Technique Wheelchair Propulsion Ability Minimum Assistance Wheelchair Distance (ft) 70 Objective Comments Pt tends to move too fast with exercises and hamilton snot attain full ROM. With further instruction and demo this was better. Walking distance earlier was 70 but painstakingly slow due to shuffle of feet. Focus in // bars was to increase stride length. Occupational Therapy: Current Status Upper Body Dressing Contact Guard Assist Lower Body Dressing Max Asst Bathing Mod Assist Toileting Max Asst Toilet Transfer Min Assist Shower Transfer Mod Assist Shower Transfer Progress TBA Eating Independent Eating Progress setup, needs encouragement Rec Therapy: Current Status Summary of Assessment and RT assessment completed. Patient observed sitting Clinical Impression outside of his room during RT time. This service writer advisor has been checking in regularly with patient. Patient was more talkative after being on the unit for a few days. Patient has been declining the need for activities (has already been provided with the newspaper and magazines). Patient reports being content with being outside of his room to " watch everything." Treatment Goals Patient will engage in leisure activities while on the unit. Treatment Plan Provide and encourage involvement in RT services. Social Work: Current Status Discharge Plan return home with home care svs and family support Potential for Family Training pt's family is involved and supportive Anticipated Discharge Home Destination Discharge With home care svs and family support Nutrition: Current Status Monitoring po intake is somewhat variable, but overall appears adequate, avg ~60% of meals. He cont to dislike nectar-thick liquids, although cont to require them per SENIOR MECHANICAL DESIGN ENGINEER follow-up 02/03. Soft solids cont to be recommended, but still w/monitoring for aspiration risk. Last BM 02/02. K 4.0, BG wnl ( 97). Serum B12 level low a month ago, so monthly injections to begin 02/17. Speech: Current Status Assessment The patient presented with coughing with thin liquid via small cup sip presentations this day, which reduced with use of chin tuck; fatigue may have been a factor. Recommend continued diet of nectar-thick liquids with soft solids. The patient continued with delayed recall deficits, which improved with max cues from SENIOR MECHANICAL DESIGN ENGINEER for initial use of memory strategies. Recommend continued skilled SENIOR MECHANICAL DESIGN ENGINEER services targeting swallowing dysfunction and cognitive-linguistic training for improved safety, function and independence for daily living tasks. Goals: Physical Therapy: Initial Goals Bed Mobility Assistance Supervision Transfer Mobility Assistance Supervision Transfer/Bed Mobility Rolling Walker Recommended Devices Ambulation Supervision Ambulation Recommended Devices Rolling Walker Ambulation Distance 150 Stairs Assistance Contact Guard Assist Stair Recommended Devices Two Rails Physical Therapy: Updated Goals Bed Mobility Assistance Independent Transfer Mobility Assistance Supervision Transfer/Bed Mobility Rolling Walker Recommended Devices Ambulation Assistance Supervision Ambulation Assistive Devices Rolling Walker Ambulation Distance (ft) 150 Stairs Assistance Supervision Stairs Recommended Devices Two Rails Number of Stairs 5 Home Exercise Program Supervision Assistance Occupational Therapy: Initial Goals Goals to be Completed in (Days 21 ) Upper Body Bathing Routine Supervision/Set Up Lower Body Bathing Routine Supervision/Set Up Upper Body Dressing Routine Supervision/Set Up Lower Body Dressing Routine Supervision/Set Up Toilet Hygeine and Clothing Modified Independent with Management Routine Toilet Transfer Routine Modified Independent with Step-In Shower Transfer Supervision/Set Up Routine Tub Transfer Routine Supervision/Set Up Functional Transfers for ADL Modified Independent with Grooming Routine Independent Feeding Routine Independent Light Housekeeping Tasks Supervision/Set Up Nursing: Goals Nutrition Goal excellent Nutrition: Goals Intervention Goals 1. Adequate PO intake to maintain stable wt, hydration, and lean body mass 2. Bowel regularity without c/o constipation 3. Serum B-12 level will show improvement at next lab draw 4. Pt will tolerate least-restrictive consistencies without s/sx aspiration Speech: Goals Speech Goal 1 Patient will safely tolerate least restrictive diet. Speech Evaluation Status Goal Soft solids and nectar-thick liquids 1 Speech Current Status Goal 1 Soft solids and nectar-thick liquids Goal 1 Comments LTO: Patient will safely tolerate least restrictive diet. ST) Patient will complete swallowing exercises with minimal cues. Status: *Patient stated he did not recall completing swallowing exercises the previous date. The patient was re-taught and educated patient on Oliva Maneuver and swallowing targeting base of tongue strength and coordination. Patient completed Oliva and Fariha exercise x 8 with moderate cues for increased accuracy. 2) Patient will safely tolerate 10/10 PO trials of thin liquids without clinical s/s of aspiration/ penetration. Status: The patient presented with immediate cough x1 with thin liquid via tsp. The patient demonstrated safe po of thin liquid via tsp with verbal cues for use of chin tuck with no overt s/s of aspiration/penetration over 5 trials. The patient trialed thin liquid via cup with max cues for use of chin tuck with no overt s/s of aspiration/ penetration on 4/5 trials. The patient presented with delayed cough x1. Recommend continued nectar- thick liquids at this time. Speech Goal 2 Cognitive-linguistic Speech Goal 2 Evaluation 0% for delayed memory; 50% sequencing Status Speech Goal 2 Current Status 75% for delayed memory with max cues; 50% sequencing independently Speech Goal 2 Comments LTO: Patient will complete cognitive-linguistic tasks with at least 90% accuracy, given minimal cues or use of compensatory strategies. ST) Patient will recall 4/4 memory strategies Status: *Patient was unable to recall memory strategies at beginning of session. Re-educated patient on memory strategies; patient required handout to state memory strategies previously discussed in session. 2) Patient will complete delayed memory task with at least 90% accuracy Status: The patient recalled 3 items per 1 minute delay with max cues for use of memory strategies ( primarily association and visualization) at 75% accuracy independently, improved to 100% accuracy when given categorical cue. The patient was unable to recall items over 2 trials without cues from SENIOR MECHANICAL DESIGN ENGINEER. 3) Patient will accurately sequence functional tasks with at least 90% accuracy, given minimal cues. Status: * Goal not directly targeted this date; goal ongoing. 4) Patient will state viable solutions to functional problem solving tasks with at leat 90% accuracy, given minimal cues. Status: Patient was provided with functional verbal problem solving questions related to safety at home and in the community at 80% accuracy, improving to 90% accuracy with min cues. Social Work: Goals Discharge Plan return home with home care svs and family support Potential for Family Training pt's family is involved and supportive Anticipated Discharge Home Destination Discharge With home care svs and family support Care Plan: Care Plan ADL's - Improve/Maintain Start: 01/25/17 04:46 Freq: QSHIFT Status: Active Target: Activity Type Activity Date Activity User E-Sign Co-Sign Detail Recorded Client Recorded Date Recorded By Document 01/31/17 10:48 [id number] 01/31/17 10:48 [id number] 01/31/17 10:48 PMRU Outcome: ADL's/ADL Transfers Orders/Interventions Occupational Therapy Evaluation & Treatment Device RW and gait belt, BSC Patient to receive OT 5x/wk for 60-120 Therex min/day Self Care Management Group Therapy Neuromuscular ReEducation UE/LE ADL's with Assist Yes ADL Transfers with Assist Yes Toileting: Transfers,Clothing Management Yes ,Hygeine w/Assist Light Kitchen/Laundry w/Assist Yes Progression Toward Outcome/Goals Not Progressing Outcome/Goals Met Pt more fatigued this date, required increased assist for balance in standing, refused attempting shower this date 2* fatigue , nursing aware . Communication-Improve/Maintain Start: 01/25/17 04:46 Freq: QSHIFT Status: Active Target: Activity Type Activity Date Activity User E-Sign Co-Sign Detail Recorded Client Recorded Date Recorded By Document 02/04/17 11:36 [id number] [email or web address] 02/04/17 11:36 [id number] 02/04/17 11:36 PMRU Outcome: Communication/Cognitive Status Outcome/Goals Use Comm Tools/ Devices Makes Needs Known Effectively Other Outcomes/Goals 1) Safely tolerate least restrictive diet 2) Improve cognitive- linguistic skills for increased funciton, independence, and safety. Progression Toward Outcomes/Goals Progressing Outcome/Goals Met Comment The patient presented with continued delayed recall deficits, which improve significantly to 75% accuracy with SENIOR MECHANICAL DESIGN ENGINEER providing max cues for use of memory strategies. The patient was unable to use memory strategies independently. Coping/Psych-Improve/Maintain Start: 01/25/17 04:46 Freq: QSHIFT Status: Active Target: Activity Type Activity Date Activity User E-Sign Co-Sign Detail Recorded Client Recorded Date Recorded By Document 02/04/17 08:48 [id number] 02/04/17 08:49 [id number] 02/04/17 08:48 PMRU Outcome: Coping/Psychosocial Coping Outcome/Goals Verbalization of Acceptance of Rehab Admit Verbalization of Sense of Control Over Health Status Utilization of Appropriate Problem Solving Techniques Willingness to Participate in Treatment Plan and Basic Needs Utilization of Available Support Systems Absence of Destructive Behavior to Self/Others Psychosocial Outcome/Goals Maintain/ Improve Emotional Health Demonstrates Knowledge of Healthy Coping Mechanisms Available Cooperate/ Participate in Plan Progression Toward Outcome/Goals - Progressing Coping Progression Toward Outcome/Goals - Progressing Psychosocial Coping Outcome/Goals Met Demonstrates Understanding of Rehab Admit and Goal Setting Process Performs Actions to Reduce Fear and Anxiety Performs Actions to Reduce Pain and Prevent Complications Psychosocial Outcome/Goals Met Maintain/ Improved Emotional Health Outcome/Goals Met Comment patient cooperative at this time DVT Prophylaxis- Improve/Maintain Start: 01/25/17 04:46 Freq: QSHIFT Status: Complete Target: Activity Type Activity Date Activity User E-Sign Co-Sign Detail Recorded Client Recorded Date Recorded By Document 01/31/17 08:00 [id number] 01/31/17 11:29 [id number] 01/31/17 08:00 PMRU Outcome: DVT Prophylaxis Outcome/Goals Remains Free of DVT Free of complications from current DVT TEDS Stockings on Every AM, Off at HS Progression Toward Outcome/Goals Progressing Outcome/Goals Met Remains Free of DVT Free of complications from current DVT TEDS Stockings on Every AM, Off at HS Discharge Planning - Improve/Maintain Start: 01/25/17 04:46 Freq: QSHIFT Status: Active Target: Activity Type Activity Date Activity User E-Sign Co-Sign Detail Recorded Client Recorded Date Recorded By Document 02/04/17 01:00 [id number] 02/04/17 06:45 [id number] 02/04/17 01:00 PMRU Outcome: Discharge Planning Update Patient Family No Outcome/Goals Demonstrates Understanding of Discharge Plan Progression Toward Outcome/Goals Progressing Education-Improve/Maintain Start: 01/25/17 04:46 Freq: QSHIFT Status: Active Target: Activity Type Activity Date Activity User E-Sign Co-Sign Detail Recorded Client Recorded Date Recorded By Document 02/04/17 08:48 [id number] 02/04/17 08:49 [id number] 02/04/17 08:48 PMRU Outcome: Education Outcome/Goals Demonstrate/ Verbalize Understanding of Written Discharge Instructions Encourage Questions Progression Toward Outcome/Goals Progressing Outcome/Goals Met Comment Reminded pt to keep the walker close to him Medication Administration Start: 01/25/17 04:46 Freq: QSHIFT Status: Active Target: Activity Type Activity Date Activity User E-Sign Co-Sign Detail Recorded Client Recorded Date Recorded By Document 02/04/17 08:48 [id number] 02/04/17 08:49 [id number] 02/04/17 08:48 PMRU Outcome: Medication Administration Assess Patient Knowledge/Teach Med No Education for all Meds Outcome/Goals Patient Independent with Medication Administration at Home Demonstrates Lovenox Administration Progression Towards Outcome/Goals Progressing Outcome/Goals Met Comment medication given whole in nector thick liquids Is Patient Going Home on Lovenox? No Mobility- Improve/Maintain Start: 01/25/17 04:46 Freq: QSHIFT Status: Active Target: Activity Type Activity Date Activity User E-Sign Co-Sign Detail Recorded Client Recorded Date Recorded By Document 02/04/17 12:05 [id number] 02/04/17 12:05 [id number] 02/04/17 12:05 PMRU Outcome: Mobility Physical Therapy Evaluation and Yes Treatment Activity OOB with Assistance Yes WBAT Yes Assistance Yes Patient to be seen 5x/wk for 60-120 min/ Therex day for: Mobility Training Gait Training W/C Mobility Balance Outcome/Goals Maintain/ Achieve Baseline Mobility Status Improve Mobility Status Demonstrates Proper Use of Assistive Devices Free from Complications of Immobility Progression Toward Outcome/Goals Progressing Bed Mobility Yes: independent Transfers Yes: supervision with RW Gait x ft Yes: supervison with RW to 150 ' Up/Down Stairs Yes: CGA+1 with 2 rails. Neurological- Improve/Maintain Start: 01/25/17 04:46 Freq: QSHIFT Status: Active Target: Activity Type Activity Date Activity User E-Sign Co-Sign Detail Recorded Client Recorded Date Recorded By Document 02/04/17 08:48 [id number] [email or web address] 02/04/17 08:49 [id number] 02/04/17 08:48 PMRU Outcome: Neurological Weakness/Aphasia Weakness Outcome/Goals Maintain/ Achieve Baseline Neurological Status Improve Neurological Status Maintain/ Improve Strength/ROM Progression Toward Outcome/Goals Progressing Outcome/Goals Met Maintain/ Achieve Baseline Neurological Status Improve Neurological Status Outcome/Goals Met Comment A+O at this time Nutrition/Swallowing- Improve/Maintain Start: 02/03/17 11:36 Freq: QSHIFT Status: Active Target: Activity Type Activity Date Activity User E-Sign Co-Sign Detail Recorded Client Recorded Date Recorded By Document 02/04/17 11:37 [id number] [email or web address] 02/04/17 11:37 [id number] 02/04/17 11:37 PMRU Outcome: Nutrition/Swallowing Outcome/Goals Demonstrates Adequate Hydration/ Prevents Dehydration Other Outcome/Goals The patient will demonstrate safe po of least restrictive diet with no overt s/s of aspiration/ penetration. Progression Toward Outcome/Goals Progressing Outcome/Goals Met Comment The patient presented with overt s/s of aspiration/ penetration with thin liquid, which reduced with use of chin tuck, however delayed cough noted with thin liquid via cup sip with chin tuck. Recommend continued nectar-thick liquid and soft solids. Pain/Comfort- Improve/Maintain Start: 01/25/17 04:46 Freq: QSHIFT Status: Complete Target: Activity Type Activity Date Activity User E-Sign Co-Sign Detail Recorded Client Recorded Date Recorded By Document 01/30/17 18:28 [id number] 01/30/17 18:30 [id number] 01/30/17 18:28 PMRU Outcome: Pain/Comfort Outcome/Goals Demonstrates Knowledge and Use of Available Comfort Measures Maintain Comfort Level Allowing Patient to Fully Participate in Rehab Outcome/Goals Met Demonstrates Knowledge and Use of Available Comfort Measures Maintain Comfort Level Allowing Patient to Fully Participate in Rehab Safety- Improve/Maintain Start: 01/25/17 04:46 Freq: QSHIFT Status: Active Target: Activity Type Activity Date Activity User E-Sign Co-Sign Detail Recorded Client Recorded Date Recorded By Document 02/04/17 08:48 [id number] 02/04/17 08:49 [id number] 02/04/17 08:48 PMRU Outcome: Safety Outcome/Goals Remain Free of Injury or Harm Cooperates with Safety Measures for Least Restrictive Environment Prevent Falls/ Injury Equipment Needed Progression Toward Outcome/Goals Progressing Outcome/Goals Met Remain Free of Injury or Harm Cooperates with Safety Measures for Least Restrictive Environment Prevent Falls/ Injury Equipment Needed Outcome/Goals Met Comment [address] Medicine Note: Length of Stay: 10 days Anticipated Discharge Destination: Home Tentative Discharge Date: 02/14/17 Discharged to: Home
[2017-02-04] MEDS: Mirtazapine TAB* 15 MG PO SCH (20:27)
[2017-02-04] MEDS: Tamsulosin CAP* 0.4 MG PO SCH (20:27)
[2017-02-05] MEDS: Omeprazole CAP* 20 MG PO SCH (05:45)
[2017-02-05] MEDS: Heparin VIAL(*) 5000 UNITS/ML VIAL (FIVE THOUSAND) SUBCUT SCH ×3 (05:45→21:38)
[2017-02-05 06:50] LABS: Hematocrit 41 % (42-52); Hemoglobin 13.9 g/dl (14.0-18.0); Mean Corpuscular HGB Conc 34 g/dl (31-36); Mean Corpuscular Hemoglobin 31 pg (27-31); Mean Corpuscular Volume 92 fL (80-94); Mean Platelet Volume 8 um3 (7.4-10.4); Red Cell Distribution Width 13 % (10.5-15); White Blood Count 10.7 10^3/ul (3.5-10.8)
[2017-02-05 07:08] LABS: Albumin 3.5 g/dL (3.2-5.2); BUN/Creatinine Ratio 23.2 (8-20); Calcium 9.2 mg/dL (8.6-10.3); EGFR Non-African American 74.6 (>60); Globulin 2.4 g/dL (2-4); Potassium 3.9 mmol/L (3.5-5.0); Total Bilirubin 0.7 mg/dL (0.2-1.0); Total Protein 5.9 g/dL (6.4-8.9)
[2017-02-05] MEDS: Losartan TAB* 25 MG PO SCH ×2 (07:56→21:38)
[2017-02-05] MEDS: levETIRAcetam TAB* 500 MG PO SCH ×2 (07:56→21:37)
[2017-02-05] MEDS: Metoprolol Tartrate TAB* 25 MG PO SCH (07:56)
[2017-02-05] MEDS: Docusate CAP* 100 MG PO SCH ×2 (07:56→21:37)
[2017-02-05] MEDS: Aspirin EC Low Dose* 81 MG TAB.EC PO SCH (07:56)
[2017-02-05] MEDS: Magnesium Hydroxide LIQ* 30 ML UDC PO PRN (09:03)
[2017-02-05] MEDS: Tamsulosin CAP* 0.4 MG PO SCH (21:37)
[2017-02-05] MEDS: Mirtazapine TAB* 15 MG PO SCH (21:37)
[2017-02-06] MEDS: Heparin VIAL(*) 5000 UNITS/ML VIAL (FIVE THOUSAND) SUBCUT SCH ×3 (06:05→22:37)
[2017-02-06] MEDS: Omeprazole CAP* 20 MG PO SCH (06:10)
[2017-02-06] MEDS: Metoprolol Tartrate TAB* 25 MG PO SCH (08:15)
[2017-02-06] MEDS: Losartan TAB* 25 MG PO SCH ×2 (08:15→20:02)
[2017-02-06] MEDS: levETIRAcetam TAB* 500 MG PO SCH ×2 (08:15→20:02)
[2017-02-06] MEDS: Aspirin EC Low Dose* 81 MG TAB.EC PO SCH (08:16)
[2017-02-06] MEDS: Docusate CAP* 100 MG PO SCH ×2 (08:16→20:02)
[2017-02-06] MEDS: Mirtazapine TAB* 15 MG PO SCH (20:01)
[2017-02-06] MEDS: Tamsulosin CAP* 0.4 MG PO SCH (20:02)
--- NOTE | 2017-02-07 02:53 | TRS ---
CC: [facility]* TRANSFER SUMMARY: DATE OF ADMISSION: 01/24/17 DATE OF TRANSFER: 02/07/17 The patient is being transferred to [facility]. DISCHARGE DIAGNOSES: 1. Peripheral neuropathy. 2. Ataxia. 3. Closed head injury. 4. Seizure disorder. 5. Hypertension. 6. Aortic valve replacement. 7. Gastroesophageal reflux disease. HISTORY OF ILLNESS AND HOSPITAL COURSE: For complete history of the events leading up to his rehab stay, please see the history and physical dictated by Dr. Erma Nevarez on 01/24/17. While on the rehab unit, he initially had some agitation at night and had difficulty adjusting to his new surroundings. The patient, however, slowly improved with time. He became more aware and more cognitively intact. He was seen by both Physical and Occupational Therapy as well as Speech Therapy while on the rehab unit. He was not able to achieve functional independence. At the time of admission with physical therapy, the patient required max assist for transfer. He was unable to ambulate. With occupational therapy, he was max assist for toileting and toilet transfers. By the time of discharge, the patient was supervision for transfer, supervision ambulating about 90 to 150 feet. With occupational therapy, he was supervision for upper body dressing, max assist for lower body dressing, mod assist for bathing, mod assist for toileting. The patient was also seen by Speech Therapy while on the rehab unit. At the time of admission, the patient was on a diet of soft solids and nectar thick liquids. He was noted to have significant cognitive linguistic deficits. By the time of discharge, the patient was still on soft solids with nectar thick liquids, still had some cognitive linguistic deficits noted by Speech Therapy. The patient is being transferred to [facility] in order to undergo ongoing rehabilitation with the hope that he will return to independent living. DISCHARGE DIET: Soft solids with nectar thick liquids. DISCHARGE MEDICATIONS: 1. Aspirin 81 mg daily. 2. Vitamin B12 1000 mcg IM every 30 days, due next on 02/17/17. 3. Advil 200 mg every 8 hours as needed. 4. Keppra 500 mg twice a day. 5. Cozaar 25 mg at bedtime and 50 mg in the morning. 6. Lopressor 25 mg daily. 7. Remeron 7.5 mg at bedtime. 8. Prilosec 20 mg daily. 9. Flomax 0.4 mg at bedtime. 10. Senokot 2 tablets at bedtime as needed. SERVICES AFTER DISCHARGE: He is to have restorative physical therapy, occupational therapy, and speech therapy. FOLLOWUP: He can follow up with his primary care doctor, Dr. May, or his new primary care doctor whom he choses after Dr. May retires. He can also follow up with his neurologist, Dr. Ira Concepcion. [id number]/[facility] #: [id number] VISHAL
[2017-02-07] MEDS: Heparin VIAL(*) 5000 UNITS/ML VIAL (FIVE THOUSAND) SUBCUT SCH (06:21)
[2017-02-07] MEDS: Omeprazole CAP* 20 MG PO SCH (06:21)
[2017-02-07 06:33] VITALS: BP 156/84
[2017-02-07] MEDS: Docusate CAP* 100 MG PO SCH (08:14)
[2017-02-07] MEDS: Metoprolol Tartrate TAB* 25 MG PO SCH (08:14)
[2017-02-07] MEDS: levETIRAcetam TAB* 500 MG PO SCH (08:15)
[2017-02-07] MEDS: Losartan TAB* 25 MG PO SCH (08:15)
[2017-02-07] MEDS: Aspirin EC Low Dose* 81 MG TAB.EC PO SCH (08:15)
[2017-02-17] MEDS ORDERED: Cyanocobalamin INJ * 1,000 MCG/ML VIAL 1 ML VIAL IM SCH (09:00)
== END 2017-02-07 13:10 | DRG 73 ==
LOC: PMRU 14:20
PROVIDERS: ADMIT Physical Medicine & Rehabilitation; ATTEND Physical Medicine & Rehabilitation
PROC: F07Z5ZZ Bed Mobility Treatment (ICD-10-PCS; principal; 2017-01-24)
PROC: F07Z9ZZ Gait Training/Functional Ambulation Treatment (ICD-10-PCS; 2017-01-24)
PROC: F07Z8ZZ Transfer Training Treatment (ICD-10-PCS; 2017-01-24)
PROC: F07Z4ZZ Wheelchair Mobility Treatment (ICD-10-PCS; 2017-01-24)
PROC: F08Z0ZZ Bathing/Showering Techniques Treatment (ICD-10-PCS; 2017-01-24)
PROC: F08Z1ZZ Dressing Techniques Treatment (ICD-10-PCS; 2017-01-24)
PROC: F08Z3ZZ Feeding/Eating Treatment (ICD-10-PCS; 2017-01-24)
PROC: F06Z6ZZ Communicative/Cognitive Integration Skills Treatment (ICD-10-PCS; 2017-01-24)
PROC: F06ZDZZ Swallowing Dysfunction Treatment (ICD-10-PCS; 2017-01-24)
DX: G62.9 Polyneuropathy, unspecified (principal); J18.8 Other pneumonia, unspecified organism; I67.2 Cerebral atherosclerosis; F01.50 Vascular dementia, unspecified severity, without behavioral disturbance, psychotic disturbance, mood disturbance, and anxiety; R13.10 Dysphagia, unspecified; G40.909 Epilepsy, unspecified, not intractable, without status epilepticus; E87.1 Hypo-osmolality and hyponatremia; R26.2 Difficulty in walking, not elsewhere classified; I10 Essential (primary) hypertension; G31.84 Mild cognitive impairment of uncertain or unknown etiology; R09.02 Hypoxemia; F32.9 Major depressive disorder, single episode, unspecified; E87.6 Hypokalemia; Z66 Do not resuscitate; R27.0 Ataxia, unspecified; K21.9 Gastro-esophageal reflux disease without esophagitis; E53.8 Deficiency of other specified B group vitamins; Z95.2 Presence of prosthetic heart valve; Z95.0 Presence of cardiac pacemaker; Z79.1 Long term (current) use of non-steroidal anti-inflammatories (NSAID); Z79.82 Long term (current) use of aspirin; Z79.01 Long term (current) use of anticoagulants; Z79.899 Other long term (current) drug therapy; Z82.49 Family history of ischemic heart disease and other diseases of the circulatory system; Z87.891 Personal history of nicotine dependence
CPT/HCPCS: 36415; 71020; 80053; 85025; A9270-GY; J1644; J7611

== ENCOUNTER 2017-02-08 11:27 | Inpatient (IN) | payer MEDICARE ==
[2017-02-08] MEDS ORDERED: NS 0.9% 1000 ML* 1,000 ML IV ONE (12:08)
[2017-02-08 12:16] LABS: Hematocrit 43 % (42-52); Hemoglobin 14.3 g/dl (14.0-18.0); Mean Corpuscular HGB Conc 33 g/dl (31-36); Mean Corpuscular Hemoglobin 31 pg (27-31); Mean Corpuscular Volume 92 fL (80-94); Mean Platelet Volume 8 um3 (7.4-10.4); Red Blood Count 4.66 10^6/ul (4.0-5.4); Red Cell Distribution Width 14 % (10.5-15); White Blood Count 7.7 10^3/ul (3.5-10.8)
[2017-02-08 12:32] LABS: Albumin 3.8 g/dL (3.2-5.2); BUN/Creatinine Ratio 17.6 (8-20); Calcium 9.3 mg/dL (8.6-10.3); EGFR African American 88.4 (>60); EGFR Non-African American 68.8 (>60); Globulin 2.7 g/dL (2-4); Total Bilirubin 0.9 mg/dL (0.2-1.0); Total Protein 6.5 g/dL (6.4-8.9)
[2017-02-08 12:34] LABS: Troponin I 0.02 ng/mL (<0.04)
--- NOTE | 2017-02-08 12:50 | RAD ---
INDICATION: Altered mental status COMPARISON: Most recent brain CT dated January 17, 2017 TECHNIQUE: Contiguous axial sections of the brain were obtained from the skull base to the vertex without contrast. FINDINGS: The ventricles, cisterns and sulci exhibit symmetrical and stable involutional changes. There is diffuse periventricular and subcortical white matter hypoattenuation, not significantly changed from the previous brain CT, most consistent with chronic microvascular disease. Cotter-white matter differentiation is adequately maintained and there is no sulcal effacement. No significant focal abnormality or mass effect is present. There is no evidence for intracranial hemorrhage. No significant focal osseous abnormality is present. The visualized portion of the paranasal sinuses and mastoid air cells appear clear. IMPRESSION: Stable chronic and degenerative changes as described above without acute intracranial abnormality.
[2017-02-08 13:03] LABS: TSH (Thyroid Stimulating Horm) 1.93 mcIU/mL (0.34-5.60)
--- NOTE | 2017-02-08 13:21 | RAD ---
INDICATION: Altered mental status COMPARISON: Most recent comparison chest x-rays dated January 24, 2017 TECHNIQUE: Single AP view of the chest was obtained. FINDINGS: Stable iatrogenic findings include a left chest cardiac pacemaker with 2 leads overlying the heart, a prostatic aortic valve and sternotomy wires. There is mild cardiomegaly with calcified atherosclerosis at the arch of the aorta. Faint densities obscure the lung bases and cause mild costophrenic angle blunting. More superiorly the lungs are adequately aerated. IMPRESSION: IN THE CORRECT CLINICAL SETTING THE FINDINGS OF THIS LIMITED PORTABLE SINGLE VIEW CHEST X-RAY COULD BE COMPATIBLE WITH EXACERBATION OF CONGESTIVE HEART FAILURE.
[2017-02-08 15:01] LABS: Urine Bacteria Absent (Absent); Urine Bilirubin Negative (Negative); Urine Glucose Negative (Negative); Urine Nitrite Negative (Negative)
--- NOTE | 2017-02-08 16:19 | ED ---
Mary Ordonez Alok, scribed for Daniel Cochran MD on 02/08/17 at 1211 . Dizziness - HPI Summary HPI Summary: 89M presents to the ED for dizziness, disorientation, and weakness since today. Pt was reportedly released from [facility] yesterday following a 3 week admittance for fall and was baseline normal yesterday until today. Pt also c/o abd pain, flank pain, and SOB. - History Of Current Complaint Chief Complaint: EDGeneral Stated Complaint: WEAK / DISORIENTED Time Seen by Provider: 02/08/17 11:53 Hx Obtained From: Patient, Family/Hvac R Tech Hx From Patient Unobtainable Due To: Altered Mental Status Onset/Duration: Still Present Timing: Constant Severity Initially: Moderate Severity Currently: Moderate Character: Weak, Dizzy Aggravating Factor(s): Nothing Alleviating Factor(s): Nothing Associated Signs And Symptoms: Positive: SOB, Other: - abd pain, flank pain - Allergies/Home Medications Allergies/Adverse Reactions: Allergies Allergy/AdvReac Type Severity Reaction Status Date / Time No Known Allergies Allergy Verified 01/21/17 13:39 PMH/Surg Hx/FS Hx/Imm Hx Endocrine/Hematology History: Denies: Hx Anticoagulant Therapy, Hx Blood Disorders, Hx Blood Transfusions, Hx Bone Marrow Disease, Hx Diabetes, Hx Systemic Lupus Erythematosus, Hx Sickle Cell Disease, Hx Thyroid Disease, Hx Anemia, Hx Unexplained Bleeding, Other Endocrine/Hematological Disorders Cardiovascular History: Reports: Hx Auto Implanted Cardiovert Defib, Hx Hypertension, Hx Pacemaker/ICD - UNSAFE FOR MRI - ABANDONED [employer], Hx Valvular Heart Disease Denies: Hx Aneurysm, Hx Cardiac Arrest, Hx Cardiomegaly, Hx Congenital Heart Disease, Hx Congestive Heart Failure, Hx Coronary Artery Disease, Hx Deep Vein Thrombosis, Hx Hypercholesterolemia, Hx Hypotension, Hx Peripheral Vascular Disease, Hx Rheumatic Fever, Hx Syncope, Other Cardiovascular Problems/Disorders Respiratory History: Denies: Hx Asthma, Hx Chronic Bronchitis, Hx Chronic Obstructive Pulmonary Disease (COPD), Hx Cystic Fibrosis, Hx Lung Cancer, Hx Pleural Effusion, Hx Pneumonia, Hx Pulmonary Edema, Hx Pulmonary Embolism, Hx Seasonal Allergies, Hx Sleep Apnea, Other Respiratory Problems/Disorders GI History: Reports: Hx Gastroesophageal Reflux Disease Denies: Hx Cirrhosis, Hx Crohn's Disease, Hx Diverticulosis, Hx Gall Bladder Disease, Hx Gastrointestinal Bleed, Hx Hiatal Hernia, Hx Irritable Bowel, Hx Jaundice, Hx Obstructive Bowel, Hx Ileostomy, Hx Pyloric Stenosis, Hx Ulcer, Other GI Disorders History: Reports: Hx Benign Prostatic Hyperplasia Denies: Hx Acute Renal Failure, Hx Chronic Renal Failure, Hx Dialysis, Hx Kidney Infection, Hx Kidney Stones, Other Problems/Disorders Musculoskeletal History: Denies: Hx Arthritis, Hx Back Problems, Hx Bursitis, Hx Congenital Bone Abnormalities, Hx Fibromyalgia, Hx Gout, Hx Orthopedic Injury, Hx Osteoporosis, Hx Scoliosis, Hx Tendonitis, Other Musculoskeletal History Sensory History: Reports: Hx Cataracts, Hx Contacts or Glasses Denies: Hx Eye Injury, Hx Eye Prosthesis, Hx Glaucoma, Hx Macular Degeneration, Hx Vision Problem, Hx Deafness, Hx Hearing Aid, Hx Hearing Problem , Other Sensory Impairments Opthamlomology History: Reports: Hx Cataracts, Hx Contacts or Glasses Denies: Hx Eye Injury, Hx Eye Prosthesis, Hx Glaucoma, Hx Macular Degeneration, Hx Vision Problem, Other Sensory Impairments Neurological History: Reports: Hx Seizures - petit mal seizure disorder Denies: Hx Dementia, Hx Developmental Delay, Hx Headaches, Hx Migraine, Hx Nerve Disease, Hx Spinal Cord Injury, Hx Transient Ischemic Attacks (TIA), Other Neuro Impairments/Disorders Psychiatric History: Reports: Hx Anxiety, Hx Depression Denies: Hx Attention Deficit Hyperactivity Disorder, Hx Eating Disorder, Hx Panic Disorder, Hx Post Traumatic Stress Disorder, Hx Inpatient Treatment, Hx Community Mental Health Tx, Hx Schizophrenia, Hx Bipolar Disorder, Hx Suicide Attempt, Hx of Violent Episodes Against Others, Hx Substance Abuse, Other Psychiatric Issues/Disorders - Cancer History Hx Chemotherapy: No Hx Radiation Therapy: No - Surgical History Surgery Procedure, Year, and Place: [employer]IC PACEMAKER W/ [employer] PACER LEADS- ABANDONED 1999 Hx Anesthesia Reactions: No Infectious Disease History: No Infectious Disease History: Reports: Hx Shingles Denies: Hx Clostridium Difficile, Hx Hepatitis, Hx Human Immunodeficiency Virus (HIV), Hx Tuberculosis, Traveled Outside the [place] in Last 30 Days - Family History Known Family History: Positive: Hypertension - Social History Occupation: Retired Lives: With Family Alcohol Use: None Alcohol Amount: 1 beer daily Substance Use Type: Reports: None Smoking Status (MU): Former Smoker Review of Systems Negative: Fever Positive: Shortness Of Breath Positive: Abdominal Pain Neurological: Other - Dizziness, Disoriented Positive: Weakness All Other Systems Reviewed And Are Negative: Yes Physical Exam - Summary Physical Exam Summary: VITAL SIGNS: Reviewed. GENERAL: Patient is a well-developed and nourished male who is lying comfortable in the stretcher. Patient is not in any acute respiratory distress. HEAD AND FACE: No signs of trauma. No ecchymosis, hematomas or skull depressions. No sinus tenderness. EYES: PERRLA, EOMI x 2, No injected conjunctiva, no nystagmus. EARS: Hearing grossly intact. Ear canals and tympanic membranes are within normal limits. MOUTH: Oropharynx within normal limits. NECK: Supple, trachea is midline, no adenopathy, no JVD, no carotid bruit, no c- spine tenderness, neck with full ROM. CHEST: Symmetric, no tenderness at palpation. Ejection systolic murmur LUNGS: Clear to auscultation bilaterally. No wheezing or crackles. CVS: Regular rate and rhythm, S1 and S2 present, no murmurs or gallops appreciated. ABDOMEN: Soft, non-tender. No signs of distention. No rebound no guarding, and no masses palpated. Bowel sounds are normal. EXTREMITIES: FROM in all major joints, no edema, no cyanosis or clubbing. NEURO: Pt appear lethargic. SKIN: Dry and warm Triage Information Reviewed: Yes Vital Signs On Initial Exam: Initial Vitals Temp Pulse Resp BP Pulse Ox 97.8 F 81 20 84/47 96 02/08/17 11:31 02/08/17 11:31 02/08/17 11:31 02/08/17 11:31 02/08/17 11:31 Vital Signs Reviewed: Yes Diagnostics - Vital Signs Vital Signs Temp Pulse Resp BP Pulse Ox 02/08/17 11:35 98.0 F 86 20 84/47 96 02/08/17 11:31 97.8 F 81 20 84/47 96 - Laboratory Lab Results: Lab Results 02/08/17 02/08/17 02/08/17 Range/Units 11:59 11:59 11:59 WBC 7.7 (3.5-10.8) 10^3/ul RBC 4.66 (4.0-5.4) 10^6/ul Hgb 14.3 (14.0-18.0) g/dl Hct 43 (42-52) % MCV 92 (80-94) fL MCH 31 (27-31) pg MCHC 33 (31-36) g/dl RDW 14 (10.5-15) % Plt Count 262 (150-450) 10^3/ul MPV 8 (7.4-10.4) um3 Neut % (Auto) 68.2 (38-83) % Lymph % (Auto) 20.3 L (25-47) % [place] % (Auto) 8.8 (1-9) % Eos % (Auto) 1.9 (0-6) % Baso % (Auto) 0.8 (0-2) % Absolute Neuts (auto) 5.3 (1.5-7.7) 10^3/ul Absolute Lymphs (auto) 1.6 (1.0-4.8) 10^3/ul Absolute Monos (auto) 0.7 (0-0.8) 10^3/ul Absolute Eos (auto) 0.1 (0-0.6) 10^3/ul Absolute Basos (auto) 0.1 (0-0.2) 10^3/ul Absolute Nucleated RBC 0 10^3/ul Nucleated RBC % 0 Sodium 136 (133-145) mmol/L Potassium 4.0 (3.5-5.0) mmol/L Chloride 104 (101-111) mmol/L Carbon Dioxide 22 (22-32) mmol/L Anion Gap 10 (2-11) mmol/L BUN 18 (6-24) mg/dL Creatinine 1.02 (0.67-1.17) mg/dL Est GFR ( Amer) 88.4 (>60) Est GFR (Non-Af Amer) 68.8 (>60) BUN/Creatinine Ratio 17.6 (8-20) Glucose 134 H (70-100) mg/dL Lactic Acid 2.6 H* (0.5-2.0) mmol/L Calcium 9.3 (8.6-10.3) mg/dL Total Bilirubin 0.90 (0.2-1.0) mg/dL AST 19 (13-39) U/L ALT 23 (7-52) U/L Alkaline Phosphatase 103 (34-104) U/L Ammonia (16-53) mol/L Total Creatine Kinase 16 (10-223) U/L Troponin I 0.02 (<0.04) ng/mL Total Protein 6.5 (6.4-8.9) g/dL Albumin 3.8 (3.2-5.2) g/dL Globulin 2.7 (2-4) g/dL Albumin/Globulin Ratio 1.4 (1-3) TSH 1.93 (0.34-5.60) mcIU/mL Urine Color Urine Appearance Urine pH (5-9) Ur Specific [place] (1.010-1.030) Urine Protein (Negative) Urine Ketones (Negative) Urine Blood (Negative) Urine Nitrate (Negative) Urine Bilirubin (Negative) Urine Urobilinogen (Negative) Ur Leukocyte Esterase (Negative) Urine WBC (Auto) (Absent) Urine RBC (Auto) (Absent) Ur Squamous Epith Cells (Absent) Urine Bacteria (Absent) Urine Glucose (Negative) 02/08/17 02/08/17 Range/Units 11:59 14:50 WBC (3.5-10.8) 10^3/ul RBC (4.0-5.4) 10^6/ul Hgb (14.0-18.0) g/dl Hct (42-52) % MCV (80-94) fL MCH (27-31) pg MCHC (31-36) g/dl RDW (10.5-15) % Plt Count (150-450) 10^3/ul MPV (7.4-10.4) um3 Neut % (Auto) (38-83) % Lymph % (Auto) (25-47) % [place] % (Auto) (1-9) % Eos % (Auto) (0-6) % Baso % (Auto) (0-2) % Absolute Neuts (auto) (1.5-7.7) 10^3/ul Absolute Lymphs (auto) (1.0-4.8) 10^3/ul Absolute Monos (auto) (0-0.8) 10^3/ul Absolute Eos (auto) (0-0.6) 10^3/ul Absolute Basos (auto) (0-0.2) 10^3/ul Absolute Nucleated RBC 10^3/ul Nucleated RBC % Sodium (133-145) mmol/L Potassium (3.5-5.0) mmol/L Chloride (101-111) mmol/L Carbon Dioxide (22-32) mmol/L Anion Gap (2-11) mmol/L BUN (6-24) mg/dL Creatinine (0.67-1.17) mg/dL Est GFR ( Amer) (>60) Est GFR (Non-Af Amer) (>60) BUN/Creatinine Ratio (8-20) Glucose (70-100) mg/dL Lactic Acid (0.5-2.0) mmol/L Calcium (8.6-10.3) mg/dL Total Bilirubin (0.2-1.0) mg/dL AST (13-39) U/L ALT (7-52) U/L Alkaline Phosphatase (34-104) U/L Ammonia 44 (16-53) mol/L Total Creatine Kinase (10-223) U/L Troponin I (<0.04) ng/mL Total Protein (6.4-8.9) g/dL Albumin (3.2-5.2) g/dL Globulin (2-4) g/dL Albumin/Globulin Ratio (1-3) TSH (0.34-5.60) mcIU/mL Urine Color Yellow Urine Appearance Clear Urine pH 6.0 (5-9) Ur Specific [place] 1.012 (1.010-1.030) Urine Protein Negative (Negative) Urine Ketones Negative (Negative) Urine Blood Negative (Negative) Urine Nitrate Negative (Negative) Urine Bilirubin Negative (Negative) Urine Urobilinogen Negative (Negative) Ur Leukocyte Esterase 1+ H (Negative) Urine WBC (Auto) Trace(0-5/hpf) (Absent) Urine RBC (Auto) Trace(0-2/hpf) (Absent) Ur Squamous Epith Cells Present H (Absent) Urine Bacteria Absent (Absent) Urine Glucose Negative (Negative) Result Diagrams: 02/08/17 11:59 02/08/17 11:59 Lab Statement: Any lab studies that have been ordered have been reviewed, and results considered in the medical decision making process. - Radiology CXR Xray Interpretation: Positive (See Comments) - IMPRESSION: IN THE CORRECT CLINICAL SETTING THE FINDINGS OF THIS LIMITED PORTABLE SINGLE VIEW CHEST X-RAY COULD BE COMPATIBLE WITH EXACERBATION OF CONGESTIVE HEART FAILURE. Radiology Interpretation Completed By: Radiologist - CT Brain CT CT Interpretation: Positive (See Comments) - IMPRESSION: Stable chronic and degenerative changes as described above without acute intracranial abnormality. CT Interpretation Completed By: Radiologist - EKG 1152 Cardiac Rate: Other Rate - 80 bpm EKG Interpretation: atrial paced rhythm Dizzy Course/Dx - Course Course Of Treatment: 89M presents to the ED for dizziness, disorientation, and weakness since today. Pt was reportedly released from [facility] yesterday following a 3 week admittance for fall and was baseline normal yesterday until today. Pt also c/o abd pain, flank pain, and SOB. Blood work within nml limits. Urine negative for UTI. CXR shows "IN THE CORRECT CLINICAL SETTING THE FINDINGS OF THIS LIMITED PORTABLE SINGLE VIEW CHEST X-RAY COULD BE COMPATIBLE WITH EXACERBATION OF CONGESTIVE HEART FAILURE." Brain CT shows "Stable chronic and degenerative changes as described above without acute intracranial abnormality. " Pt shows no abnormal test results. Spoke with family who are concerned they will be unable to take the pt home and request assisted admit. The family understands they will have to pay for this service and agree. Pt is alert but not oriented, hemodynamically stable. - Diagnoses Differential Diagnosis/HQI/PQRI: CVA, Dysrhythmia, Myocardial Infarction, Seizure, Transient Ischemic Attack, Vasovagal Reaction Provider Diagnoses: Unable to take care of himself, Group Home admit - Provider Notifications Discussed Care Of Patient With: Jody Aviles - Will admit pt to [facility] Time Discussed With Above Provider: 15:37 Discharge - Discharge Plan Condition: Stable Disposition: ADMITTED TO [facility] documentation as recorded by the Mary alexander Alok accurately reflects the service I personally performed and the decisions made by , Daniel Cochran MD.
[2017-02-08] MEDS ORDERED: Senna TAB PO PRN (17:07)
[2017-02-08] MEDS ORDERED: Acetaminophen TAB* 325 MG PO PRN (17:07)
[2017-02-08] MEDS ORDERED: Docusate CAP* 100 MG PO PRN (17:07)
[2017-02-08] MEDS: Losartan TAB* 25 MG PO SCH (20:22)
[2017-02-08] MEDS: Mirtazapine TAB* 15 MG PO SCH (20:23)
[2017-02-08] MEDS: levETIRAcetam TAB* 500 MG PO SCH (20:23)
[2017-02-08] MEDS: Tamsulosin CAP* 0.4 MG PO SCH (20:23)
[2017-02-08] MEDS: Heparin VIAL(*) 5000 UNITS/ML VIAL (FIVE THOUSAND) SUBCUT SCH (21:20)
--- NOTE | 2017-02-08 22:11 | HP ---
CC: Dr. May * HISTORY AND PHYSICAL: DATE OF ADMISSION: 02/08/17 PROVIDER: LOLA Yuan ATTENDING PHYSICIAN: Marilee Goldsmith MD * (report dictated LOLA Yuan) PRIMARY CARE PROVIDER: Karthik May MD CHIEF COMPLAINT: Weakness. HISTORY OF PRESENT ILLNESS: Mr. Jarrett is an 89-year-old male with a past medical history of peripheral neuropathy, ataxia, seizure disorder, hypertension , status post aortic valve replacement, GERD, and a recent fall with closed head injury in which he was hospitalized from 01/17/17 to 01/24/17 after he had a fall and had progressive gait instability and progressive cognitive decline in which he was transferred to [facility] for rehab services. He was rehabbed in [facility] from 01/24/17 to 02/07/17, which was yesterday, when he was then transferred to [facility] for further subacute rehab with PT, OT, and Speech Therapy services. Per the family, they arrived at [facility] yesterday around 1 p.m. and the patient was admitted to the "dementia unit" due to his history of sundowning at night and the family was very upset by this thinking that they were going to be admitted to the rehab unit. It was discussed with them that the patient could still undergo rehab services on any unit in the facility. They had concerns about his bed being far away from the nurses' station and ended up taking the patient home last evening. They report that the patient was up all night long with sundowning and with noted confusion and they were unable to care for him at home and brought him back to the emergency department. The son and daughter have accompanied him to the emergency department. They report that when he initially got to the apartment, he looked very pale and peaked and they thought that he was actually "going to pass" at that time. This only lasted several minutes and then these symptoms appeared to resolve. He had no noted abnormal vital signs during this episode. The patient was evaluated by the emergency room physician and was found to have a negative workup as well I saw the patient in the emergency department and his workup is unremarkable. He does have a chest x-ray that reports "in the right setting, possible congestive heart failure," but in comparison to prior other chest x-rays, this appears to be his baseline and he does not appear to be in congestive heart failure on my examination. The plan will be to admit the patient to residential and the family does understand that the cost is a $1000 a day out of pocket and are willing to pay this. They would like to work with social work to get the patient in a different rehab facility. On my evaluation, Mr. Jarrett is sleeping; however, he awakes very easily to my voice and answers questions appropriately. He is alert and oriented to self and place, but not to time. He follows commands well. Has noted mild dementia , but appears to be appropriate. He denies chest pain, shortness of breath, orthopnea, or lower extremity swelling. No nausea, vomiting, abdominal pain, diarrhea, or constipation. Denies headaches, sore throat, rhinorrhea, or congestion. PAST MEDICAL HISTORY: 1. Peripheral neuropathy. 2. Ataxia. 3. Closed head injury. 4. Seizure disorder. 5. Hypertension. 6. Aortic valve replacement. 7. GERD. CURRENT MEDICATIONS: 1. Aspirin 81 mg p.o. daily. 2. Vitamin B12 1000 mcg IM q.30 days, due next on 01/28/17. 3. Advil 200 mg p.o. q.8 hours p.r.n. 4. Keppra 500 mg p.o. b.i.d. 5. Cozaar 25 mg at bedtime and 50 in the morning. 6. Lopressor 25 mg p.o. daily. 7. Remeron 7.5 mg at bedtime. 8. Prilosec 20 mg p.o. daily. 9. Flomax 0.4 mg at bedtime. 10. Senokot 2 tabs p.o. daily at bedtime as needed. ALLERGIES: No known drug allergies. FAMILY HISTORY: Significant for hypertension, coronary artery disease, and hyperlipidemia. SOCIAL HISTORY: The patient was living at home with his . 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 He quit smoking approximately 50 years ago. Rare alcohol use. His and his son are the health care proxies. His 's name is Alena Jarrett, phone number is [phone]. Cell number is [phone]. REVIEW OF SYSTEMS: A 14-point review of systems was performed. All the pertinent positives and negatives are mentioned in the history of present illness. Otherwise negative. PHYSICAL EXAMINATION GENERAL APPEARANCE: Elderly male lying in bed, resting with eyes closed. Alert and oriented to self and place, but not to time. No acute distress noted. VITAL SIGNS: Temperature 98.0, heart rate 80, respirations 18, O2 sat 95% on room air, and blood pressure 133/76. HEENT: Head is normocephalic, atraumatic. Pupils are equal and reactive to light. Oropharynx is clear. Moist mucous membranes. NECK: Supple. No cervical or supraclavicular lymphadenopathy. LUNGS: Clear to auscultation bilaterally. Good aeration throughout. No rhonchi, wheezes, or rales noted. CARDIAC: S1, S2. Regular rate and rhythm. No murmur, rub, or gallop appreciated. No lower extremity edema noted. No JVD noted. ABDOMEN: Soft, nontender, and nondistended. Normal bowel sounds x4. EXTREMITIES: No clubbing, cyanosis, or edema noted; 2+ peripheral pulses bilaterally. NEUROLOGIC: Cranial nerves II through XII are intact. Strength is 5/5 throughout. Tongue is midline. No facial droop. DIAGNOSTIC STUDIES/LAB DATA: WBC 4.7, RBC 4.66, HGB 14.3, HCT 43, MCV 92, MCH 31, MCHC 33, RDW 14, and platelet count 264. Sodium 136, potassium 4.0, chloride 104, carbon dioxide 22, anion gap 10, BUN 18, creatinine 1.02, glucose 134, lactic acid 2.6, and calcium 9.3. Total bilirubin 0.90, AST 19, ALT 23, and alkaline phosphatase 103. Ammonia 44. Total creatine kinase 16. Troponin 0.02. Total protein 6.5. TSH 1.93. Urinalysis: 1+ leukocyte esterase, squamous epithelial cells, positive. Brain CT, impression: Stable chronic degenerative changes as described above without acute intracranial abnormality. EKG: Atrial sense, ventricular paced rhythm with a heart rate of 80. In comparison to prior EKGs, no acute changes noted. Chest x-ray: "In the correct clinical setting of findings, this is limited portable single view chest x-ray, could be compatible with exacerbation of congestive heart failure." ASSESSMENT AND PLAN: Mr. Jarrett is an 89-year-old male with a recent prolonged hospitalization after a fall with closed head injury with deconditioning and weakness in which he was sent to [facility] and rehabbed and was sent to [facility] for further subacute rehab. 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 The patient will be admitted to residential care. 1. Deconditioning and weakness: Please see transfer summary from Dr. Tejeda for full details on his rehab status. The patient would like to work with social work to get the patient into a different rehab facility. 2. Seizure disorder: Continue Keppra 500 mg p.o. daily with seizure precautions. 3. Hypertension: Controlled. Continue Lopressor and Cozaar. 4. Gastroesophageal reflux disease: Asymptomatic: Continue Prilosec. 5. History of constipation: Well controlled at this time. Continue Senokot p.r.n. 6. Vascular dementia with behavioral disturbance: Per the daughter, the patient was recently placed on Remeron 7.5 mg p.o. at bedtime with hopes this would help his sundowning at night. We will continue this at this time. 7. DVT prophylaxis: Heparin subcu. 8. Code status: DNR/DNI. 9. Hospital status: Intermediate. TIME SPENT: Approximately 60 minutes was spent on this admission. TONY NI, NATALIE [id number]/CPS #: [id number] VISHAL
[2017-02-09] MEDS: Heparin VIAL(*) 5000 UNITS/ML VIAL (FIVE THOUSAND) SUBCUT SCH ×3 (05:56→21:37)
[2017-02-09] MEDS: Losartan TAB* 25 MG PO SCH ×2 (07:20→20:17)
[2017-02-09] MEDS: levETIRAcetam TAB* 500 MG PO SCH ×2 (07:20→20:18)
[2017-02-09] MEDS: Aspirin EC Low Dose* 81 MG TAB.EC PO SCH (07:20)
[2017-02-09] MEDS: Omeprazole CAP* 20 MG PO SCH (07:20)
[2017-02-09] MEDS: Metoprolol Tartrate TAB* 25 MG PO SCH (07:20)
[2017-02-09] MEDS ORDERED: HYDROCHLOROTHIAZIDE PO SCH (09:00)
--- NOTE | 2017-02-09 10:42 | PN ---
Subjective Date of Service: 02/09/17 Interval History: This is an 89 yo gentleman recently discharged from [facility] to [facility] following a fall with closed head injury. Family was dissatisfied with [facility] and patient's rooming situation and removed him from the facility and took him home. The patient was sundowning and confused at home and family brought him back to [facility] for mcc admission and assistance with placement at a different facility. Patient seen and examined at bedside. Mr. Jarrett offers no acute complaints. He denies any pain, CP, SOB. He is pleasantly confused, states, "I see" when told he is in the hospital. No acute nursing concerns. Family History: Unchanged from Admission Social History: Unchanged from Admission Past Medical History: Unchanged from Admission Objective Active Medications: Acetaminophen (Tylenol Tab*) 650 mg PO Q6H PRN PRN Reason: FEVER > 101 Aspirin (Aspirin Ec Low Dose*) 81 mg PO DAILY [facility] Last Admin: 02/09/17 07:20 Dose: 81 mg Docusate Sodium (Colace Cap*) 200 mg PO BID PRN PRN Reason: CONSTIPATION Heparin Sodium (Porcine) (Heparin Vial(*)) 5,000 units SUBCUT Q8HR [facility] Last Admin: 02/09/17 05:56 Dose: 5,000 units Levetiracetam (Keppra Tab*) 500 mg PO BID [facility] Last Admin: 02/09/17 07:20 Dose: 500 mg Losartan Potassium (Cozaar Tab*) 25 mg PO BEDTIME [facility] Last Admin: 02/08/17 20:22 Dose: 25 mg Losartan Potassium (Cozaar Tab*) 50 mg PO DAILY [facility] Last Admin: 02/09/17 07:20 Dose: 50 mg Metoprolol Tartrate (Lopressor Tab*) 25 mg PO DAILY [facility] Last Admin: 02/09/17 07:20 Dose: 25 mg Mirtazapine (Remeron Tab*) 7.5 mg PO BEDTIME [facility] Last Admin: 02/08/17 20:23 Dose: 7.5 mg Omeprazole (Prilosec Cap*) 20 mg PO DAILY [facility] Last Admin: 02/09/17 07:20 Dose: 20 mg Senna (Senokot Tab*) 2 tab PO BEDTIME PRN PRN Reason: CONSTIPATION Tamsulosin HCl (Flomax Cap*) 0.4 mg PO BEDTIME [facility] Last Admin: 02/08/17 20:23 Dose: 0.4 mg Vital Signs 02/08/17 02/08/17 02/08/17 16:00 16:30 17:00 Temperature Pulse Rate 66 47 66 Respiratory 17 18 19 Rate Blood Pressure 139/72 133/76 143/83 (mmHg) O2 Sat by Pulse 95 95 90 Oximetry 02/08/17 02/08/17 02/08/17 17:40 19:34 23:48 Temperature 97.2 F 97.4 F Pulse Rate 68 63 Respiratory 18 18 16 Rate Blood Pressure 152/72 146/82 (mmHg) O2 Sat by Pulse 94 94 Oximetry 02/09/17 02/09/17 07:26 07:32 Temperature Pulse Rate 53 Respiratory 16 16 Rate Blood Pressure 104/60 (mmHg) O2 Sat by Pulse 92 Oximetry Oxygen Devices in Use Now: None Appearance: Elderly male, OOB to chair, NAD Eyes: PERRLA Ears/Nose/Mouth/Throat: Mucous Membranes Moist Neck: NL Appearance and Movements; NL JVP Respiratory: Symmetrical Chest Expansion and Respiratory Effort, Clear to Auscultation Cardiovascular: NL Sounds; No Murmurs; No JVD, RRR Abdominal: NL Sounds; No Tenderness; No Distention Extremities: No Edema Neurological: - - Alert to self Lines/Tubes/Other Access: Clean, Dry and Intact Peripheral IV Nutrition: Taking PO's Result Diagrams: 02/08/17 11:59 02/08/17 11:59 Additional Lab and Data: Lab Results 02/08/17 02/08/17 02/08/17 Range/Units 11:59 11:59 11:59 WBC 7.7 (3.5-10.8) 10^3/ul RBC 4.66 (4.0-5.4) 10^6/ul Hgb 14.3 (14.0-18.0) g/dl Hct 43 (42-52) % MCV 92 (80-94) fL MCH 31 (27-31) pg MCHC 33 (31-36) g/dl RDW 14 (10.5-15) % Plt Count 262 (150-450) 10^3/ul MPV 8 (7.4-10.4) um3 Neut % (Auto) 68.2 (38-83) % Lymph % (Auto) 20.3 L (25-47) % Braxton % (Auto) 8.8 (1-9) % Eos % (Auto) 1.9 (0-6) % Baso % (Auto) 0.8 (0-2) % Absolute Neuts (auto) 5.3 (1.5-7.7) 10^3/ul Absolute Lymphs (auto) 1.6 (1.0-4.8) 10^3/ul Absolute Monos (auto) 0.7 (0-0.8) 10^3/ul Absolute Eos (auto) 0.1 (0-0.6) 10^3/ul Absolute Basos (auto) 0.1 (0-0.2) 10^3/ul Absolute Nucleated RBC 0 10^3/ul Nucleated RBC % 0 Sodium 136 (133-145) mmol/L Potassium 4.0 (3.5-5.0) mmol/L Chloride 104 (101-111) mmol/L Carbon Dioxide 22 (22-32) mmol/L Anion Gap 10 (2-11) mmol/L BUN 18 (6-24) mg/dL Creatinine 1.02 (0.67-1.17) mg/dL Est GFR ( Amer) 88.4 (>60) Est GFR (Non-Af Amer) 68.8 (>60) BUN/Creatinine Ratio 17.6 (8-20) Glucose 134 H (70-100) mg/dL Lactic Acid 2.6 H* (0.5-2.0) mmol/L Calcium 9.3 (8.6-10.3) mg/dL Total Bilirubin 0.90 (0.2-1.0) mg/dL AST 19 (13-39) U/L ALT 23 (7-52) U/L Alkaline Phosphatase 103 (34-104) U/L Ammonia (16-53) mol/L Total Creatine Kinase 16 (10-223) U/L Troponin I 0.02 (<0.04) ng/mL Total Protein 6.5 (6.4-8.9) g/dL Albumin 3.8 (3.2-5.2) g/dL Globulin 2.7 (2-4) g/dL Albumin/Globulin Ratio 1.4 (1-3) TSH 1.93 (0.34-5.60) mcIU/mL Urine Color Urine Appearance Urine pH (5-9) Ur Specific [place] (1.010-1.030) Urine Protein (Negative) Urine Ketones (Negative) Urine Blood (Negative) Urine Nitrate (Negative) Urine Bilirubin (Negative) Urine Urobilinogen (Negative) Ur Leukocyte Esterase (Negative) Urine WBC (Auto) (Absent) Urine RBC (Auto) (Absent) Ur Squamous Epith Cells (Absent) Urine Bacteria (Absent) Urine Glucose (Negative) 02/08/17 02/08/17 Range/Units 11:59 14:50 WBC (3.5-10.8) 10^3/ul RBC (4.0-5.4) 10^6/ul Hgb (14.0-18.0) g/dl Hct (42-52) % MCV (80-94) fL MCH (27-31) pg MCHC (31-36) g/dl RDW (10.5-15) % Plt Count (150-450) 10^3/ul MPV (7.4-10.4) um3 Neut % (Auto) (38-83) % Lymph % (Auto) (25-47) % Braxton % (Auto) (1-9) % Eos % (Auto) (0-6) % Baso % (Auto) (0-2) % Absolute Neuts (auto) (1.5-7.7) 10^3/ul Absolute Lymphs (auto) (1.0-4.8) 10^3/ul Absolute Monos (auto) (0-0.8) 10^3/ul Absolute Eos (auto) (0-0.6) 10^3/ul Absolute Basos (auto) (0-0.2) 10^3/ul Absolute Nucleated RBC 10^3/ul Nucleated RBC % Sodium (133-145) mmol/L Potassium (3.5-5.0) mmol/L Chloride (101-111) mmol/L Carbon Dioxide (22-32) mmol/L Anion Gap (2-11) mmol/L BUN (6-24) mg/dL Creatinine (0.67-1.17) mg/dL Est GFR ( Amer) (>60) Est GFR (Non-Af Amer) (>60) BUN/Creatinine Ratio (8-20) Glucose (70-100) mg/dL Lactic Acid (0.5-2.0) mmol/L Calcium (8.6-10.3) mg/dL Total Bilirubin (0.2-1.0) mg/dL AST (13-39) U/L ALT (7-52) U/L Alkaline Phosphatase (34-104) U/L Ammonia 44 (16-53) mol/L Total Creatine Kinase (10-223) U/L Troponin I (<0.04) ng/mL Total Protein (6.4-8.9) g/dL Albumin (3.2-5.2) g/dL Globulin (2-4) g/dL Albumin/Globulin Ratio (1-3) TSH (0.34-5.60) mcIU/mL Urine Color Yellow Urine Appearance Clear Urine pH 6.0 (5-9) Ur Specific [place] 1.012 (1.010-1.030) Urine Protein Negative (Negative) Urine Ketones Negative (Negative) Urine Blood Negative (Negative) Urine Nitrate Negative (Negative) Urine Bilirubin Negative (Negative) Urine Urobilinogen Negative (Negative) Ur Leukocyte Esterase 1+ H (Negative) Urine WBC (Auto) Trace(0-5/hpf) (Absent) Urine RBC (Auto) Trace(0-2/hpf) (Absent) Ur Squamous Epith Cells Present H (Absent) Urine Bacteria Absent (Absent) Urine Glucose Negative (Negative) Assess/Plan/Problems-Billing Assessment: Mr. Jarrett is an 89 yo male with recent fall and closed head injury who received rehab services in [facility] and was subsequently discharged to [facility] for additional subacute rehab on 02/07; family was dissatisfied with facility. Patient is now a mcc admission for placement in different facility. - Patient Problems (1) Weakness Code(s): R53.1 - WEAKNESS Comment: With recent closed head injury following a fall Patient received rehab services in [facility] and was discharged on 02/07/17 to [facility] for additional subacute rehab. Family was dissatisfied with facility and took patient home; patient's confusion was too much for them to handle and he was brought back for help with placement elsewhere. Continue PT/OT here in the hospital. CM/SW following for new placement needs. (2) Ataxia Code(s): R27.0 - ATAXIA, UNSPECIFIED Comment: In need of subacute rehab, per recommendations of [facility] Patient recently discharged from [facility] on 02/07/17. PT/OT eval (3) Seizure disorder Code(s): G40.909 - EPILEPSY, UNSP, NOT INTRACTABLE, WITHOUT STATUS EPILEPTICUS Comment: Continue Keppra. Seizure precautions (4) Hypertension Code(s): I10 - ESSENTIAL (PRIMARY) HYPERTENSION Comment: BP is under fair control. Continue losartan, metoprolol. (5) GERD (gastroesophageal reflux disease) Code(s): K21.9 - GASTRO-ESOPHAGEAL REFLUX DISEASE WITHOUT ESOPHAGITIS Comment : Continue omeprazole. (6) Constipation Code(s): K59.00 - CONSTIPATION, UNSPECIFIED Comment: [facility] 02/08 Continue senna and colace. (7) Dementia Code(s): F03.90 - UNSPECIFIED DEMENTIA WITHOUT BEHAVIORAL DISTURBANCE Comment : Previous dx of vascular dementia with behavioral disturbances Continue mirtazapine. (8) DVT prophylaxis Comment: SQ heparin (9) DNR (do not resuscitate) Status and Disposition: Inpatient admission. Correction admit. SW/CM following.
[2017-02-09] MEDS: Mirtazapine TAB* 15 MG PO SCH (20:18)
[2017-02-09] MEDS: Tamsulosin CAP* 0.4 MG PO SCH (20:18)
[2017-02-10] MEDS: Heparin VIAL(*) 5000 UNITS/ML VIAL (FIVE THOUSAND) SUBCUT SCH ×3 (06:09→21:22)
[2017-02-10] MEDS: Omeprazole CAP* 20 MG PO SCH (08:34)
[2017-02-10] MEDS: Aspirin EC Low Dose* 81 MG TAB.EC PO SCH (08:34)
[2017-02-10] MEDS: Metoprolol Tartrate TAB* 25 MG PO SCH (08:34)
[2017-02-10] MEDS: levETIRAcetam TAB* 500 MG PO SCH ×2 (08:34→20:30)
[2017-02-10] MEDS: Losartan TAB* 25 MG PO SCH ×2 (08:35→20:30)
--- NOTE | 2017-02-10 14:00 | PN ---
Subjective Date of Service: 02/10/17 Interval History: Patient seen and examined at bedside. Denies any complaint. Patient is pleasantly confused. Family History: Unchanged from Admission Social History: Unchanged from Admission Past Medical History: Unchanged from Admission Objective Active Medications: Acetaminophen (Tylenol Tab*) 650 mg PO Q6H PRN PRN Reason: FEVER > 101 Aspirin (Aspirin Ec Low Dose*) 81 mg PO DAILY [facility] Last Admin: 02/10/17 08:34 Dose: 81 mg Docusate Sodium (Colace Cap*) 200 mg PO BID PRN PRN Reason: CONSTIPATION Heparin Sodium (Porcine) (Heparin Vial(*)) 5,000 units SUBCUT Q8HR [facility] Last Admin: 02/10/17 13:29 Dose: 5,000 units Levetiracetam (Keppra Tab*) 500 mg PO BID [facility] Last Admin: 02/10/17 08:34 Dose: 500 mg Losartan Potassium (Cozaar Tab*) 25 mg PO BEDTIME [facility] Last Admin: 02/09/17 20:17 Dose: 25 mg Losartan Potassium (Cozaar Tab*) 50 mg PO DAILY [facility] Last Admin: 02/10/17 08:35 Dose: 50 mg Metoprolol Tartrate (Lopressor Tab*) 25 mg PO DAILY [facility] Last Admin: 02/10/17 08:34 Dose: 25 mg Mirtazapine (Remeron Tab*) 7.5 mg PO BEDTIME [facility] Last Admin: 02/09/17 20:18 Dose: 7.5 mg Omeprazole (Prilosec Cap*) 20 mg PO DAILY [facility] Last Admin: 02/10/17 08:34 Dose: 20 mg Senna (Senokot Tab*) 2 tab PO BEDTIME PRN PRN Reason: CONSTIPATION Tamsulosin HCl (Flomax Cap*) 0.4 mg PO BEDTIME [facility] Last Admin: 02/09/17 20:18 Dose: 0.4 mg Vital Signs 02/09/17 02/10/17 02/10/17 20:00 07:29 08:00 Temperature 97.4 F Pulse Rate 81 Respiratory 18 16 18 Rate Blood Pressure 128/65 (mmHg) O2 Sat by Pulse 96 Oximetry Oxygen Devices in Use Now: None Appearance: Elderly male, OOB to chair, NAD Respiratory: Symmetrical Chest Expansion and Respiratory Effort, Clear to Auscultation Cardiovascular: NL Sounds; No Murmurs; No JVD, RRR Abdominal: NL Sounds; No Tenderness; No Distention Result Diagrams: 02/08/17 11:59 02/08/17 11:59 Additional Lab and Data: Lab Results 02/08/17 02/08/17 02/08/17 Range/Units 11:59 11:59 11:59 WBC 7.7 (3.5-10.8) 10^3/ul RBC 4.66 (4.0-5.4) 10^6/ul Hgb 14.3 (14.0-18.0) g/dl Hct 43 (42-52) % MCV 92 (80-94) fL MCH 31 (27-31) pg MCHC 33 (31-36) g/dl RDW 14 (10.5-15) % Plt Count 262 (150-450) 10^3/ul MPV 8 (7.4-10.4) um3 Neut % (Auto) 68.2 (38-83) % Lymph % (Auto) 20.3 L (25-47) % Screven % (Auto) 8.8 (1-9) % Eos % (Auto) 1.9 (0-6) % Baso % (Auto) 0.8 (0-2) % Absolute Neuts (auto) 5.3 (1.5-7.7) 10^3/ul Absolute Lymphs (auto) 1.6 (1.0-4.8) 10^3/ul Absolute Monos (auto) 0.7 (0-0.8) 10^3/ul Absolute Eos (auto) 0.1 (0-0.6) 10^3/ul Absolute Basos (auto) 0.1 (0-0.2) 10^3/ul Absolute Nucleated RBC 0 10^3/ul Nucleated RBC % 0 Sodium 136 (133-145) mmol/L Potassium 4.0 (3.5-5.0) mmol/L Chloride 104 (101-111) mmol/L Carbon Dioxide 22 (22-32) mmol/L Anion Gap 10 (2-11) mmol/L BUN 18 (6-24) mg/dL Creatinine 1.02 (0.67-1.17) mg/dL Est GFR ( Amer) 88.4 (>60) Est GFR (Non-Af Amer) 68.8 (>60) BUN/Creatinine Ratio 17.6 (8-20) Glucose 134 H (70-100) mg/dL Lactic Acid 2.6 H* (0.5-2.0) mmol/L Calcium 9.3 (8.6-10.3) mg/dL Total Bilirubin 0.90 (0.2-1.0) mg/dL AST 19 (13-39) U/L ALT 23 (7-52) U/L Alkaline Phosphatase 103 (34-104) U/L Ammonia (16-53) mol/L Total Creatine Kinase 16 (10-223) U/L Troponin I 0.02 (<0.04) ng/mL Total Protein 6.5 (6.4-8.9) g/dL Albumin 3.8 (3.2-5.2) g/dL Globulin 2.7 (2-4) g/dL Albumin/Globulin Ratio 1.4 (1-3) TSH 1.93 (0.34-5.60) mcIU/mL Urine Color Urine Appearance Urine pH (5-9) Ur Specific [place] (1.010-1.030) Urine Protein (Negative) Urine Ketones (Negative) Urine Blood (Negative) Urine Nitrate (Negative) Urine Bilirubin (Negative) Urine Urobilinogen (Negative) Ur Leukocyte Esterase (Negative) Urine WBC (Auto) (Absent) Urine RBC (Auto) (Absent) Ur Squamous Epith Cells (Absent) Urine Bacteria (Absent) Urine Glucose (Negative) 02/08/17 02/08/17 Range/Units 11:59 14:50 WBC (3.5-10.8) 10^3/ul RBC (4.0-5.4) 10^6/ul Hgb (14.0-18.0) g/dl Hct (42-52) % MCV (80-94) fL MCH (27-31) pg MCHC (31-36) g/dl RDW (10.5-15) % Plt Count (150-450) 10^3/ul MPV (7.4-10.4) um3 Neut % (Auto) (38-83) % Lymph % (Auto) (25-47) % Screven % (Auto) (1-9) % Eos % (Auto) (0-6) % Baso % (Auto) (0-2) % Absolute Neuts (auto) (1.5-7.7) 10^3/ul Absolute Lymphs (auto) (1.0-4.8) 10^3/ul Absolute Monos (auto) (0-0.8) 10^3/ul Absolute Eos (auto) (0-0.6) 10^3/ul Absolute Basos (auto) (0-0.2) 10^3/ul Absolute Nucleated RBC 10^3/ul Nucleated RBC % Sodium (133-145) mmol/L Potassium (3.5-5.0) mmol/L Chloride (101-111) mmol/L Carbon Dioxide (22-32) mmol/L Anion Gap (2-11) mmol/L BUN (6-24) mg/dL Creatinine (0.67-1.17) mg/dL Est GFR ( Amer) (>60) Est GFR (Non-Af Amer) (>60) BUN/Creatinine Ratio (8-20) Glucose (70-100) mg/dL Lactic Acid (0.5-2.0) mmol/L Calcium (8.6-10.3) mg/dL Total Bilirubin (0.2-1.0) mg/dL AST (13-39) U/L ALT (7-52) U/L Alkaline Phosphatase (34-104) U/L Ammonia 44 (16-53) mol/L Total Creatine Kinase (10-223) U/L Troponin I (<0.04) ng/mL Total Protein (6.4-8.9) g/dL Albumin (3.2-5.2) g/dL Globulin (2-4) g/dL Albumin/Globulin Ratio (1-3) TSH (0.34-5.60) mcIU/mL Urine Color Yellow Urine Appearance Clear Urine pH 6.0 (5-9) Ur Specific [place] 1.012 (1.010-1.030) Urine Protein Negative (Negative) Urine Ketones Negative (Negative) Urine Blood Negative (Negative) Urine Nitrate Negative (Negative) Urine Bilirubin Negative (Negative) Urine Urobilinogen Negative (Negative) Ur Leukocyte Esterase 1+ H (Negative) Urine WBC (Auto) Trace(0-5/hpf) (Absent) Urine RBC (Auto) Trace(0-2/hpf) (Absent) Ur Squamous Epith Cells Present H (Absent) Urine Bacteria Absent (Absent) Urine Glucose Negative (Negative) Assess/Plan/Problems-Billing Assessment: Mr. Jarrett is an 89 yo male with recent fall and closed head injury who received rehab services in [facility] and was subsequently discharged to [facility] for additional subacute rehab on 02/07; family was dissatisfied with facility. Patient is now a half-way admission for placement in different facility. - Patient Problems (1) Abnormal finding in urine Code(s): R82.90 - UNSPECIFIED ABNORMAL FINDINGS IN URINE Comment: Pseudomonas growth seen in urine cx, [id number] Discussed in side consult with ID In absence of sepsis, fever, or other urinary/infectious symptoms, this likely represents a colonization. Will monitor closely for any hemodynamic changes. No abx treatment at this time. (2) Weakness Code(s): R53.1 - WEAKNESS Comment: With recent closed head injury following a fall Patient received rehab services in [facility] and was discharged on 02/07/17 to [facility] for additional subacute rehab. Family was dissatisfied with facility and took patient home; patient's confusion was too much for them to handle and he was brought back for help with placement elsewhere. Continue PT/OT here in the hospital. CM/SW following for new placement needs. (3) Ataxia Code(s): R27.0 - ATAXIA, UNSPECIFIED Comment: In need of subacute rehab, per recommendations of [facility] Patient recently discharged from [facility] on 02/07/17. PT/OT eval (4) Seizure disorder Code(s): G40.909 - EPILEPSY, UNSP, NOT INTRACTABLE, WITHOUT STATUS EPILEPTICUS Comment: Continue Keppra. Seizure precautions (5) Hypertension Code(s): I10 - ESSENTIAL (PRIMARY) HYPERTENSION Comment: BP is under fair control. Continue losartan, metoprolol. (6) GERD (gastroesophageal reflux disease) Code(s): K21.9 - GASTRO-ESOPHAGEAL REFLUX DISEASE WITHOUT ESOPHAGITIS Comment : Continue omeprazole. (7) Constipation Code(s): K59.00 - CONSTIPATION, UNSPECIFIED Comment: [facility] 02/08 Continue senna and colace. (8) Dementia Code(s): F03.90 - UNSPECIFIED DEMENTIA WITHOUT BEHAVIORAL DISTURBANCE Comment : Previous dx of vascular dementia with behavioral disturbances Continue mirtazapine. (9) DVT prophylaxis Comment: SQ heparin (10) DNR (do not resuscitate) Status and Disposition: Inpatient admission. Detention admit. SW/CM following.
--- NOTE | 2017-02-10 16:21 | PN ---
Hospitalist Progress Note 30 minutes spent in conversation with patient's Kelley. Kelley Jarrett was very verbally aggressive and accusatory that this personal lines underwriter had diagnosed the patient with dementia. I did explain that the patient had a previously documented diagnosis that was made during his last admission and that my interaction and care of the patient was limited to these past few days. I did also verbally review the consultations and notes from last admission and the concern that the patient sundowns. She states that the diagnosis of dementia is preventing the patient from being placed on the regular rehab unit as opposed to the dementia units. I explained again that this diagnosis is found and originated in the previous admission notes and that medical records will carry all medical diagnoses previously made. She blamed this personal lines underwriter for keeping him out of rehab and states, "We're paying for him to go to [facility] and you're going to get him there." I advised the patient's to continue discussion with social work. She demanded that Dr. Concepcion be made aware of the situation. I advised her to call Dr. Concepcion's office; she then demanded that neurology change the diagnosis. I explained that this would be a consult, which I could make. She then stated, "How much is that going to cost me?" The conversation continued to persist in this fashion, with Ms. Jarrett continuing to blame me for "keeping him out of [facility]" and "perpetuating a nasty lie." She states, "No one ever told me this and Dr. Concepcion says it isn't true." I apologized for the confusion and offered to contact neurology and Andreia Smith. Ms. Jarrett persisted in the previous line of conversation. I encouraged her to follow-up with , patient relations, and neurology and offered to contact neurology here in the hospital as well as Andreia Smith.
[2017-02-10] MEDS: Mirtazapine TAB* 15 MG PO SCH (20:29)
[2017-02-10] MEDS: Tamsulosin CAP* 0.4 MG PO SCH (20:30)
[2017-02-11] MEDS: Heparin VIAL(*) 5000 UNITS/ML VIAL (FIVE THOUSAND) SUBCUT SCH ×3 (05:23→21:29)
[2017-02-11] MEDS: Losartan TAB* 25 MG PO SCH ×2 (10:03→20:40)
[2017-02-11] MEDS: Metoprolol Tartrate TAB* 25 MG PO SCH (10:04)
[2017-02-11] MEDS: Aspirin EC Low Dose* 81 MG TAB.EC PO SCH (10:04)
[2017-02-11] MEDS: Omeprazole CAP* 20 MG PO SCH (10:04)
[2017-02-11] MEDS: levETIRAcetam TAB* 500 MG PO SCH ×2 (10:04→20:40)
[2017-02-11] MEDS: Mirtazapine TAB* 15 MG PO SCH (20:40)
[2017-02-11] MEDS: Tamsulosin CAP* 0.4 MG PO SCH (20:41)
[2017-02-12] MEDS: Heparin VIAL(*) 5000 UNITS/ML VIAL (FIVE THOUSAND) SUBCUT SCH ×3 (06:14→21:06)
[2017-02-12] MEDS: Metoprolol Tartrate TAB* 25 MG PO SCH (10:07)
[2017-02-12] MEDS: Losartan TAB* 25 MG PO SCH ×2 (10:07→21:06)
[2017-02-12] MEDS: Omeprazole CAP* 20 MG PO SCH (10:07)
[2017-02-12] MEDS: levETIRAcetam TAB* 500 MG PO SCH ×2 (10:07→21:06)
[2017-02-12] MEDS: Aspirin EC Low Dose* 81 MG TAB.EC PO SCH (10:07)
--- NOTE | 2017-02-12 16:42 | CONS ---
CC: Dr. Concepcion; Dr. May * NEUROLOGY CONSULTATION: DATE OF CONSULT: 02/12/17 REQUESTING PROVIDER: Dorcas Orellana NP. REASON FOR CONSULT: Family is questioning diagnosis of dementia. OUTPATIENT NEUROLOGIST: Dr. Concepcion. PRIMARY CARE PHYSICIAN: Dr. May. HISTORY OF PRESENT ILLNESS: Brendon Jarrett is an 89-year-old man with a history of cognitive impairment, seizure disorder, peripheral neuropathy, gait abnormalities, hypertension, aortic valve replacement, and recent fall with a closed injury for which he was hospitalized from 01/17/17 until 01/24/17 and then transferred to the [facility] until 02/07/17, who was readmitted to the hospital under correction care on 02/08/17. He had been discharged to [facility] for rehab , but upon arrival, when the family saw that he was far from the nurses' station and was set to be rooming with a patient who was yelling constantly, they did not feel comfortable leaving him there and they took him home. However , they were not able to manage his needs at home and brought him back to the hospital and he has been admitted under correction care since 02/08/17. Dorcas Orellana NP., indicates that the family, and in particular Mrs. Jarrett, have been upset that a diagnosis of dementia has been listed in his chart. They are concerned what this will mean for his rehab options and, in addition, they have expressed that they do not feel that he is demented. Dr. Concepcion has followed the patient for his seizure disorder as well as some cognitive impairment and saw the patient most recently in June. No formal assessment of his cognition has been done recently because the family has indicated that he has been relatively stable over the past few years in their followup visits with her. Today, the son indicates that they have noticed a slow, but progressive decline in his cognition. They indicate that he does not sundown at home, but he does tend to do so when in the hospital. For example, he was making comments the other night as though he was in an apartment. They indicate that at home there has never been any indication of disorientation to time. He has not been able to do many of the things he used to do around the home, but they feel this is more related to his age and other medical problems including his gait problem, than to his cognition necessarily. I was asked to evaluate the patient for dementia, given the 's request to have this diagnosis stricken from his chart. Mr. Jarrett indicates today that he is feeling okay. He appears depressed and when questioned on this he admits to being down in the dumps lately and his says that he has been down more over the past 6 months. As mentioned, he was recently in the hospital for closed head injury and when asked today he cannot recall the details of his fall. It is unclear whether he may have suffered a concussion as a result of that fall. He was amenable to undergoing the Fabiano Cognitive Assessment during my evaluation today. I note that previously in 2013 he scored a 20/30. PAST MEDICAL HISTORY: 1. Peripheral neuropathy. 2. Ataxia. 3. Recent closed head injury. 4. Seizure disorder. 5. Hypertension. 6. Cognitive impairment. 7. GERD. 8. Aortic valve replacement. CURRENT MEDICATIONS: 1. Tylenol p.r.n. 2. Aspirin 81 mg. 3. Colace p.r.n. 4. Heparin 5000 units q.8 hours. 5. Levetiracetam 500 mg b.i.d. 6. Cozaar 25 mg at bedtime. 7. Cozaar 50 mg in the morning. 8. Lopressor 25 mg daily. 9. Remeron 7.5 mg at bedtime. 10. Prilosec 20 mg daily. 11. Senna p.r.n. 12. Flomax 0.4 mg at bedtime. ALLERGIES: No known drug allergies. FAMILY HISTORY: Significant for hypertension, coronary artery disease and hyperlipidemia. SOCIAL HISTORY: He previously lived at home with his . Several of his children live in houses neighboring his. 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 He quit smoking many, many years ago. He has rare alcohol use. REVIEW OF SYSTEMS: As per the HPI, otherwise negative. PHYSICAL EXAMINATION: Vital Signs: Temperature 97.3, blood pressure 150/83, heart rate 75, and oxygen saturation is 94% on room air. This was done yesterday evening. On general evaluation, he was sitting up in bed, picking at his lunch. He had not eaten much. On the Fabiano Cognitive Assessment (MOCA) he scored a 9/30, plus 1 point for 12 years of education so he got 10/30. His previous test 3 years ago was 20/ 30. He lost 4 points in visuospatial/executive tasks, only receiving a point for hand placement on the clock. He lost 1 point for naming, being unable to come up with rhinoceros. He was unable to register the 5 words given and consistently jumbled words together, thinking that he had heard Fish and Crazy as some of the words. Digit span was abnormal. Serial 7s was abnormal, and letter span was also abnormal. Language was notable for him only being able to come up with 3 words in 60 seconds and he seemed to have some possible thought blocking as well as was not motivated to do the task. He had an error in repetition in a complex sentence. He was unable to state what was similar between a watch and a ruler. He was able to recall none of the 5 words given to him earlier in the test. He was not oriented to the month, the day or the year or the day of the week, but was oriented to the hospital and the city. Otherwise, on observation, his speech was dysarthric and quite difficult to understand. At times he spoke quickly, which made it even more difficult to understand him. There was no obvious facial droop. He was able to lift both arms antigravity. The rest of the formal neurologic examination was deferred. DIAGNOSTIC STUDIES/LAB DATA: Laboratory data was reviewed, including a CBC, chemistry panel, and urinalysis upon his admission and overall was unremarkable aside from a lactate of 2.6 at 11:59 on 02/08/17, which came down to 2.1 on at 11:30. His ammonia was 40. Urinalysis was only with 1+ leukocyte esterase. He had a brain CT upon his admission, which was unremarkable for any acute process, but showed stable chronic periventricular and subcortical white matter hypoattenuation which was not significantly changed from previous. IMPRESSION: Brendon Jarrett is an 89-year-old man with a history of seizure disorder as well as cognitive impairment, which was noted approximately 3 years or more ago, who recently had a hospital stay after a closed head injury including a rehab stay and now is readmitted under correction care when his family found the rehab facility to be suboptimal. I was asked to evaluate the patient for the question of dementia, which has appeared as a diagnosis on the patient's chart at some point in all of these transitions of care. I explained to his and his son today that he performed quite poorly on the MOCA today, scoring a 9/30, and there are several reasons why this may be. First I explained that this is not an entirely fair assessment of his cognition given the fact that he is not at his baseline, he has recently had a head injury and if he could have had a concussion as a result of that, that could affect his cognition, he also endorses depression, which untreated can affect cognition and memory, and he is not in his usual environment. Nevertheless, with a score of 9/30, I explained that he most likely has at least a mild dementia and I explained that a certain percentage of people with a mild cognitive impairment do progress into an early stage of dementia each year. I explained that at this point, given this assessment, I cannot say that he does not have dementia, and rather I think it is likely that he has at least a mild degree of dementia. It seems that there is a significant stigma that the family associates with this diagnosis and we talked about the spectrum of disease from very mild symptoms all the way to end stage dementia. It seems that what they have in their mind when they hear the word dementia is more of end stage disease where patient's cannot recognize the family members and cannot attend to their basic needs, but I explained that most of the patient's with dementia do not necessarily fall into that category and are on the more [id number] end of the spectrum. With this, they seemed a little bit more accepting of this potential diagnosis and understanding that it cannot be necessarily stricken from the chart based on my evaluation today. Their main concern of course is finding a safe place for their loved one, which would meet their standards and it sounds like they are looking into several options on their own. I answered all questions to the best of my ability and if anything else comes up , please let me know and I would be happy to come back by and speak with the family. [id number]/[facility] #: [id number] VISHAL
[2017-02-12] MEDS: Mirtazapine TAB* 15 MG PO SCH (21:06)
[2017-02-12] MEDS: Tamsulosin CAP* 0.4 MG PO SCH (21:06)
[2017-02-13] MEDS: Heparin VIAL(*) 5000 UNITS/ML VIAL (FIVE THOUSAND) SUBCUT SCH ×2 (05:33→15:00)
[2017-02-13 07:50] VITALS: BP 139/86
[2017-02-13] MEDS: Losartan TAB* 25 MG PO SCH (10:19)
[2017-02-13] MEDS: Metoprolol Tartrate TAB* 25 MG PO SCH (10:20)
[2017-02-13] MEDS: levETIRAcetam TAB* 500 MG PO SCH (10:20)
[2017-02-13] MEDS: Aspirin EC Low Dose* 81 MG TAB.EC PO SCH (10:20)
[2017-02-13] MEDS: Omeprazole CAP* 20 MG PO SCH (10:20)
--- NOTE | 2017-02-13 11:57 | PN ---
Subjective Date of Service: 02/13/17 Interval History: Mr. Jarrett reportedly had little sleep overnight. This morning, he reports fatigue but denies other acute complaint. Family History: Unchanged from Admission Social History: Unchanged from Admission Past Medical History: Unchanged from Admission Objective Active Medications: Acetaminophen (Tylenol Tab*) 650 mg PO Q6H PRN PRN Reason: FEVER > 101 Aspirin (Aspirin Ec Low Dose*) 81 mg PO DAILY [facility] Last Admin: 02/13/17 10:20 Dose: 81 mg Docusate Sodium (Colace Cap*) 200 mg PO BID PRN PRN Reason: CONSTIPATION Heparin Sodium (Porcine) (Heparin Vial(*)) 5,000 units SUBCUT Q8HR [facility] Last Admin: 02/13/17 05:33 Dose: 5,000 units Levetiracetam (Keppra Tab*) 500 mg PO BID [facility] Last Admin: 02/13/17 10:20 Dose: 500 mg Losartan Potassium (Cozaar Tab*) 25 mg PO BEDTIME [facility] Last Admin: 02/12/17 21:06 Dose: 25 mg Losartan Potassium (Cozaar Tab*) 50 mg PO DAILY [facility] Last Admin: 02/13/17 10:19 Dose: 50 mg Metoprolol Tartrate (Lopressor Tab*) 25 mg PO DAILY [facility] Last Admin: 02/13/17 10:20 Dose: 25 mg Mirtazapine (Remeron Tab*) 7.5 mg PO BEDTIME [facility] Last Admin: 02/12/17 21:06 Dose: 7.5 mg Omeprazole (Prilosec Cap*) 20 mg PO DAILY [facility] Last Admin: 02/13/17 10:20 Dose: 20 mg Senna (Senokot Tab*) 2 tab PO BEDTIME PRN PRN Reason: CONSTIPATION Tamsulosin HCl (Flomax Cap*) 0.4 mg PO BEDTIME [facility] Last Admin: 02/12/17 21:06 Dose: 0.4 mg Vital Signs 02/12/17 02/13/17 20:00 07:21 Temperature 97.5 F Pulse Rate 66 Respiratory 16 15 Rate Blood Pressure 139/86 (mmHg) O2 Sat by Pulse 95 Oximetry Oxygen Devices in Use Now: None Appearance: Elderly male, OOB to chair, NAD Ears/Nose/Mouth/Throat: Mucous Membranes Moist Respiratory: Symmetrical Chest Expansion and Respiratory Effort, Clear to Auscultation Cardiovascular: NL Sounds; No Murmurs; No JVD, RRR Abdominal: NL Sounds; No Tenderness; No Distention Extremities: No Edema Neurological: - - Oriented to self, place Result Diagrams: 02/08/17 11:59 02/08/17 11:59 Additional Lab and Data: Lab Results 02/08/17 02/08/17 02/08/17 Range/Units 11:59 11:59 11:59 WBC 7.7 (3.5-10.8) 10^3/ul RBC 4.66 (4.0-5.4) 10^6/ul Hgb 14.3 (14.0-18.0) g/dl Hct 43 (42-52) % MCV 92 (80-94) fL MCH 31 (27-31) pg MCHC 33 (31-36) g/dl RDW 14 (10.5-15) % Plt Count 262 (150-450) 10^3/ul MPV 8 (7.4-10.4) um3 Neut % (Auto) 68.2 (38-83) % Lymph % (Auto) 20.3 L (25-47) % [place] % (Auto) 8.8 (1-9) % Eos % (Auto) 1.9 (0-6) % Baso % (Auto) 0.8 (0-2) % Absolute Neuts (auto) 5.3 (1.5-7.7) 10^3/ul Absolute Lymphs (auto) 1.6 (1.0-4.8) 10^3/ul Absolute Monos (auto) 0.7 (0-0.8) 10^3/ul Absolute Eos (auto) 0.1 (0-0.6) 10^3/ul Absolute Basos (auto) 0.1 (0-0.2) 10^3/ul Absolute Nucleated RBC 0 10^3/ul Nucleated RBC % 0 Sodium 136 (133-145) mmol/L Potassium 4.0 (3.5-5.0) mmol/L Chloride 104 (101-111) mmol/L Carbon Dioxide 22 (22-32) mmol/L Anion Gap 10 (2-11) mmol/L BUN 18 (6-24) mg/dL Creatinine 1.02 (0.67-1.17) mg/dL Est GFR ( Amer) 88.4 (>60) Est GFR (Non-Af Amer) 68.8 (>60) BUN/Creatinine Ratio 17.6 (8-20) Glucose 134 H (70-100) mg/dL Lactic Acid 2.6 H* (0.5-2.0) mmol/L Calcium 9.3 (8.6-10.3) mg/dL Total Bilirubin 0.90 (0.2-1.0) mg/dL AST 19 (13-39) U/L ALT 23 (7-52) U/L Alkaline Phosphatase 103 (34-104) U/L Ammonia (16-53) mol/L Total Creatine Kinase 16 (10-223) U/L Troponin I 0.02 (<0.04) ng/mL Total Protein 6.5 (6.4-8.9) g/dL Albumin 3.8 (3.2-5.2) g/dL Globulin 2.7 (2-4) g/dL Albumin/Globulin Ratio 1.4 (1-3) TSH 1.93 (0.34-5.60) mcIU/mL Urine Color Urine Appearance Urine pH (5-9) Ur Specific [place] (1.010-1.030) Urine Protein (Negative) Urine Ketones (Negative) Urine Blood (Negative) Urine Nitrate (Negative) Urine Bilirubin (Negative) Urine Urobilinogen (Negative) Ur Leukocyte Esterase (Negative) Urine WBC (Auto) (Absent) Urine RBC (Auto) (Absent) Ur Squamous Epith Cells (Absent) Urine Bacteria (Absent) Urine Glucose (Negative) 02/08/17 02/08/17 Range/Units 11:59 14:50 WBC (3.5-10.8) 10^3/ul RBC (4.0-5.4) 10^6/ul Hgb (14.0-18.0) g/dl Hct (42-52) % MCV (80-94) fL MCH (27-31) pg MCHC (31-36) g/dl RDW (10.5-15) % Plt Count (150-450) 10^3/ul MPV (7.4-10.4) um3 Neut % (Auto) (38-83) % Lymph % (Auto) (25-47) % [place] % (Auto) (1-9) % Eos % (Auto) (0-6) % Baso % (Auto) (0-2) % Absolute Neuts (auto) (1.5-7.7) 10^3/ul Absolute Lymphs (auto) (1.0-4.8) 10^3/ul Absolute Monos (auto) (0-0.8) 10^3/ul Absolute Eos (auto) (0-0.6) 10^3/ul Absolute Basos (auto) (0-0.2) 10^3/ul Absolute Nucleated RBC 10^3/ul Nucleated RBC % Sodium (133-145) mmol/L Potassium (3.5-5.0) mmol/L Chloride (101-111) mmol/L Carbon Dioxide (22-32) mmol/L Anion Gap (2-11) mmol/L BUN (6-24) mg/dL Creatinine (0.67-1.17) mg/dL Est GFR ( Amer) (>60) Est GFR (Non-Af Amer) (>60) BUN/Creatinine Ratio (8-20) Glucose (70-100) mg/dL Lactic Acid (0.5-2.0) mmol/L Calcium (8.6-10.3) mg/dL Total Bilirubin (0.2-1.0) mg/dL AST (13-39) U/L ALT (7-52) U/L Alkaline Phosphatase (34-104) U/L Ammonia 44 (16-53) mol/L Total Creatine Kinase (10-223) U/L Troponin I (<0.04) ng/mL Total Protein (6.4-8.9) g/dL Albumin (3.2-5.2) g/dL Globulin (2-4) g/dL Albumin/Globulin Ratio (1-3) TSH (0.34-5.60) mcIU/mL Urine Color Yellow Urine Appearance Clear Urine pH 6.0 (5-9) Ur Specific [place] 1.012 (1.010-1.030) Urine Protein Negative (Negative) Urine Ketones Negative (Negative) Urine Blood Negative (Negative) Urine Nitrate Negative (Negative) Urine Bilirubin Negative (Negative) Urine Urobilinogen Negative (Negative) Ur Leukocyte Esterase 1+ H (Negative) Urine WBC (Auto) Trace(0-5/hpf) (Absent) Urine RBC (Auto) Trace(0-2/hpf) (Absent) Ur Squamous Epith Cells Present H (Absent) Urine Bacteria Absent (Absent) Urine Glucose Negative (Negative) Assess/Plan/Problems-Billing Assessment: Mr. Jarrett is an 89 yo male with recent fall and closed head injury who received rehab services in [facility] and was subsequently discharged to [facility] for additional subacute rehab on 02/07; family was dissatisfied with facility. Patient is now a long-term admission for placement in different facility. - Patient Problems (1) Abnormal finding in urine Code(s): R82.90 - UNSPECIFIED ABNORMAL FINDINGS IN URINE Comment: Suspect colonization Pseudomonas growth seen in urine cx, [id number] Discussed in side consult with ID No s/s of sepsis or acute infection. No abx treatment indicated at this time. (2) Weakness Code(s): R53.1 - WEAKNESS Comment: With recent closed head injury following a fall Patient received rehab services in [facility] and was discharged on 02/07/17 to [facility] for additional subacute rehab. Family was dissatisfied with facility and took patient home; patient's confusion was too much for them to handle and he was brought back for help with placement elsewhere. Continue PT/OT here in the hospital. CM/SW following for new placement needs. (3) Ataxia Code(s): R27.0 - ATAXIA, UNSPECIFIED Comment: In need of subacute rehab, per recommendations of [facility] Patient recently discharged from [facility] on 02/07/17. PT/OT eval (4) Seizure disorder Code(s): G40.909 - EPILEPSY, UNSP, NOT INTRACTABLE, WITHOUT STATUS EPILEPTICUS Comment: Continue Keppra. Seizure precautions (5) Hypertension Code(s): I10 - ESSENTIAL (PRIMARY) HYPERTENSION Comment: Mostly normotensive Continue losartan, metoprolol. (6) GERD (gastroesophageal reflux disease) Code(s): K21.9 - GASTRO-ESOPHAGEAL REFLUX DISEASE WITHOUT ESOPHAGITIS Comment : Continue omeprazole. (7) Constipation Code(s): K59.00 - CONSTIPATION, UNSPECIFIED Comment: [facility] 02/08 Continue senna and colace. (8) Dementia Code(s): F03.90 - UNSPECIFIED DEMENTIA WITHOUT BEHAVIORAL DISTURBANCE Comment : Previous dx of vascular dementia with behavioral disturbances Continue mirtazapine. (9) DVT prophylaxis Comment: SQ heparin (10) DNR (do not resuscitate) Status and Disposition: Inpatient admission. [facility] admit. D/c to [place].
--- NOTE | 2017-02-13 13:08 | DS ---
DATE OF ADMISSION: 02/08/2017. DATE OF DISCHARGE: 02/13/2017. PROVIDER: Winter Villanueva NP. ATTENDING PHYSICIAN: Dr. Solo Lockwood* (as dictated by Winter Villanueva NP). CONSULTING PHYSICIAN: Dr. Rebecca Carias, Neurology. PRIMARY CARE PHYSICIAN: Dr. Karthik May. PRIMARY DISCHARGE DIAGNOSIS: 1. Physical deconditioning and weakness. 2. Halfway admission. SECONDARY DISCHARGE DIAGNOSES: 1. Peripheral neuropathy. 2. Ataxia. 3. Closed head injury. 4. Seizure disorder. 5. Hypertension. 6. History of aortic valve replacement. 7. GERD. 8. Cognitive impairment with sundowning. MEDICATIONS AT DISCHARGE: 1. Aspirin 81 mg daily. 2. Vitamin B12 1000 mcg IM q.30 days, next due on 02/27/2017. 3. Advil 200 mg q.8 hours prn. 4. Keppra 500 mg b.i.d. 5. Cozaar 25 mg at bedtime and 50 mg in the morning. 6. Lopressor 25 mg daily. 7. Remeron 7.5 mg at bedtime. 8. Prilosec 20 mg daily. 9. Flomax 0.4 mg at bedtime. 10. Senokot two tabs p.o. daily at bedtime as needed. HOSPITAL COURSE OF STAY: For full details, please refer to the history and physical provided by nurse practitioner Jody Aviles. In summary, Mr. Jarrett is an 89-year-old gentleman who was brought in to the hospital on 02/08/2017 by his family. This gentleman was recently hospitalized at [facility] from 01/17/2017 to 01/24/2017 after sustaining a recent fall with a closed head injury and progressive gait instability and progressive cognitive decline. He was transferred to [facility] for rehab services from 01/24/2017 to 02/07/2017 and then was transferred to [facility] for further subacute rehab with PT, OT, and speech therapy services. The patient arrived to the facility at [facility] and reported that he was admitted to the "dementia unit" due to his history of sundowning at night. The patient's family was told that the patient could still have rehab no matter what unit he was on , but they were upset by this and they removed him from the facility and took him back home. The patient was up all night long with sundowning and noted confusion and they were unable to care for him and brought him back in to the hospital as a prison admission and for new placement. Here in the hospital, the patient received PT, OT and speech services. The patient's most recent swallow study showed that he was able to tolerate thin liquids and regular solids. He is swallowing his pills well. He has been working with Physical Therapy and Occupational Therapy who state that he had met inpatient PT goals and recommends further mobility work and rehabilitation. In the progress of trying to get the patient placed to a different facility, the issue of the patient's cognitive impairment became a point of contention with the family. They were very upset by the diagnosis of dementia in the patient's chart. Upon review of the chart, it is seen that the patient was seen by a neurologist on his prior admission following the fall and there was concern for progressive cognitive impairment and decline. In the PMRU, the patient had a diagnosis of multi-infarct dementia placed in the chart. This was , of course, carried through the medical record. Per the request of the family , I did have a neurologist see the patient here while he was waiting for new placement. The patient underwent the Fabiano Cognitive Assessment via Neurology. At that time, he scored a 9/30 which shows concern for decreased cognition. While we recognize that this is not an entirely fair assessment of the patient's cognition, given that he is here in the hospital, he is not at his baseline, he has had a recent head injury and possible a concussion, and that he also endorses depression, it was explained to the family that this may still indicate that he does have at least some mild cognitive impairment which may progress into an early mild form of dementia. Dr. Carias spent time with the family to explain this as they had a misunderstanding of the medical diagnosis of dementia, as well as a concern for the stigma that is associated with this diagnosis. In any case, the patient here has been cooperative and does exhibit occasional sundowning behaviors, but for the most part has been participating well with the therapists and nursing staff. We have had to make no changes to his medications or add any antipsychotics while he has been here. The patient's family have reviewed [facility]. At the time of discharge, the patient's vital signs are stable with a temperature of 97.5, heart rate of 66, respiratory rate of 16, blood pressure 139/86, and O2 saturation 95 percent. ASSESSMENT: Patient is out of bed to chair. He is alert and awake. At time of assessment, he is oriented to self and mildly to place, disoriented to time, not oriented to situation. HEENT: Head is atraumatic, normocephalic. Face is symmetrical. Pupils are equal, round and reactive to light. Oral mucosa appears moist. Neck is supple. Cardiac: S1, S2 heart sounds. Regular rate and rhythm. Lungs: Clear to auscultation. Abdomen: Soft, nontender. Patient is tolerating p.o. intake. No peripheral edema noted. CONCERNS AT DISCHARGE: Mr. Jarrett will be discharged to [facility] on 02/13/2017. He is to follow-up with the facility physician or Dr. May. OUTPATIENT FOLLOW-UP NEEDS: The patient may benefit from further neurological evaluation in the future and has followed previously with Dr. Concepcion. DIET: Regular diet. The patient can have regular solids and thin liquids. ACTIVITY: As tolerated. CONDITION: Stable. [facility]. TIME SPENT: Time spent on this discharge was approximately 45 minutes. Again, this is only a brief summary of the patient's hospital course of stay. For full details, please refer to the full medical record. If you have any further questions or need further assistance, please feel free to contact me at . WINTER VILLANUEVA NP CC: Dr. Karthik May; [facility]* [id number]/[facility] #: [id number] MTDD
== END 2017-02-13 14:20 | DRG 948 ==
LOC: ED 11:27 → MED 15:38
PROVIDERS: ADMIT Internal Medicine; ATTEND Hospitalist
DX: R53.1 Weakness (principal); F05 Delirium due to known physiological condition; G62.9 Polyneuropathy, unspecified; R27.0 Ataxia, unspecified; I10 Essential (primary) hypertension; K21.9 Gastro-esophageal reflux disease without esophagitis; K59.00 Constipation, unspecified; Z66 Do not resuscitate; R82.71 Bacteriuria; N40.0 Benign prostatic hyperplasia without lower urinary tract symptoms; H26.9 Unspecified cataract; F32.9 Major depressive disorder, single episode, unspecified; F41.9 Anxiety disorder, unspecified; G40.909 Epilepsy, unspecified, not intractable, without status epilepticus; G31.84 Mild cognitive impairment of uncertain or unknown etiology; Z79.82 Long term (current) use of aspirin; Z95.2 Presence of prosthetic heart valve; Z82.49 Family history of ischemic heart disease and other diseases of the circulatory system; Z87.891 Personal history of nicotine dependence; Z95.0 Presence of cardiac pacemaker; Z87.820 Personal history of traumatic brain injury
CPT/HCPCS: 36415; 70450; 71010; 80053; 81003; 81015; 82140; 82550; 83605; 84443; 84484; 85025; 87077; 87086; 87186; 93005; A9270-GY; J1644

== ENCOUNTER 2017-04-12 06:57 | Emergency (ER) | payer MEDICARE ==
[2017-04-12] MEDS ORDERED: NS 0.9% 1000 ML* 1,000 ML IV SCH (08:15)
[2017-04-12 08:22] LABS: Hematocrit 36 % (42-52); Hemoglobin 12.3 g/dl (14.0-18.0); Mean Corpuscular HGB Conc 34 g/dl (31-36); Mean Corpuscular Hemoglobin 31 pg (27-31); Mean Corpuscular Volume 91 fL (80-94); Mean Platelet Volume 8 um3 (7.4-10.4); Red Blood Count 4.02 10^6/ul (4.0-5.4); Red Cell Distribution Width 14 % (10.5-15); White Blood Count 7.1 10^3/ul (3.5-10.8)
--- NOTE | 2017-04-12 08:41 | RAD ---
HISTORY: Shortness of breath COMPARISONS: February 08, 2017 VIEWS:1: Single frontal portable view of the chest at 7:25 AM FINDINGS: LINES AND TUBES: A left-sided pacemaker is noted CARDIOMEDIASTINAL SILHOUETTE: The cardiomediastinal silhouette is normal for portable technique. PLEURA: The costophrenic angles are sharp. No pleural abnormalities are noted. LUNG PARENCHYMA: The lungs are clear. ABDOMEN: The upper abdomen is clear. There is no subphrenic gas. BONES AND SOFT TISSUES: The patient is status post median sternotomy. IMPRESSION: NO ACTIVE CARDIOPULMONARY DISEASE.
[2017-04-12 08:42] LABS: Albumin 3.4 g/dL (3.2-5.2); BUN/Creatinine Ratio 15.2 (8-20); C Reactive Protein 1.41 mg/L (< 5.00); Calcium 9.3 mg/dL (8.6-10.3); EGFR African American 85.5 (>60); EGFR Non-African American 66.5 (>60); Globulin 2.4 g/dL (2-4); Magnesium 1.9 mg/dL (1.9-2.7); Total Bilirubin 0.5 mg/dL (0.2-1.0); Total Protein 5.8 g/dL (6.4-8.9)
[2017-04-12 08:43] LABS: Troponin I 0.01 ng/mL (<0.04)
[2017-04-12 08:48] LABS: Digoxin 0.2 ng/ml (0.8-2.0)
[2017-04-12 08:52] LABS: Potassium 3.5 mmol/L (3.5-5.0)
[2017-04-12 08:58] LABS: TSH (Thyroid Stimulating Horm) 1.39 mcIU/mL (0.34-5.60)
[2017-04-12 11:16] LABS: Urine Bacteria Absent (Absent); Urine Bilirubin Negative (Negative); Urine Glucose Negative (Negative); Urine Nitrite Negative (Negative)
--- NOTE | 2017-04-12 12:03 | ED ---
Kristen Ordonez Rebecca, scribed for Scott Lua MD on 04/12/17 at 0757 . Shortness of Breath - HPI Summary HPI Summary: Pt is an 89 y/o M BIBA from [place] who presents to ED c/o SOB. SOB characterized as dyspnea at rest and has been present for "quite some time." Per EMS report, sx are unchanged between lying flat, sitting up and upon exertion. He arrived on 4L O2 per Os though he does not use O2 at home. Denies any other complaints including fever, chills, cough, CP, abd pain and edema. Pt confirms he has been able to eat and drink. Daughter states a customer care professional at his [employer] called her and said he was doing well but he wanted to be evaluated by [facility] ED. Daughter reports he typically stays active. Pt has a pacemaker. - History of Current Complaint Chief Complaint: EDShortnessOfBreath Time Seen by Provider: 04/12/17 07:51 Hx Obtained From: Patient Onset/Duration: Still Present Dyspnea At: Rest Aggrevating Factors: Nothing Alleviating Factors: Nothing Associated Signs & Symptoms: Negative - Allergy/Home Medications Allergies/Adverse Reactions: Allergies Allergy/AdvReac Type Severity Reaction Status Date / Time No Known Allergies Allergy Verified 01/21/17 13:39 PMH/Surg Hx/FS Hx/Imm Hx Endocrine/Hematology History: Denies: Hx Anticoagulant Therapy, Hx Blood Disorders, Hx Blood Transfusions, Hx Bone Marrow Disease, Hx Diabetes, Hx Systemic Lupus Erythematosus, Hx Sickle Cell Disease, Hx Thyroid Disease, Hx Anemia, Hx Unexplained Bleeding, Other Endocrine/Hematological Disorders Cardiovascular History: Reports: Hx Auto Implanted Cardiovert Defib, Hx Hypertension, Hx Pacemaker/ICD - UNSAFE FOR MRI - ABANDONED [employer], Hx Valvular Heart Disease Denies: Hx Aneurysm, Hx Cardiac Arrest, Hx Cardiomegaly, Hx Congenital Heart Disease, Hx Congestive Heart Failure, Hx Coronary Artery Disease, Hx Deep Vein Thrombosis, Hx Hypercholesterolemia, Hx Hypotension, Hx Peripheral Vascular Disease, Hx Rheumatic Fever, Hx Syncope, Other Cardiovascular Problems/Disorders Respiratory History: Denies: Hx Asthma, Hx Chronic Bronchitis, Hx Chronic Obstructive Pulmonary Disease (COPD), Hx Cystic Fibrosis, Hx Lung Cancer, Hx Pleural Effusion, Hx Pneumonia, Hx Pulmonary Edema, Hx Pulmonary Embolism, Hx Seasonal Allergies, Hx Sleep Apnea, Other Respiratory Problems/Disorders GI History: Reports: Hx Gastroesophageal Reflux Disease Denies: Hx Cirrhosis, Hx Crohn's Disease, Hx Diverticulosis, Hx Gall Bladder Disease, Hx Gastrointestinal Bleed, Hx Hiatal Hernia, Hx Irritable Bowel, Hx Jaundice, Hx Obstructive Bowel, Hx Ileostomy, Hx Pyloric Stenosis, Hx Ulcer, Other GI Disorders History: Reports: Hx Benign Prostatic Hyperplasia Denies: Hx Acute Renal Failure, Hx Chronic Renal Failure, Hx Dialysis, Hx Kidney Infection, Hx Kidney Stones, Other Problems/Disorders Musculoskeletal History: Denies: Hx Arthritis, Hx Back Problems, Hx Bursitis, Hx Congenital Bone Abnormalities, Hx Fibromyalgia, Hx Gout, Hx Orthopedic Injury, Hx Osteoporosis, Hx Scoliosis, Hx Tendonitis, Other Musculoskeletal History Sensory History: Reports: Hx Cataracts, Hx Contacts or Glasses Denies: Hx Eye Injury, Hx Eye Prosthesis, Hx Glaucoma, Hx Macular Degeneration, Hx Vision Problem, Hx Deafness, Hx Hearing Aid, Hx Hearing Problem , Other Sensory Impairments Opthamlomology History: Reports: Hx Cataracts, Hx Contacts or Glasses Denies: Hx Eye Injury, Hx Eye Prosthesis, Hx Glaucoma, Hx Macular Degeneration, Hx Vision Problem, Other Sensory Impairments Neurological History: Reports: Hx Seizures Denies: Hx Dementia, Hx Developmental Delay, Hx Headaches, Hx Migraine, Hx Nerve Disease, Hx Spinal Cord Injury, Hx Transient Ischemic Attacks (TIA), Other Neuro Impairments/Disorders Psychiatric History: Reports: Hx Anxiety, Hx Depression Denies: Hx Attention Deficit Hyperactivity Disorder, Hx Eating Disorder, Hx Panic Disorder, Hx Post Traumatic Stress Disorder, Hx Inpatient Treatment, Hx Community Mental Health Tx, Hx Schizophrenia, Hx Bipolar Disorder, Hx Suicide Attempt, Hx of Violent Episodes Against Others, Hx Substance Abuse, Other Psychiatric Issues/Disorders - Cancer History Hx Chemotherapy: No Hx Radiation Therapy: No - Surgical History Surgery Procedure, Year, and Place: [employer] PACEMAKER W/ [employer] LEADS- ABANDONED 1999 Hx Anesthesia Reactions: No Infectious Disease History: No Infectious Disease History: Reports: Hx Shingles Denies: Hx Clostridium Difficile, Hx Hepatitis, Hx Human Immunodeficiency Virus (HIV), Hx Tuberculosis, Traveled Outside the [place] in Last 30 Days - Family History Known Family History: Positive: Hypertension - Social History Alcohol Use: Daily Alcohol Amount: 1 beer a day Substance Use Type: Reports: None Smoking Status (MU): Former Smoker Review of Systems Negative: Fever, Chills Negative: Chest Pain Positive: Shortness Of Breath. Negative: Cough Negative: Abdominal Pain Negative: Edema All Other Systems Reviewed And Are Negative: Yes Physical Exam - Summary Physical Exam Summary: General: well-appearing, no pain distress Skin: warm, color reflects adequate perfusion, dry Head: normal Eyes: EOMI, MARISOL ENT: normal Neck: supple, nontender Respiratory: Crackles in the bases, breath sounds present Cardiovascular: RRR, murmur auscultated Abdomen: soft, nontender Bowel: present Musculoskeletal: normal, strength/ROM intact Neurological: normal, sensory/motor intact, A&O x3 Psychological: affect/mood appropriate Triage Information Reviewed: Yes Vital Signs On Initial Exam: Initial Vitals BP 170/96 04/12/17 07:04 Vital Signs Reviewed: Yes - Vira Coma Scale Coma Scale Total: 15 Diagnostics - Vital Signs Vital Signs Temp Pulse Resp BP Pulse Ox 04/12/17 07:30 74 24 153/86 99 04/12/17 07:06 98.6 F 80 21 170/96 95 04/12/17 07:04 170/96 - Laboratory Lab Results: Lab Results 04/12/17 04/12/17 04/12/17 Range/Units 08:00 08:00 08:00 WBC 7.1 (3.5-10.8) 10^3/ul RBC 4.02 (4.0-5.4) 10^6/ul Hgb 12.3 L (14.0-18.0) g/dl Hct 36 L (42-52) % MCV 91 (80-94) fL MCH 31 (27-31) pg MCHC 34 (31-36) g/dl RDW 14 (10.5-15) % Plt Count 215 (150-450) 10^3/ul MPV 8 (7.4-10.4) um3 Neut % (Auto) 65.0 (38-83) % Lymph % (Auto) 21.4 L (25-47) % [place] % (Auto) 10.8 H (1-9) % Eos % (Auto) 2.2 (0-6) % Baso % (Auto) 0.6 (0-2) % Absolute Neuts (auto) 4.6 (1.5-7.7) 10^3/ul Absolute Lymphs (auto) 1.5 (1.0-4.8) 10^3/ul Absolute Monos (auto) 0.8 (0-0.8) 10^3/ul Absolute Eos (auto) 0.2 (0-0.6) 10^3/ul Absolute Basos (auto) 0 (0-0.2) 10^3/ul Absolute Nucleated RBC 0 10^3/ul Nucleated RBC % 0 INR (Anticoag Therapy) 1.10 (0.89-1.11) APTT 30.0 (26.0-36.3) seconds Sodium 139 (133-145) mmol/L Potassium 3.5 (3.5-5.0) mmol/L Chloride 108 (101-111) mmol/L Carbon Dioxide 24 (22-32) mmol/L Anion Gap 7 (2-11) mmol/L BUN 16 (6-24) mg/dL Creatinine 1.05 (0.67-1.17) mg/dL Est GFR ( Amer) 85.5 (>60) Est GFR (Non-Af Amer) 66.5 (>60) BUN/Creatinine Ratio 15.2 (8-20) Glucose 107 H (70-100) mg/dL Lactic Acid (0.5-2.0) mmol/L Calcium 9.3 (8.6-10.3) mg/dL Magnesium 1.9 (1.9-2.7) mg/dL Total Bilirubin 0.50 (0.2-1.0) mg/dL AST 22 (13-39) U/L ALT 11 (7-52) U/L Alkaline Phosphatase 83 (34-104) U/L Total Creatine Kinase 28 (10-223) U/L Troponin I 0.01 (<0.04) ng/mL C-Reactive Protein 1.41 (< 5.00) mg/L B-Natriuretic Peptide ( - 100) pg/mL Total Protein 5.8 L (6.4-8.9) g/dL Albumin 3.4 (3.2-5.2) g/dL Globulin 2.4 (2-4) g/dL Albumin/Globulin Ratio 1.4 (1-3) Lipase 14 (11.0-82.0) U/L TSH 1.39 (0.34-5.60) mcIU/mL Urine Color Urine Appearance Urine pH (5-9) Ur Specific [place] (1.010-1.030) Urine Protein (Negative) Urine Ketones (Negative) Urine Blood (Negative) Urine Nitrate (Negative) Urine Bilirubin (Negative) Urine Urobilinogen (Negative) Ur Leukocyte Esterase (Negative) Urine WBC (Auto) (Absent) Urine RBC (Auto) (Absent) Ur Squamous Epith Cells (Absent) Urine Bacteria (Absent) Hyaline Casts (Absent) Urine Glucose (Negative) Urine Ascorbic Acid (Negative) Digoxin 0.2 L (0.8-2.0) ng/ml 04/12/17 04/12/17 04/12/17 Range/Units 08:00 08:00 10:30 WBC (3.5-10.8) 10^3/ul RBC (4.0-5.4) 10^6/ul Hgb (14.0-18.0) g/dl Hct (42-52) % MCV (80-94) fL MCH (27-31) pg MCHC (31-36) g/dl RDW (10.5-15) % Plt Count (150-450) 10^3/ul MPV (7.4-10.4) um3 Neut % (Auto) (38-83) % Lymph % (Auto) (25-47) % [place] % (Auto) (1-9) % Eos % (Auto) (0-6) % Baso % (Auto) (0-2) % Absolute Neuts (auto) (1.5-7.7) 10^3/ul Absolute Lymphs (auto) (1.0-4.8) 10^3/ul Absolute Monos (auto) (0-0.8) 10^3/ul Absolute Eos (auto) (0-0.6) 10^3/ul Absolute Basos (auto) (0-0.2) 10^3/ul Absolute Nucleated RBC 10^3/ul Nucleated RBC % INR (Anticoag Therapy) (0.89-1.11) APTT (26.0-36.3) seconds Sodium (133-145) mmol/L Potassium (3.5-5.0) mmol/L Chloride (101-111) mmol/L Carbon Dioxide (22-32) mmol/L Anion Gap (2-11) mmol/L BUN (6-24) mg/dL Creatinine (0.67-1.17) mg/dL Est GFR ( Amer) (>60) Est GFR (Non-Af Amer) (>60) BUN/Creatinine Ratio (8-20) Glucose (70-100) mg/dL Lactic Acid 1.2 (0.5-2.0) mmol/L Calcium (8.6-10.3) mg/dL Magnesium (1.9-2.7) mg/dL Total Bilirubin (0.2-1.0) mg/dL AST (13-39) U/L ALT (7-52) U/L Alkaline Phosphatase (34-104) U/L Total Creatine Kinase (10-223) U/L Troponin I (<0.04) ng/mL C-Reactive Protein (< 5.00) mg/L B-Natriuretic Peptide 58 ( - 100) pg/mL Total Protein (6.4-8.9) g/dL Albumin (3.2-5.2) g/dL Globulin (2-4) g/dL Albumin/Globulin Ratio (1-3) Lipase (11.0-82.0) U/L TSH (0.34-5.60) mcIU/mL Urine Color Yellow Urine Appearance Cloudy Urine pH 5.0 (5-9) Ur Specific [place] 1.019 (1.010-1.030) Urine Protein Negative (Negative) Urine Ketones Negative (Negative) Urine Blood Negative (Negative) Urine Nitrate Negative (Negative) Urine Bilirubin Negative (Negative) Urine Urobilinogen Negative (Negative) Ur Leukocyte Esterase 2+ H (Negative) Urine WBC (Auto) 1+(6-10/hpf) H (Absent) Urine RBC (Auto) 1+(3-5/hpf) H (Absent) Ur Squamous Epith Cells Present H (Absent) Urine Bacteria Absent (Absent) Hyaline Casts Present H (Absent) Urine Glucose Negative (Negative) Urine Ascorbic Acid * H (Negative) Digoxin (0.8-2.0) ng/ml Result Diagrams: 04/12/17 08:00 04/12/17 08:00 Lab Statement: Any lab studies that have been ordered have been reviewed, and results considered in the medical decision making process. - Radiology CXR Xray Interpretation: No Acute Changes - NO ACTIVE CARDIOPULONARY DISEASE. Radiology Interpretation Completed By: Radiologist - EKG 0729 Cardiac Rate: NL - 72 bpm EKG Interpretation: Atrial sensed ventricular paced rhythm Re-Evaluation - Re-Evaluation First Eval Re-Evaluation Time: 09:40 Change: Improved Comment: Pt is talking. Discussed lab results and that a UA will be done. Second Eval Re-Evaluation Time: 11:55 Change: Improved Comment: Discussed D/C plan, lab and CXR results with the pt. Course/Dx - Course Assessment/Plan: Pt is an 89 y/o M BIBA from [place] who presents to ED c/o SOB characterized as dyspnea at rest and has been present for "quite some time. " Per EMS report, sx are unchanged between lying flat, sitting up and upon exertion. He arrived on 4L O2 per Os though he does not use O2 at home. Denies any other complaints including fever, chills, cough, CP, abd pain and edema. Pt confirms he has been able to eat and drink. EKG is atrial sensed ventricular paced rhythm. CXR reveals no acute findings. Digoxin of 0.2, WBC of 7.1, Hgb of 12.3, Hct of 36. In the ED course, pt recieved IV fluids which improved sx. Elevated BP noted and advised to f/u with PCP. DISCUSSED THE WBCS IN THE URINE WITH PATIENT/FAMILY. PT DENIES UTI SX THEREFORE, NO ABX AT THIS TIME. PT AMBULATED IN ED. 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 DISCUSSED RESULTS WITH PATIENT/FAMILY. PATIENT WISHES TO GO HOME. WILL F/U WITH PMD; RETURN IF WORSE. - Diagnoses Provider Diagnoses: Dyspnea Discharge - Discharge Plan Condition: Stable Disposition: HOME Patient Education Materials: Dyspnea (ED) Referrals: Ac Eisenberg MD [Primary Care Provider] - Additional Instructions: FOLLOW UP WITH YOUR DOCTOR. RETURN TO THE EMERGENCY DEPARTMENT FOR ANY WORSENING OF YOUR CONDITION OR QUESTIONS OR CONCERNS. The documentation as recorded by the Kristen alexander Rebecca accurately reflects the service I personally performed and the decisions made by me, Scott Lua MD.
[2017-04-12 12:30] VITALS: BP 153/93
== END 2017-04-12 12:29 | disposition home or self-care (01) ==
LOC: ED 06:57
DX: R06.02 Shortness of breath (principal); R06.00 Dyspnea, unspecified; Z87.891 Personal history of nicotine dependence; Z86.79 Personal history of other diseases of the circulatory system
CPT/HCPCS: 36415; 71010; 80053; 80162; 81003; 81015; 82550; 83605; 83690; 83735; 83880; 84443; 84484; 85025; 85610; 85730; 86140; 87086; 93005; 99282